=== PATIENT | female | born 1955 | race Caucasian/White ===

== ENCOUNTER 2018-09-04 10:33 | Inpatient (IN) | payer MEDICARE, MEDICAID ==
[2018-09-04] MEDS ORDERED: ceFAZolin 2 GM in Sodium Chloride 0.9% 50 ML IVPUSH SCH (16:00)
[2018-09-04] MEDS ORDERED: ceFAZolin 1 GM Vial IVPUSH SCH (16:00)
[2018-09-04] MEDS ORDERED: Albuterol/Ipratropium 3.0-0.5 MG/3 ML Neb Soln INH PRN (16:46)
[2018-09-04] MEDS ORDERED: Sodium Chloride 0.65% Nasal Spray 45 ML Bottle NAS PRN (16:46)
[2018-09-04] MEDS: Insulin Aspart 100 Units/ML 3 ML Pen SUBCUT SCH ×2 (17:16→22:12)
[2018-09-04] MEDS: Potassium Chloride 10 MEQ Tab.ER PO SCH (17:17)
[2018-09-04] MEDS: ceFAZolin 2 GM in Sodium Chloride 0.9% 50 ML IV SCH (17:17)
[2018-09-04] MEDS: Rifampin 300 MG Cap PO SCH (19:50)
[2018-09-04] MEDS: Multivitamin Tab PO SCH (19:50)
--- NOTE | 2018-09-04 20:16 | PCM.HP ---
H&P History of Present Illness - General Date of Service: 09/04/18 Admit Problem/Dx: Admission Diagnosis/Problem Admission Diagnosis/Problem Hardware complicating wound infection Source of Information: Family, Old Records History Limitations: Reports: Other (developmental disability) - History of Present Illness Initial Comments - Free Text/Narative: Patient admitted swing bed for IV antibiotics for the next 5 weeks. Patient had initially presented to our clinic and was seen by Sandy for right leg swelling and discomfort 3 days prior to being referred to [facility]. History of right lower extremity fracture with hardware placement in 2012. There was concern about cellulitis versus deep tissue involvement and hardware. Was started on IV Levaquin and switched to Vancomycin. Assessment concern was for deeper involvement so hardware was ultimately removed. Will continue IV antibiotics and physical therapy for strengthening Onset of Symptoms: Reports: Gradual Duration of Symptoms: Reports: Week(s): Location: Reports: Lower Extremity, Right Quality: Reports: Ache Severity: Mild - Related Data Allergies/Adverse Reactions: Allergies Allergy/AdvReac Type Severity Reaction Status Date / Time boric acid Allergy Cannot Verified 08/22/18 12:30 Remember cephalexin monohydrate Allergy Cannot Verified 09/04/18 11:59 [From Keflex] Remember clindamycin Allergy Cannot Verified 09/04/18 11:59 Remember erythromycin base Allergy Cannot Verified 09/04/18 11:59 [Erythromycin Base] Remember folic acid Allergy Other Verified 09/04/18 11:59 ibuprofen Allergy Cannot Verified 09/04/18 11:59 Remember magnesium hydroxide Allergy Cannot Verified 09/04/18 11:59 [From Milk of Magnesia] Remember magnesium hydroxide Allergy Cannot Verified 09/04/18 11:59 [From Milk of Magnesia] Remember Penicillins Allergy Cannot Verified 09/04/18 11:59 Remember sulfamethoxazole Allergy Cannot Verified 09/04/18 11:59 [From Bactrim] Remember trimethoprim [From Bactrim] Allergy Cannot Verified 09/04/18 11:59 Remember Home Medications: Home Meds Cholestyramine (With Sugar) [Cholestyramine Powder] 1 scoop PO BID 12/01/13 [ History] Insulin Aspart [NovoLOG] 1 - 10 units SUBCUT QIDACANDBED 12/01/13 [History] Levothyroxine 125 mcg PO DAILY 12/01/13 [History] Multivitamin [Multi-Vitamin Daily] 1 each PO BID 12/01/13 [History] Aspirin 81 mg PO DAILY 03/13/15 [History] Denosumab [Prolia] 60 mg SUBCUT Q6M 03/13/15 [History] Fexofenadine/Pseudoephedrine [Tammy-D 24 Hour Tablet] 1 tab PO DAILY 06/08/16 [History] Potassium Chloride [Klor-Con 10] 10 meq PO BIDMEALS #60 tab.er 06/11/16 [Rx] Albuterol/Ipratropium [DuoNeb 3.0-0.5 MG/3 ML] 1 ampule INH QID PRN 04/26/18 [ History] Fluticasone Propionate [Flonase Allergy Relief] 2 inh NASBOTH DAILY 04/26/18 [ History] Iron Ps Cmplx/Vit B12/Fa [Poly-Iron 150 Forte] 150 mg PO DAILY 04/26/18 [History ] Carboxymethylcellulose Sodium [Refresh Tears] 1 drop EYEBOTH TID 08/22/18 [ History] Insulin Degludec [Tresiba] 10 units SQ DAILY 09/04/18 [History] Nystatin 1 applic TOP BID PRN 09/04/18 [History] Sodium Chloride [[place] Saline] 1 spray KRUPA Q12H PRN 09/04/18 [History] Past Medical History HEENT History: Reports: Allergic Rhinitis, Other (See Below) Other HEENT History: dry eyes Cardiovascular History: Reports: Heart Failure, High Cholesterol, Hypertension, Other (See Below) Other Cardiovascular History: CVA Gastrointestinal History: Reports: Chronic Diarrhea, GERD Other Gastrointestinal History: reflux Genitourinary History: Reports: Other (See Below) Other Genitourinary History: yeast infections Musculoskeletal History: Reports: Osteoarthritis, Osteoporosis Other Musculoskeletal History: tibial plateau fracture in May 2014. Surgical repair by Dr. Macedo at [facility]. Patient resumed weight bearing with ambultation November 2013. 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 Hematologic History: Reports: Anemia Dermatologic History: Reports: Cellulitis - Infectious Disease History Infectious Disease History: Reports: C-Difficile, Hepatitis B, MRSA - Past Surgical History HEENT Surgical History: Reports: Adenoidectomy, Tonsillectomy Cardiovascular Surgical History: Reports: Other (See Below) Other Musculoskeletal Surgeries/Procedures:: Tib Fib repair to right leg Social & Family History - Tobacco Use Smoking Status *Q: Never Smoker - Caffeine Use Caffeine Use: Reports: None - Recreational Drug Use Recreational Drug Use: No H&P Review of Systems - Review of Systems: Review Of Systems: See Below General: Reports: Malaise, Weakness. Denies: Fever, Chills, Decreased Appetite HEENT: Reports: Rhinitis, Sinus Congestion Pulmonary: Denies: Shortness of Breath, Cough Cardiovascular: Reports: No Symptoms Gastrointestinal: Denies: Abdominal Pain, Nausea, Vomiting Genitourinary: Reports: Incontinence Musculoskeletal: Reports: Leg Pain Skin: Reports: Other (incision to right leg) Exam - Exam Exam: See Below - Vital Signs Vital Signs: Last Vital Signs Temp 98.2 F 09/04/18 19:47 Pulse 88 09/04/18 19:47 Resp 20 09/04/18 19:47 BP 122/57 L 09/04/18 19:47 Pulse Ox 98 09/04/18 19:47 Weight: 150 lb - Exam General: Alert, Cooperative HEENT: Conjunctiva Clear, EOMI, Nares Patent, Rhinitis Neck: Supple Lungs: Clear to Auscultation, Normal Respiratory Effort Cardiovascular: Regular Rate, Regular Rhythm GI/Abdominal Exam: Normal Bowel Sounds, Soft, Non-Tender Extremities: No Pedal Edema, Leg Pain Skin: Incision (incision/sutures intact to right knee region. Is mildly tender to this area with palpation. Has chronic venous discoloration to legs) Neuro Extensive - Mental Status: Alert, Other (responses appropriate. History of Down Syndrome/Developmental delay. ) - Patient Data Lab Results Last 24 hrs: Laboratory Results - last 24 hr 09/04/18 Range/Units 17:07 POC Glucose 281 H (75-105) mg/dl - Problem List (1) Hardware complicating wound infection SNOMED Code(s): 136925064 ICD Code: T84.7XXA - INFECT/INFLM REACT DUE TO OTH INT ORTH PROSTH DEV/GRFT, INIT Status: Acute Priority: High Current Visit: Yes (2) Diabetes mellitus type 2 SNOMED Code(s): 31282766 ICD Code: E11.9 - TYPE 2 DIABETES MELLITUS WITHOUT COMPLICATIONS Status: Chronic Priority: Medium Current Visit: Yes Problem List Initiated/Reviewed/Updated: Yes Orders Last 24hrs: Active Orders 24 hr Category Date Time Status Patient Status [ADT] Routine ADT 09/04/18 15:41 Active Communication Order [RC] 0800 Care 09/04/18 15:41 Active Communication Order [RC] ROUTINE Care 09/04/18 15:41 Active Oxygen Therapy [RC] .PRN Care 09/04/18 15:41 Active Up With Assistance [RC] .PRN Care 09/04/18 15:41 Active Vital Signs [RC] 0800,2000 Care 09/04/18 15:41 Active Wound Care [RC] 0800 Care 09/04/18 15:41 Active PT Evaluation and Treatment [CONS] Routine Cons 09/04/18 15:41 Active Consistent Carbohydrate Diet [DIET] Diet 09/04/18 Dinner Active C-REACTIVE PROTEIN [CHEM] Routine Lab 09/25/18 05:11 Ordered C-REACTIVE PROTEIN [CHEM] Routine Lab 10/02/18 05:11 Ordered C-REACTIVE PROTEIN [CHEM] Routine Lab 10/09/18 05:11 Ordered C-REACTIVE PROTEIN [CHEM] Routine Lab 10/16/18 05:11 Ordered C-REACTIVE PROTEIN [CHEM] Timed Lab 09/11/18 05:11 Ordered CBC WITH AUTO DIFF [HEME] Routine Lab 09/18/18 05:11 Ordered CBC WITH AUTO DIFF [HEME] Routine Lab 09/25/18 05:11 Ordered CBC WITH AUTO DIFF [HEME] Routine Lab 10/02/18 05:11 Ordered CBC WITH AUTO DIFF [HEME] Routine Lab 10/09/18 05:11 Ordered CBC WITH AUTO DIFF [HEME] Routine Lab 10/16/18 05:11 Ordered CBC WITH AUTO DIFF [HEME] Timed Lab 09/11/18 05:11 Ordered COMPREHENSIVE METABOLIC PN,CMP [CHEM] Routine Lab 09/18/18 05:11 Ordered COMPREHENSIVE METABOLIC PN,CMP [CHEM] Routine Lab 09/25/18 05:11 Ordered COMPREHENSIVE METABOLIC PN,CMP [CHEM] Routine Lab 10/02/18 05:11 Ordered COMPREHENSIVE METABOLIC PN,CMP [CHEM] Routine Lab 10/09/18 05:11 Ordered COMPREHENSIVE METABOLIC PN,CMP [CHEM] Routine Lab 10/16/18 05:11 Ordered COMPREHENSIVE METABOLIC PN,CMP [CHEM] Timed Lab 09/11/18 05:11 Ordered CRP [C-REACTIVE PROTEIN] [CHEM] Routine Lab 09/18/18 05:11 Ordered SEDIMENTATION RATE MANUAL [HEME] Routine Lab 09/18/18 05:11 Ordered SEDIMENTATION RATE MANUAL [HEME] Routine Lab 09/25/18 05:11 Ordered SEDIMENTATION RATE MANUAL [HEME] Routine Lab 10/02/18 05:11 Ordered SEDIMENTATION RATE MANUAL [HEME] Routine Lab 10/09/18 05:11 Ordered SEDIMENTATION RATE MANUAL [HEME] Routine Lab 10/16/18 05:11 Ordered SEDIMENTATION RATE MANUAL [HEME] Timed Lab 09/11/18 05:11 Ordered Albuterol/Ipratropium [DuoNeb 3.0-0.5 MG/3 ML] Med 09/04/18 16:46 Active 3 ml INH QID PRN Aspirin [Halfprin] Med 09/05/18 08:00 Active 81 mg PO DAILY Carboxymethylcellulose Sodium [Refresh Tears] Med 09/04/18 20:00 Pending 1 drop EYEBOTH TID Cholestyramine (With Sugar) [Cholestyramine Powder] Med 09/04/18 20:00 Pending 1 scoop PO BID Enoxaparin [Lovenox] Med 09/05/18 08:00 Active 30 mg SUBCUT DAILY Fluticasone Propionate [Flonase] Med 09/05/18 08:00 Active 0 gm NASBOTH DAILY Heparin Sodium [Heparin Lock Flush 100 Units/ML] Med 09/04/18 16:00 Active 300 units FLUSH Q8H Insulin Aspart [NovoLOG] Med 09/04/18 17:30 Active See Protocol SUBCUT WITHMEALSANDBED Insulin Glarg,Human.Rec.Analog [LantUS] Med 09/05/18 08:00 Active 10 unit SUBCUT DAILY Iron Polysaccharides Complex [Ferrex 150] Med 09/05/18 08:00 Active 150 mg PO DAILY Levothyroxine Med 09/05/18 07:00 Active 125 mcg PO 0700 Multivitamins [Tab-A-Snow] Med 09/04/18 20:00 Active 1 tab PO BID Nystatin [Nystop] Med 09/04/18 16:46 Active 0 gm TOP BID PRN Potassium Chloride [Klor-Con 10] Med 09/04/18 17:30 Active 10 meq PO BIDMEALS Sodium Chloride 0.65% [[place] Nasal [place]] Med 09/04/18 16:46 Active 0 ml KRUPA Q12H PRN ceFAZolin [Ancef] 2 gm Med 09/04/18 16:17 Active Sodium Chloride 0.9% [Normal Saline] 50 ml IV Q8H rifAMPin Med 09/04/18 20:00 Active 300 mg PO BID Resuscitation Status Routine Resus Stat 09/04/18 14:53 Ordered Medication Orders Albuterol/Ipratropium (Duoneb 3.0-0.5 Mg/3 Ml) 3 ml INH QID PRN PRN Reason: Wheezing Aspirin (Halfprin) 81 mg PO DAILY [facility] Enoxaparin Sodium (Lovenox) 30 mg SUBCUT DAILY [facility] Fluticasone Propionate (Flonase) 0 gm NASBOTH DAILY [facility] Heparin Sodium (Porcine) (Heparin Lock Flush 100 Units/Ml) 300 units FLUSH Q8H [facility] Last Admin: 09/04/18 17:17 Dose: 300 units Cefazolin Sodium 2 gm/ Sodium (Chloride) 50 mls @ 100 mls/hr IV Q8H [facility] Last Admin: 09/04/18 17:17 Dose: 100 mls/hr Insulin Aspart (Novolog) 0 unit SUBCUT WITHMEALSANDBED [facility]; Protocol Last Admin: 09/04/18 17:16 Dose: 6 units Insulin Glargine (Lantus) 10 unit SUBCUT DAILY [facility] Levothyroxine Sodium (Levothyroxine) 125 mcg PO 0700 [facility] Multivitamins/Minerals/Vitamin C (Tab-A-Snow) 1 tab PO BID [facility] Last Admin: 09/04/18 19:50 Dose: 1 tab Non-Formulary Medication (Carboxymethylcellulose Sodium [Refresh Tears]) 1 drop EYEBOTH TID [facility] Non-Formulary Medication (Cholestyramine (With Sugar) [Cholestyramine Powder]) 1 scoop PO BID [facility] Nystatin (Nystop) 0 gm TOP BID PRN PRN Reason: Wound Care Polysaccharide Iron Complex (Ferrex 150) 150 mg PO DAILY [facility] Potassium Chloride (Klor-Con 10) 10 meq PO BIDMEALS [facility] Last Admin: 09/04/18 17:17 Dose: 10 meq Rifampin (Rifampin) 300 mg PO BID [facility] Last Admin: 09/04/18 19:50 Dose: 300 mg Sodium Chloride ([place] Nasal [place]) 0 ml KRUPA Q12H PRN PRN Reason: Nasal Dryness Assessment/Plan Comment:: Admit to swing bed. Continue IV Ancef and Rifampin for the next 5 weeks. Weekly labs, will be forwarded to ID at [facility]. Physical therapy for strengthening.
[2018-09-05] MEDS: ceFAZolin 2 GM in Sodium Chloride 0.9% 50 ML IV SCH ×3 (01:03→15:49)
[2018-09-05] MEDS: Levothyroxine 125 MCG Tab PO SCH (06:52)
[2018-09-05] MEDS: Iron Polysaccharides Complex 150 MG Cap PO SCH (07:41)
[2018-09-05] MEDS: Potassium Chloride 10 MEQ Tab.ER PO SCH ×2 (07:42→17:19)
[2018-09-05] MEDS: Enoxaparin 30 MG/0.3 ML Syringe SUBCUT SCH (07:42)
[2018-09-05] MEDS: Aspirin 81 MG Tab.EC PO SCH (07:42)
[2018-09-05] MEDS: Multivitamin Tab PO SCH ×2 (07:44→19:21)
[2018-09-05] MEDS: Rifampin 300 MG Cap PO SCH ×2 (07:44→19:21)
[2018-09-05] MEDS: Fluticasone Propionate Nasal Spray 16 GM Bottle NASBOTH SCH (08:24)
[2018-09-05] MEDS: Insulin Glarg,Human.Rec.Analog 100 UNIT/ML ML SUBCUT SCH (08:33)
[2018-09-05] MEDS: Nystatin Topical Powder 15 GM Bottle TOP PRN ×2 (10:06→18:46)
[2018-09-06] MEDS: ceFAZolin 2 GM in Sodium Chloride 0.9% 50 ML IV SCH ×4 (00:50→23:40)
[2018-09-06] MEDS: Levothyroxine 125 MCG Tab PO SCH (06:36)
[2018-09-06] MEDS: Iron Polysaccharides Complex 150 MG Cap PO SCH (07:39)
[2018-09-06] MEDS: Aspirin 81 MG Tab.EC PO SCH (07:39)
[2018-09-06] MEDS: Potassium Chloride 10 MEQ Tab.ER PO SCH ×2 (07:39→17:33)
[2018-09-06] MEDS: Multivitamin Tab PO SCH ×2 (07:40→19:56)
[2018-09-06] MEDS: Insulin Glarg,Human.Rec.Analog 100 UNIT/ML ML SUBCUT SCH (07:40)
[2018-09-06] MEDS: Enoxaparin 30 MG/0.3 ML Syringe SUBCUT SCH (07:59)
[2018-09-06] MEDS: Fluticasone Propionate Nasal Spray 16 GM Bottle NASBOTH SCH (08:04)
[2018-09-06] MEDS: Rifampin 300 MG Cap PO SCH ×2 (08:04→19:56)
[2018-09-06] MEDS: Nystatin Topical Powder 15 GM Bottle TOP PRN ×2 (08:05→20:02)
[2018-09-07] MEDS: Levothyroxine 125 MCG Tab PO SCH (06:40)
[2018-09-07] MEDS: ceFAZolin 2 GM in Sodium Chloride 0.9% 50 ML IV SCH ×3 (08:05→23:32)
[2018-09-07] MEDS: Enoxaparin 30 MG/0.3 ML Syringe SUBCUT SCH (08:08)
[2018-09-07] MEDS: Potassium Chloride 10 MEQ Tab.ER PO SCH ×2 (08:10→17:47)
[2018-09-07] MEDS: Multivitamin Tab PO SCH ×2 (08:10→19:35)
[2018-09-07] MEDS: Aspirin 81 MG Tab.EC PO SCH (08:10)
[2018-09-07] MEDS: Iron Polysaccharides Complex 150 MG Cap PO SCH (08:10)
[2018-09-07] MEDS: Rifampin 300 MG Cap PO SCH ×2 (08:11→19:35)
[2018-09-07] MEDS: Fluticasone Propionate Nasal Spray 16 GM Bottle NASBOTH SCH (08:11)
[2018-09-07] MEDS: Insulin Glarg,Human.Rec.Analog 100 UNIT/ML ML SUBCUT SCH (08:11)
[2018-09-07] MEDS: Nystatin Topical Powder 15 GM Bottle TOP PRN ×2 (09:17→19:55)
[2018-09-07] MEDS ORDERED: CARBOXYMETHYLCELLULOSE SODIUM EYEBOTH SCH (14:00)
[2018-09-07] MEDS: [UNRECOGNIZED DRUG - OTHER] PO SCH (19:35)
[2018-09-07] MEDS: CHOLESTYRAMINE PO SCH (19:35)
[2018-09-08] MEDS: Levothyroxine 125 MCG Tab PO SCH (06:28)
[2018-09-08] MEDS: ceFAZolin 2 GM in Sodium Chloride 0.9% 50 ML IV SCH ×3 (08:07→23:44)
[2018-09-08] MEDS: [UNRECOGNIZED DRUG - OTHER] PO SCH ×2 (08:14→19:54)
[2018-09-08] MEDS: CHOLESTYRAMINE PO SCH ×2 (08:14→19:54)
[2018-09-08] MEDS: Iron Polysaccharides Complex 150 MG Cap PO SCH (08:15)
[2018-09-08] MEDS: Multivitamin Tab PO SCH ×2 (08:15→19:49)
[2018-09-08] MEDS: Fluticasone Propionate Nasal Spray 16 GM Bottle NASBOTH SCH (08:16)
[2018-09-08] MEDS: Aspirin 81 MG Tab.EC PO SCH (08:17)
[2018-09-08] MEDS: Potassium Chloride 10 MEQ Tab.ER PO SCH ×2 (08:17→17:47)
[2018-09-08] MEDS: Enoxaparin 30 MG/0.3 ML Syringe SUBCUT SCH (08:19)
[2018-09-08] MEDS: Rifampin 300 MG Cap PO SCH ×2 (08:21→19:53)
[2018-09-08] MEDS: Insulin Glarg,Human.Rec.Analog 100 UNIT/ML ML SUBCUT SCH (08:30)
--- NOTE | 2018-09-08 17:50 | PCM.SN ---
- Free Text/Narrative Note: Chart review reveals patients blood sugars have been 300-400s the past few days. Will increase Lantus from 10 units to 20 units daily. QID accu checks. Continue moderate dose SS novolog.
[2018-09-08] MEDS: Nystatin Topical Powder 15 GM Bottle TOP PRN (19:56)
[2018-09-09] MEDS: Levothyroxine 125 MCG Tab PO SCH (06:48)
[2018-09-09] MEDS: [UNRECOGNIZED DRUG - OTHER] PO SCH ×2 (08:32→19:42)
[2018-09-09] MEDS: Enoxaparin 30 MG/0.3 ML Syringe SUBCUT SCH (08:32)
[2018-09-09] MEDS: ceFAZolin 2 GM in Sodium Chloride 0.9% 50 ML IV SCH ×2 (08:32→16:53)
[2018-09-09] MEDS: Fluticasone Propionate Nasal Spray 16 GM Bottle NASBOTH SCH (08:32)
[2018-09-09] MEDS: CHOLESTYRAMINE PO SCH ×2 (08:32→19:42)
[2018-09-09] MEDS: Insulin Glarg,Human.Rec.Analog 100 UNIT/ML ML SUBCUT SCH (08:33)
[2018-09-09] MEDS: Rifampin 300 MG Cap PO SCH ×2 (08:35→19:43)
[2018-09-09] MEDS: Iron Polysaccharides Complex 150 MG Cap PO SCH (08:35)
[2018-09-09] MEDS: Aspirin 81 MG Tab.EC PO SCH (08:35)
[2018-09-09] MEDS: Potassium Chloride 10 MEQ Tab.ER PO SCH ×2 (08:35→16:53)
[2018-09-09] MEDS: Multivitamin Tab PO SCH ×2 (08:36→19:43)
[2018-09-10] MEDS: ceFAZolin 2 GM in Sodium Chloride 0.9% 50 ML IV SCH ×4 (00:21→23:23)
[2018-09-10] MEDS: Levothyroxine 125 MCG Tab PO SCH (06:50)
[2018-09-10] MEDS: CHOLESTYRAMINE PO SCH ×2 (07:55→19:35)
[2018-09-10] MEDS: [UNRECOGNIZED DRUG - OTHER] PO SCH ×2 (07:55→19:35)
[2018-09-10] MEDS: Rifampin 300 MG Cap PO SCH ×2 (07:56→19:35)
[2018-09-10] MEDS: Insulin Glarg,Human.Rec.Analog 100 UNIT/ML ML SUBCUT SCH (07:57)
[2018-09-10] MEDS: Enoxaparin 30 MG/0.3 ML Syringe SUBCUT SCH (07:57)
[2018-09-10] MEDS: Fluticasone Propionate Nasal Spray 16 GM Bottle NASBOTH SCH (07:59)
[2018-09-10] MEDS: Potassium Chloride 10 MEQ Tab.ER PO SCH ×2 (08:00→16:58)
[2018-09-10] MEDS: Multivitamin Tab PO SCH ×2 (08:01→19:35)
[2018-09-10] MEDS: Aspirin 81 MG Tab.EC PO SCH (08:01)
[2018-09-10] MEDS: Iron Polysaccharides Complex 150 MG Cap PO SCH (08:01)
[2018-09-10] MEDS: Nystatin Topical Powder 15 GM Bottle TOP PRN (19:36)
[2018-09-11] MEDS: Levothyroxine 125 MCG Tab PO SCH (06:28)
[2018-09-11] MEDS: CHOLESTYRAMINE PO SCH ×2 (07:33→19:32)
[2018-09-11] MEDS: [UNRECOGNIZED DRUG - OTHER] PO SCH ×2 (07:33→19:32)
[2018-09-11] MEDS: Aspirin 81 MG Tab.EC PO SCH (07:41)
[2018-09-11] MEDS: Potassium Chloride 10 MEQ Tab.ER PO SCH ×2 (07:42→17:14)
[2018-09-11] MEDS: Multivitamin Tab PO SCH ×2 (07:42→19:32)
[2018-09-11] MEDS: Rifampin 300 MG Cap PO SCH ×2 (07:42→19:32)
[2018-09-11] MEDS: Iron Polysaccharides Complex 150 MG Cap PO SCH (07:42)
[2018-09-11] MEDS: Nystatin Topical Powder 15 GM Bottle TOP PRN (07:42)
[2018-09-11] MEDS: Enoxaparin 30 MG/0.3 ML Syringe SUBCUT SCH (07:43)
[2018-09-11] MEDS: ceFAZolin 2 GM in Sodium Chloride 0.9% 50 ML IV SCH ×2 (07:43→15:38)
[2018-09-11] MEDS: Fluticasone Propionate Nasal Spray 16 GM Bottle NASBOTH SCH (07:43)
[2018-09-11] MEDS: Insulin Glarg,Human.Rec.Analog 100 UNIT/ML ML SUBCUT SCH (08:22)
[2018-09-11] MEDS: Acetaminophen 325 MG Tab PO PRN (08:23)
[2018-09-11] MEDS ORDERED: Acetaminophen 325 MG Tab ONE (08:23)
[2018-09-12] MEDS: ceFAZolin 2 GM in Sodium Chloride 0.9% 50 ML IV SCH ×4 (00:02→23:33)
[2018-09-12] MEDS: Levothyroxine 125 MCG Tab PO SCH (06:51)
[2018-09-12] MEDS: Enoxaparin 30 MG/0.3 ML Syringe SUBCUT SCH (07:37)
[2018-09-12] MEDS: [UNRECOGNIZED DRUG - OTHER] PO SCH ×2 (07:39→19:53)
[2018-09-12] MEDS: CHOLESTYRAMINE PO SCH ×2 (07:39→19:53)
[2018-09-12] MEDS: Iron Polysaccharides Complex 150 MG Cap PO SCH (07:40)
[2018-09-12] MEDS: Fluticasone Propionate Nasal Spray 16 GM Bottle NASBOTH SCH (07:40)
[2018-09-12] MEDS: Aspirin 81 MG Tab.EC PO SCH (07:41)
[2018-09-12] MEDS: Potassium Chloride 10 MEQ Tab.ER PO SCH ×2 (07:41→17:33)
[2018-09-12] MEDS: Multivitamin Tab PO SCH ×2 (07:42→19:52)
[2018-09-12] MEDS: Rifampin 300 MG Cap PO SCH ×2 (07:42→19:54)
[2018-09-12] MEDS: Insulin Glarg,Human.Rec.Analog 100 UNIT/ML ML SUBCUT SCH (08:19)
[2018-09-12] MEDS: Nystatin Topical Powder 15 GM Bottle TOP PRN (09:20)
[2018-09-13] MEDS: Levothyroxine 125 MCG Tab PO SCH (06:40)
[2018-09-13] MEDS: Enoxaparin 30 MG/0.3 ML Syringe SUBCUT SCH (07:35)
[2018-09-13] MEDS: ceFAZolin 2 GM in Sodium Chloride 0.9% 50 ML IV SCH ×3 (07:35→23:22)
[2018-09-13] MEDS: Potassium Chloride 10 MEQ Tab.ER PO SCH ×2 (07:36→17:45)
[2018-09-13] MEDS: Insulin Glarg,Human.Rec.Analog 100 UNIT/ML ML SUBCUT SCH (07:36)
[2018-09-13] MEDS: Multivitamin Tab PO SCH ×2 (07:36→19:51)
[2018-09-13] MEDS: Aspirin 81 MG Tab.EC PO SCH (07:36)
[2018-09-13] MEDS: Iron Polysaccharides Complex 150 MG Cap PO SCH (07:37)
[2018-09-13] MEDS: [UNRECOGNIZED DRUG - OTHER] PO SCH ×2 (07:38→19:52)
[2018-09-13] MEDS: CHOLESTYRAMINE PO SCH ×2 (07:38→19:52)
[2018-09-13] MEDS: Fluticasone Propionate Nasal Spray 16 GM Bottle NASBOTH SCH (07:38)
[2018-09-13] MEDS: Rifampin 300 MG Cap PO SCH ×2 (07:59→19:51)
[2018-09-13] MEDS: Acetaminophen 325 MG Tab PO PRN (15:06)
[2018-09-14] MEDS: Levothyroxine 125 MCG Tab PO SCH (06:21)
[2018-09-14] MEDS: Aspirin 81 MG Tab.EC PO SCH (07:49)
[2018-09-14] MEDS: Iron Polysaccharides Complex 150 MG Cap PO SCH (07:49)
[2018-09-14] MEDS: Potassium Chloride 10 MEQ Tab.ER PO SCH ×2 (07:49→17:40)
[2018-09-14] MEDS: Multivitamin Tab PO SCH ×2 (07:49→19:41)
[2018-09-14] MEDS: [UNRECOGNIZED DRUG - OTHER] PO SCH ×2 (07:51→19:41)
[2018-09-14] MEDS: Fluticasone Propionate Nasal Spray 16 GM Bottle NASBOTH SCH (07:51)
[2018-09-14] MEDS: CHOLESTYRAMINE PO SCH ×2 (07:51→19:41)
[2018-09-14] MEDS: Enoxaparin 30 MG/0.3 ML Syringe SUBCUT SCH (07:52)
[2018-09-14] MEDS: Rifampin 300 MG Cap PO SCH ×2 (07:53→19:41)
[2018-09-14] MEDS: Insulin Glarg,Human.Rec.Analog 100 UNIT/ML ML SUBCUT SCH (08:03)
[2018-09-14] MEDS: ceFAZolin 2 GM in Sodium Chloride 0.9% 50 ML IV SCH ×3 (08:10→23:38)
[2018-09-15] MEDS: Levothyroxine 125 MCG Tab PO SCH (06:18)
[2018-09-15] MEDS: ceFAZolin 2 GM in Sodium Chloride 0.9% 50 ML IV SCH ×3 (07:46→23:37)
[2018-09-15] MEDS: [UNRECOGNIZED DRUG - OTHER] PO SCH ×2 (07:49→20:17)
[2018-09-15] MEDS: CHOLESTYRAMINE PO SCH ×2 (07:49→20:17)
[2018-09-15] MEDS: Enoxaparin 30 MG/0.3 ML Syringe SUBCUT SCH (07:50)
[2018-09-15] MEDS: Iron Polysaccharides Complex 150 MG Cap PO SCH (07:51)
[2018-09-15] MEDS: Multivitamin Tab PO SCH ×2 (07:51→20:17)
[2018-09-15] MEDS: Potassium Chloride 10 MEQ Tab.ER PO SCH ×2 (07:51→17:23)
[2018-09-15] MEDS: Aspirin 81 MG Tab.EC PO SCH (07:51)
[2018-09-15] MEDS: Rifampin 300 MG Cap PO SCH ×2 (07:52→20:17)
[2018-09-15] MEDS: Fluticasone Propionate Nasal Spray 16 GM Bottle NASBOTH SCH (07:52)
[2018-09-15] MEDS: Insulin Glarg,Human.Rec.Analog 100 UNIT/ML ML SUBCUT SCH (08:27)
[2018-09-15] MEDS: Acetaminophen 325 MG Tab PO PRN (10:15)
[2018-09-15] MEDS: Nystatin Topical Powder 15 GM Bottle TOP PRN (11:14)
[2018-09-16] MEDS: Levothyroxine 125 MCG Tab PO SCH (06:38)
[2018-09-16] MEDS: Insulin Glarg,Human.Rec.Analog 100 UNIT/ML ML SUBCUT SCH (07:46)
[2018-09-16] MEDS: Enoxaparin 30 MG/0.3 ML Syringe SUBCUT SCH (07:47)
[2018-09-16] MEDS: ceFAZolin 2 GM in Sodium Chloride 0.9% 50 ML IV SCH ×2 (07:49→16:04)
[2018-09-16] MEDS: Aspirin 81 MG Tab.EC PO SCH (07:50)
[2018-09-16] MEDS: Potassium Chloride 10 MEQ Tab.ER PO SCH ×2 (07:50→17:15)
[2018-09-16] MEDS: Iron Polysaccharides Complex 150 MG Cap PO SCH (07:50)
[2018-09-16] MEDS: Multivitamin Tab PO SCH ×2 (07:50→19:50)
[2018-09-16] MEDS: [UNRECOGNIZED DRUG - OTHER] PO SCH ×2 (07:51→19:51)
[2018-09-16] MEDS: Fluticasone Propionate Nasal Spray 16 GM Bottle NASBOTH SCH (07:51)
[2018-09-16] MEDS: Rifampin 300 MG Cap PO SCH ×2 (07:51→19:50)
[2018-09-16] MEDS: CHOLESTYRAMINE PO SCH ×2 (07:51→19:51)
[2018-09-17] MEDS: ceFAZolin 2 GM in Sodium Chloride 0.9% 50 ML IV SCH ×3 (09:42→23:57)
[2018-09-17] MEDS: Levothyroxine 125 MCG Tab PO SCH (09:42)
[2018-09-17] MEDS: CHOLESTYRAMINE PO SCH ×2 (09:42→19:45)
[2018-09-17] MEDS: Iron Polysaccharides Complex 150 MG Cap PO SCH (09:42)
[2018-09-17] MEDS: [UNRECOGNIZED DRUG - OTHER] PO SCH ×2 (09:42→19:45)
[2018-09-17] MEDS: Enoxaparin 30 MG/0.3 ML Syringe SUBCUT SCH (09:43)
[2018-09-17] MEDS: Insulin Glarg,Human.Rec.Analog 100 UNIT/ML ML SUBCUT SCH (09:43)
[2018-09-17] MEDS: Fluticasone Propionate Nasal Spray 16 GM Bottle NASBOTH SCH (09:43)
[2018-09-17] MEDS: Aspirin 81 MG Tab.EC PO SCH (09:43)
[2018-09-17] MEDS: Multivitamin Tab PO SCH ×2 (09:43→19:45)
[2018-09-17] MEDS: Rifampin 300 MG Cap PO SCH ×2 (09:43→19:45)
[2018-09-17] MEDS: Potassium Chloride 10 MEQ Tab.ER PO SCH ×2 (09:43→17:29)
[2018-09-17] MEDS: Nystatin Topical Powder 15 GM Bottle TOP PRN (19:49)
[2018-09-18] MEDS: Levothyroxine 125 MCG Tab PO SCH (06:22)
[2018-09-18] MEDS: Enoxaparin 30 MG/0.3 ML Syringe SUBCUT SCH (07:47)
[2018-09-18] MEDS: ceFAZolin 2 GM in Sodium Chloride 0.9% 50 ML IV SCH ×3 (07:48→23:25)
[2018-09-18] MEDS: Aspirin 81 MG Tab.EC PO SCH (07:48)
[2018-09-18] MEDS: Iron Polysaccharides Complex 150 MG Cap PO SCH (07:49)
[2018-09-18] MEDS: Potassium Chloride 10 MEQ Tab.ER PO SCH ×2 (07:49→17:37)
[2018-09-18] MEDS: Multivitamin Tab PO SCH ×2 (07:49→21:16)
[2018-09-18] MEDS: Rifampin 300 MG Cap PO SCH ×2 (07:55→21:16)
[2018-09-18] MEDS: Fluticasone Propionate Nasal Spray 16 GM Bottle NASBOTH SCH (07:55)
[2018-09-18] MEDS: CHOLESTYRAMINE PO SCH ×2 (08:00→21:16)
[2018-09-18] MEDS: [UNRECOGNIZED DRUG - OTHER] PO SCH ×2 (08:00→21:16)
[2018-09-18] MEDS: Insulin Glarg,Human.Rec.Analog 100 UNIT/ML ML SUBCUT SCH (08:27)
--- NOTE | 2018-09-18 10:46 | PCM.PN ---
- General Info Date of Service: 09/18/18 Admission Dx/Problem (Free Text): Admission Diagnosis/Problem Admission Diagnosis/Problem Hardware complicating wound infection Functional Status: Reports: Pain Controlled, Tolerating Diet, Ambulating, Urinating - Review of Systems General: Reports: Weakness. Denies: Fever HEENT: Reports: No Symptoms Pulmonary: Denies: Shortness of Breath, Cough Cardiovascular: Denies: Chest Pain, Edema, Lightheadedness Gastrointestinal: Denies: Abdominal Pain, Nausea, Vomiting Genitourinary: Reports: No Symptoms Musculoskeletal: Reports: Leg Pain, Joint Pain Skin: Reports: Other (incision right lateral knee) Neurological: Reports: No Symptoms - Patient Data Vitals - Most Recent: Last Vital Signs Temp 97.5 F 09/18/18 08:00 Pulse 90 09/18/18 08:00 Resp 20 09/18/18 08:00 BP 115/58 L 09/18/18 08:00 Pulse Ox 94 L 09/18/18 08:00 Weight - Most Recent: 152 lb Lab Results Last 24 Hours: Laboratory Results - last 24 hr 09/16/18 09/16/18 09/17/18 Range/Units 17:08 20:01 07:36 WBC (5.0-10.0) 10^3/uL RBC (4.00-5.50) 10^6/uL Hgb (12.0-16.0) g/dL Hct (37.0-47.0) % MCV (82.0-94.0) fL MCH (27.0-32.0) pg MCHC (33.0-38.0) g/dL RDW Coeff of Dav (11.0-15.0) % Plt Count (150-400) 10^3/uL Neut % (Auto) (35-85) % Lymph % (Auto) (10-55) % [place] % (Auto) (0-16) % Eos % (Auto) (0-5) % Baso % (Auto) (0-3) % Neut # (Auto) (1.80-7.00) 10^3/uL Lymph # (Auto) (1.00-4.80) 10^3/uL [place] # (Auto) (0.00-0.80) 10^3/uL Eos # (Auto) (0.00-0.45) 10^3/uL Baso # (Auto) 10^3/uL ESR (0-20) mm/hr POC Glucose 235 H 311 H 174 H (75-105) mg/dl 09/17/18 09/17/18 09/17/18 Range/Units 11:27 17:20 20:50 WBC (5.0-10.0) 10^3/uL RBC (4.00-5.50) 10^6/uL Hgb (12.0-16.0) g/dL Hct (37.0-47.0) % MCV (82.0-94.0) fL MCH (27.0-32.0) pg MCHC (33.0-38.0) g/dL RDW Coeff of Dav (11.0-15.0) % Plt Count (150-400) 10^3/uL Neut % (Auto) (35-85) % Lymph % (Auto) (10-55) % [place] % (Auto) (0-16) % Eos % (Auto) (0-5) % Baso % (Auto) (0-3) % Neut # (Auto) (1.80-7.00) 10^3/uL Lymph # (Auto) (1.00-4.80) 10^3/uL [place] # (Auto) (0.00-0.80) 10^3/uL Eos # (Auto) (0.00-0.45) 10^3/uL Baso # (Auto) 10^3/uL ESR (0-20) mm/hr POC Glucose 335 H 223 H 402 H* (75-105) mg/dl 09/18/18 09/18/18 Range/Units 07:10 07:46 WBC 3.3 L (5.0-10.0) 10^3/uL RBC 4.19 (4.00-5.50) 10^6/uL Hgb 13.8 (12.0-16.0) g/dL Hct 42.1 (37.0-47.0) % MCV 100.5 H (82.0-94.0) fL MCH 32.9 H (27.0-32.0) pg MCHC 32.8 L (33.0-38.0) g/dL RDW Coeff of Dav 15.2 H (11.0-15.0) % Plt Count 191 (150-400) 10^3/uL Neut % (Auto) 58.0 (35-85) % Lymph % (Auto) 27.2 (10-55) % [place] % (Auto) 10.3 (0-16) % Eos % (Auto) 3.0 (0-5) % Baso % (Auto) 1.5 (0-3) % Neut # (Auto) 1.92 (1.80-7.00) 10^3/uL Lymph # (Auto) 0.90 L (1.00-4.80) 10^3/uL [place] # (Auto) 0.34 (0.00-0.80) 10^3/uL Eos # (Auto) 0.10 (0.00-0.45) 10^3/uL Baso # (Auto) 0.05 10^3/uL ESR 46 H (0-20) mm/hr POC Glucose 206 H (75-105) mg/dl Med Orders - Current: Current Medications Acetaminophen (Tylenol) 650 mg PO Q4H PRN PRN Reason: Pain Last Admin: 09/15/18 10:15 Dose: 650 mg Albuterol/Ipratropium (Duoneb 3.0-0.5 Mg/3 Ml) 3 ml INH QID PRN PRN Reason: Wheezing Aspirin (Halfprin) 81 mg PO DAILY [facility] Last Admin: 09/18/18 07:48 Dose: 81 mg Enoxaparin Sodium (Lovenox) 30 mg SUBCUT DAILY [facility] Last Admin: 09/18/18 07:47 Dose: 30 mg Fluticasone Propionate (Flonase) 0 gm NASBOTH DAILY [facility] Last Admin: 09/18/18 07:55 Dose: 2 spray Heparin Sodium (Porcine) (Heparin Lock Flush 100 Units/Ml) 300 units FLUSH Q8H [facility] Last Admin: 09/18/18 07:47 Dose: 300 units Cefazolin Sodium 2 gm/ Sodium (Chloride) 50 mls @ 100 mls/hr IV Q8H [facility] Last Admin: 09/18/18 07:48 Dose: 100 mls/hr Insulin Aspart (Novolog) 0 unit SUBCUT WITHMEALSANDBED [facility]; Protocol Last Admin: 09/18/18 08:26 Dose: 4 units Insulin Glargine (Lantus) 20 unit SUBCUT DAILY [facility] Last Admin: 09/18/18 08:27 Dose: 20 units Levothyroxine Sodium (Levothyroxine) 125 mcg PO ACBREAKFAST [facility] Last Admin: 09/18/18 06:22 Dose: 125 mcg Multivitamins/Minerals/Vitamin C (Tab-A-Snow) 1 tab PO BID [facility] Last Admin: 09/18/18 07:49 Dose: 1 tab Ptom Cholestyramine (With Sugar) 1 Scoop 1 scoop PO BID [facility] Last Admin: 09/18/18 08:00 Dose: 1 scoop Carboxymethylcellulo se Sodium [Refresh Tears] 1 Drop 1 drop EYEBOTH TID PRN PRN Reason: Dry Eyes Nystatin (Nystop) 0 gm TOP BID PRN PRN Reason: Wound Care Last Admin: 09/17/18 19:49 Dose: 1 applic Polysaccharide Iron Complex (Ferrex 150) 150 mg PO DAILY [facility] Last Admin: 09/18/18 07:49 Dose: 150 mg Potassium Chloride (Klor-Con 10) 10 meq PO BIDMEALS [facility] Last Admin: 09/18/18 07:49 Dose: 10 meq Rifampin (Rifampin) 300 mg PO BID [facility] Last Admin: 09/18/18 07:55 Dose: 300 mg Sodium Chloride ([place] Nasal [place]) 0 ml KRUPA Q12H PRN PRN Reason: Nasal Dryness Discontinued Medications Acetaminophen (Tylenol) Confirm Administered Dose 650 mg .ROUTE .STK-MED ONE Stop: 09/11/18 08:24 Last Admin: 09/11/18 08:24 Dose: Not Given Cefazolin Sodium (Ancef) 2 gm IVPUSH Q8H [facility] Last Admin: 09/04/18 16:37 Dose: Not Given Cefazolin Sodium 2 gm/ Sodium (Chloride) 50 mls @ 100 mls/hr IVPUSH Q8H [facility] Last Admin: 09/04/18 16:37 Dose: Not Given Cefazolin Sodium 2 gm/ Sodium (Chloride) 50 mls @ 100 mls/hr IV Q8H [facility] Last Admin: 09/05/18 07:45 Dose: 100 mls/hr Cefazolin Sodium 2 gm/ Sodium (Chloride) 50 mls @ 100 mls/hr IV 0000,0800,1600 [facility] Last Admin: 09/07/18 08:05 Dose: 100 mls/hr Insulin Aspart (Novolog) 0 unit SUBCUT WITHMEALSANDBED [facility]; Protocol Last Admin: 09/04/18 22:12 Dose: Not Given Insulin Glargine (Lantus) 10 unit SUBCUT DAILY [facility] Last Admin: 09/08/18 08:30 Dose: 10 units Levothyroxine Sodium (Levothyroxine) 125 mcg PO 0700 [facility] Last Admin: 09/07/18 06:40 Dose: 125 mcg Ptom Carboxymethylcellulo se Sodium [Refresh Tears] 1 Drop 1 drop EYEBOTH TID [facility] - Exam General: Alert, Oriented HEENT: Mucous Membr. Moist/[place] Neck: Supple Lungs: Clear to Auscultation, Normal Respiratory Effort Cardiovascular: Regular Rate, Regular Rhythm GI/Abdominal Exam: Normal Bowel Sounds, Soft, Non-Tender Extremities: Normal Inspection, No Pedal Edema Skin: Warm, Dry Wound/Incisions: Healing Well, Other (right lateral knee incision is healing well. NO drainage. Small scab. ) - Problem List & Annotations (1) Hardware complicating wound infection SNOMED Code(s): 525352386 Code(s): T84.7XXA - INFECT/INFLM REACT DUE TO OTH INT ORTH PROSTH DEV/GRFT, INIT Status: Acute Priority: High Current Visit: Yes Qualifiers: Encounter type: initial encounter Qualified Code(s): T84.7XXA - Infection and inflammatory reaction due to other internal orthopedic prosthetic devices, implants and grafts, initial encounter (2) Diabetes mellitus type 2 SNOMED Code(s): 42875879 Code(s): E11.9 - TYPE 2 DIABETES MELLITUS WITHOUT COMPLICATIONS Status: Chronic Priority: Medium Current Visit: Yes - Problem List Review Problem List Initiated/Reviewed/Updated: Yes - My Orders Last 24 Hours: My Active Orders 09/18/18 08:40 COMPREHENSIVE METABOLIC PN,CMP [CHEM] Routine CRP [C-REACTIVE PROTEIN] [CHEM] Routine 09/25/18 05:11 C-REACTIVE PROTEIN [CHEM] Routine CBC WITH AUTO DIFF [HEME] Routine COMPREHENSIVE METABOLIC PN,CMP [CHEM] Routine SEDIMENTATION RATE MANUAL [HEME] Routine 10/02/18 05:11 C-REACTIVE PROTEIN [CHEM] Routine CBC WITH AUTO DIFF [HEME] Routine COMPREHENSIVE METABOLIC PN,CMP [CHEM] Routine SEDIMENTATION RATE MANUAL [HEME] Routine 10/09/18 05:11 C-REACTIVE PROTEIN [CHEM] Routine CBC WITH AUTO DIFF [HEME] Routine COMPREHENSIVE METABOLIC PN,CMP [CHEM] Routine SEDIMENTATION RATE MANUAL [HEME] Routine 10/16/18 05:11 C-REACTIVE PROTEIN [CHEM] Routine CBC WITH AUTO DIFF [HEME] Routine COMPREHENSIVE METABOLIC PN,CMP [CHEM] Routine SEDIMENTATION RATE MANUAL [HEME] Routine - Assessment Assessment:: S/P hardware removal from Right Knee due to infection - Plan Plan:: Admit to swing bed. Continue IV Ancef and Rifampin for the next 5 weeks. Weekly labs, will be forwarded to ID at [facility]. Physical therapy for strengthening. 09-18-2018 Patient seen today for 14 day recert. She is doing well. Ambulating with walker, stand by assist. Is slow and has purposeful gait but tolerating well. Did remove sutures from site last week, incision is healing well. Clean, small scab. Lung sounds are clear. Heart rhythm regular. No edema. Appetite has been good. Will continue IV antibiotics for the total of 6 weeks.
[2018-09-18] MEDS: Nystatin Topical Powder 15 GM Bottle TOP PRN (13:02)
[2018-09-19] MEDS: Levothyroxine 125 MCG Tab PO SCH (06:39)
[2018-09-19] MEDS: Insulin Glarg,Human.Rec.Analog 100 UNIT/ML ML SUBCUT SCH (08:32)
[2018-09-19] MEDS: Enoxaparin 30 MG/0.3 ML Syringe SUBCUT SCH (08:33)
[2018-09-19] MEDS: Multivitamin Tab PO SCH ×2 (08:36→19:52)
[2018-09-19] MEDS: Aspirin 81 MG Tab.EC PO SCH (08:36)
[2018-09-19] MEDS: Iron Polysaccharides Complex 150 MG Cap PO SCH (08:36)
[2018-09-19] MEDS: Potassium Chloride 10 MEQ Tab.ER PO SCH ×2 (08:36→17:18)
[2018-09-19] MEDS: Rifampin 300 MG Cap PO SCH ×2 (08:37→19:53)
[2018-09-19] MEDS: CHOLESTYRAMINE PO SCH ×2 (08:37→19:53)
[2018-09-19] MEDS: [UNRECOGNIZED DRUG - OTHER] PO SCH ×2 (08:37→19:53)
[2018-09-19] MEDS: Fluticasone Propionate Nasal Spray 16 GM Bottle NASBOTH SCH (08:38)
[2018-09-19] MEDS: ceFAZolin 2 GM in Sodium Chloride 0.9% 50 ML IV SCH ×3 (09:13→23:28)
[2018-09-19] MEDS: Nystatin Topical Powder 15 GM Bottle TOP PRN (14:45)
[2018-09-20] MEDS: Levothyroxine 125 MCG Tab PO SCH (06:42)
[2018-09-20] MEDS: CHOLESTYRAMINE PO SCH ×2 (08:16→20:17)
[2018-09-20] MEDS: [UNRECOGNIZED DRUG - OTHER] PO SCH ×2 (08:16→20:17)
[2018-09-20] MEDS: ceFAZolin 2 GM in Sodium Chloride 0.9% 50 ML IV SCH ×3 (08:16→23:56)
[2018-09-20] MEDS: Aspirin 81 MG Tab.EC PO SCH (08:17)
[2018-09-20] MEDS: Potassium Chloride 10 MEQ Tab.ER PO SCH ×2 (08:17→17:24)
[2018-09-20] MEDS: Iron Polysaccharides Complex 150 MG Cap PO SCH (08:17)
[2018-09-20] MEDS: Enoxaparin 30 MG/0.3 ML Syringe SUBCUT SCH (08:17)
[2018-09-20] MEDS: Multivitamin Tab PO SCH ×2 (08:17→20:13)
[2018-09-20] MEDS: Fluticasone Propionate Nasal Spray 16 GM Bottle NASBOTH SCH (08:17)
[2018-09-20] MEDS: Rifampin 300 MG Cap PO SCH ×2 (08:18→20:12)
[2018-09-20] MEDS ORDERED: Zinc Oxide 20% Oint 56.7 GM Tube TOP PRN (08:23)
[2018-09-20] MEDS: Insulin Glarg,Human.Rec.Analog 100 UNIT/ML ML SUBCUT SCH (08:27)
[2018-09-20] MEDS: Nystatin Topical Powder 15 GM Bottle TOP PRN (22:29)
[2018-09-21] MEDS: Levothyroxine 125 MCG Tab PO SCH (06:06)
[2018-09-21] MEDS: ceFAZolin 2 GM in Sodium Chloride 0.9% 50 ML IV SCH ×3 (07:40→23:22)
[2018-09-21] MEDS: Aspirin 81 MG Tab.EC PO SCH (07:42)
[2018-09-21] MEDS: CHOLESTYRAMINE PO SCH ×2 (07:42→19:30)
[2018-09-21] MEDS: [UNRECOGNIZED DRUG - OTHER] PO SCH ×2 (07:42→19:30)
[2018-09-21] MEDS: Fluticasone Propionate Nasal Spray 16 GM Bottle NASBOTH SCH (07:42)
[2018-09-21] MEDS: Multivitamin Tab PO SCH ×2 (07:42→19:34)
[2018-09-21] MEDS: Potassium Chloride 10 MEQ Tab.ER PO SCH ×2 (07:42→17:43)
[2018-09-21] MEDS: Iron Polysaccharides Complex 150 MG Cap PO SCH (07:42)
[2018-09-21] MEDS: Enoxaparin 30 MG/0.3 ML Syringe SUBCUT SCH (07:43)
[2018-09-21] MEDS: Insulin Glarg,Human.Rec.Analog 100 UNIT/ML ML SUBCUT SCH (08:10)
[2018-09-21] MEDS: Rifampin 300 MG Cap PO SCH ×2 (08:13→19:31)
[2018-09-22] MEDS: Levothyroxine 125 MCG Tab PO SCH (06:07)
[2018-09-22] MEDS: ceFAZolin 2 GM in Sodium Chloride 0.9% 50 ML IV SCH ×2 (07:55→15:38)
[2018-09-22] MEDS: Potassium Chloride 10 MEQ Tab.ER PO SCH ×2 (07:57→17:16)
[2018-09-22] MEDS: Iron Polysaccharides Complex 150 MG Cap PO SCH (07:57)
[2018-09-22] MEDS: Multivitamin Tab PO SCH ×2 (07:57→20:25)
[2018-09-22] MEDS: Aspirin 81 MG Tab.EC PO SCH (07:57)
[2018-09-22] MEDS: Rifampin 300 MG Cap PO SCH ×2 (07:58→20:25)
[2018-09-22] MEDS: Enoxaparin 30 MG/0.3 ML Syringe SUBCUT SCH (07:58)
[2018-09-22] MEDS: CHOLESTYRAMINE PO SCH ×2 (07:58→20:25)
[2018-09-22] MEDS: [UNRECOGNIZED DRUG - OTHER] PO SCH ×2 (07:58→20:25)
[2018-09-22] MEDS: Fluticasone Propionate Nasal Spray 16 GM Bottle NASBOTH SCH (07:59)
[2018-09-22] MEDS: Insulin Glarg,Human.Rec.Analog 100 UNIT/ML ML SUBCUT SCH (09:28)
[2018-09-23] MEDS: ceFAZolin 2 GM in Sodium Chloride 0.9% 50 ML IV SCH ×4 (00:41→23:36)
[2018-09-23] MEDS: Levothyroxine 125 MCG Tab PO SCH (06:59)
[2018-09-23] MEDS: Enoxaparin 30 MG/0.3 ML Syringe SUBCUT SCH (07:38)
[2018-09-23] MEDS: Multivitamin Tab PO SCH ×2 (07:39→20:04)
[2018-09-23] MEDS: Aspirin 81 MG Tab.EC PO SCH (07:39)
[2018-09-23] MEDS: Potassium Chloride 10 MEQ Tab.ER PO SCH ×2 (07:39→17:20)
[2018-09-23] MEDS: [UNRECOGNIZED DRUG - OTHER] PO SCH ×2 (07:40→20:06)
[2018-09-23] MEDS: Fluticasone Propionate Nasal Spray 16 GM Bottle NASBOTH SCH (07:40)
[2018-09-23] MEDS: Iron Polysaccharides Complex 150 MG Cap PO SCH (07:40)
[2018-09-23] MEDS: CHOLESTYRAMINE PO SCH ×2 (07:40→20:06)
[2018-09-23] MEDS: Rifampin 300 MG Cap PO SCH ×2 (07:41→20:06)
[2018-09-23] MEDS: Insulin Glarg,Human.Rec.Analog 100 UNIT/ML ML SUBCUT SCH (08:20)
[2018-09-23] MEDS: Nystatin Topical Powder 15 GM Bottle TOP PRN (10:45)
[2018-09-24] MEDS: Levothyroxine 125 MCG Tab PO SCH (06:01)
[2018-09-24] MEDS: Insulin Glarg,Human.Rec.Analog 100 UNIT/ML ML SUBCUT SCH (08:00)
[2018-09-24] MEDS: ceFAZolin 2 GM in Sodium Chloride 0.9% 50 ML IV SCH ×2 (08:01→15:15)
[2018-09-24] MEDS: Enoxaparin 30 MG/0.3 ML Syringe SUBCUT SCH (08:03)
[2018-09-24] MEDS: Multivitamin Tab PO SCH ×2 (08:05→20:09)
[2018-09-24] MEDS: Aspirin 81 MG Tab.EC PO SCH (08:05)
[2018-09-24] MEDS: Potassium Chloride 10 MEQ Tab.ER PO SCH ×2 (08:05→17:20)
[2018-09-24] MEDS: Iron Polysaccharides Complex 150 MG Cap PO SCH (08:06)
[2018-09-24] MEDS: [UNRECOGNIZED DRUG - OTHER] PO SCH ×2 (08:06→20:09)
[2018-09-24] MEDS: Fluticasone Propionate Nasal Spray 16 GM Bottle NASBOTH SCH (08:06)
[2018-09-24] MEDS: CHOLESTYRAMINE PO SCH ×2 (08:06→20:09)
[2018-09-24] MEDS: Rifampin 300 MG Cap PO SCH ×2 (08:07→20:09)
[2018-09-24] MEDS: Nystatin Topical Powder 15 GM Bottle TOP PRN (09:54)
[2018-09-24] MEDS: Acetaminophen 325 MG Tab PO PRN (10:15)
[2018-09-25] MEDS: ceFAZolin 2 GM in Sodium Chloride 0.9% 50 ML IV SCH ×4 (01:14→23:58)
[2018-09-25] MEDS: Levothyroxine 125 MCG Tab PO SCH (06:16)
[2018-09-25] MEDS: CHOLESTYRAMINE PO SCH ×2 (08:13→19:59)
[2018-09-25] MEDS: Rifampin 300 MG Cap PO SCH ×2 (08:13→20:02)
[2018-09-25] MEDS: [UNRECOGNIZED DRUG - OTHER] PO SCH ×2 (08:13→19:59)
[2018-09-25] MEDS: Fluticasone Propionate Nasal Spray 16 GM Bottle NASBOTH SCH (08:15)
[2018-09-25] MEDS: Nystatin Topical Powder 15 GM Bottle TOP PRN (08:15)
[2018-09-25] MEDS: Insulin Glarg,Human.Rec.Analog 100 UNIT/ML ML SUBCUT SCH (09:02)
[2018-09-25] MEDS: Enoxaparin 30 MG/0.3 ML Syringe SUBCUT SCH (09:02)
[2018-09-25] MEDS: Potassium Chloride 10 MEQ Tab.ER PO SCH ×2 (09:07→17:29)
[2018-09-25] MEDS: Multivitamin Tab PO SCH ×2 (09:07→20:02)
[2018-09-25] MEDS: Aspirin 81 MG Tab.EC PO SCH (09:08)
[2018-09-25] MEDS: Iron Polysaccharides Complex 150 MG Cap PO SCH (09:08)
[2018-09-25] MEDS: guaiFENesin 200 MG Tab PO SCH ×2 (14:50→20:02)
[2018-09-26] MEDS: Levothyroxine 125 MCG Tab PO SCH (06:18)
[2018-09-26] MEDS: ceFAZolin 2 GM in Sodium Chloride 0.9% 50 ML IV SCH ×2 (07:52→16:07)
[2018-09-26] MEDS: guaiFENesin 200 MG Tab PO SCH ×3 (07:53→20:19)
[2018-09-26] MEDS: Aspirin 81 MG Tab.EC PO SCH (07:53)
[2018-09-26] MEDS: Iron Polysaccharides Complex 150 MG Cap PO SCH (07:53)
[2018-09-26] MEDS: Potassium Chloride 10 MEQ Tab.ER PO SCH ×2 (07:53→17:25)
[2018-09-26] MEDS: Multivitamin Tab PO SCH ×2 (07:53→20:16)
[2018-09-26] MEDS: Enoxaparin 30 MG/0.3 ML Syringe SUBCUT SCH (07:54)
[2018-09-26] MEDS: CHOLESTYRAMINE PO SCH ×2 (07:55→20:16)
[2018-09-26] MEDS: Fluticasone Propionate Nasal Spray 16 GM Bottle NASBOTH SCH (07:55)
[2018-09-26] MEDS: [UNRECOGNIZED DRUG - OTHER] PO SCH ×2 (07:55→20:16)
[2018-09-26] MEDS: Rifampin 300 MG Cap PO SCH ×2 (07:58→20:17)
[2018-09-26] MEDS: Insulin Glarg,Human.Rec.Analog 100 UNIT/ML ML SUBCUT SCH (08:07)
[2018-09-27] MEDS: ceFAZolin 2 GM in Sodium Chloride 0.9% 50 ML IV SCH ×4 (00:07→23:17)
[2018-09-27] MEDS: Levothyroxine 125 MCG Tab PO SCH (06:18)
[2018-09-27] MEDS: guaiFENesin 200 MG Tab PO SCH ×3 (07:59→19:11)
[2018-09-27] MEDS: Iron Polysaccharides Complex 150 MG Cap PO SCH (08:00)
[2018-09-27] MEDS: Aspirin 81 MG Tab.EC PO SCH (08:00)
[2018-09-27] MEDS: Potassium Chloride 10 MEQ Tab.ER PO SCH ×2 (08:00→18:17)
[2018-09-27] MEDS: Multivitamin Tab PO SCH ×2 (08:00→19:12)
[2018-09-27] MEDS: Insulin Glarg,Human.Rec.Analog 100 UNIT/ML ML SUBCUT SCH (08:05)
[2018-09-27] MEDS: Fluticasone Propionate Nasal Spray 16 GM Bottle NASBOTH SCH (08:05)
[2018-09-27] MEDS: Enoxaparin 30 MG/0.3 ML Syringe SUBCUT SCH (08:06)
[2018-09-27] MEDS: CHOLESTYRAMINE PO SCH ×2 (08:08→19:10)
[2018-09-27] MEDS: [UNRECOGNIZED DRUG - OTHER] PO SCH ×2 (08:08→19:10)
[2018-09-27] MEDS: Rifampin 300 MG Cap PO SCH ×2 (08:08→19:12)
[2018-09-28] MEDS: Levothyroxine 125 MCG Tab PO SCH (06:20)
[2018-09-28] MEDS: [UNRECOGNIZED DRUG - OTHER] PO SCH ×2 (08:40→19:33)
[2018-09-28] MEDS: CHOLESTYRAMINE PO SCH ×2 (08:40→19:33)
[2018-09-28] MEDS: Insulin Glarg,Human.Rec.Analog 100 UNIT/ML ML SUBCUT SCH (08:40)
[2018-09-28] MEDS: Enoxaparin 30 MG/0.3 ML Syringe SUBCUT SCH (08:41)
[2018-09-28] MEDS: Aspirin 81 MG Tab.EC PO SCH (08:42)
[2018-09-28] MEDS: Rifampin 300 MG Cap PO SCH ×2 (08:42→19:32)
[2018-09-28] MEDS: Potassium Chloride 10 MEQ Tab.ER PO SCH ×2 (08:42→18:01)
[2018-09-28] MEDS: guaiFENesin 200 MG Tab PO SCH ×3 (08:42→19:31)
[2018-09-28] MEDS: Multivitamin Tab PO SCH ×2 (08:42→19:31)
[2018-09-28] MEDS: Iron Polysaccharides Complex 150 MG Cap PO SCH (08:42)
[2018-09-28] MEDS: ceFAZolin 2 GM in Sodium Chloride 0.9% 50 ML IV SCH ×3 (08:44→23:12)
[2018-09-28] MEDS: Fluticasone Propionate Nasal Spray 16 GM Bottle NASBOTH SCH (08:45)
[2018-09-28] MEDS: Acetaminophen 325 MG Tab PO PRN (23:11)
[2018-09-29] MEDS: Levothyroxine 125 MCG Tab PO SCH (06:18)
[2018-09-29] MEDS: guaiFENesin 200 MG Tab PO SCH ×3 (08:08→19:54)
[2018-09-29] MEDS: Multivitamin Tab PO SCH ×2 (08:08→19:54)
[2018-09-29] MEDS: Iron Polysaccharides Complex 150 MG Cap PO SCH (08:08)
[2018-09-29] MEDS: Aspirin 81 MG Tab.EC PO SCH (08:09)
[2018-09-29] MEDS: Potassium Chloride 10 MEQ Tab.ER PO SCH ×2 (08:09→17:28)
[2018-09-29] MEDS: Enoxaparin 30 MG/0.3 ML Syringe SUBCUT SCH (08:10)
[2018-09-29] MEDS: Fluticasone Propionate Nasal Spray 16 GM Bottle NASBOTH SCH (08:11)
[2018-09-29] MEDS: [UNRECOGNIZED DRUG - OTHER] PO SCH ×2 (08:11→19:55)
[2018-09-29] MEDS: CHOLESTYRAMINE PO SCH ×2 (08:11→19:55)
[2018-09-29] MEDS: Rifampin 300 MG Cap PO SCH ×2 (08:13→19:55)
[2018-09-29] MEDS: Insulin Glarg,Human.Rec.Analog 100 UNIT/ML ML SUBCUT SCH (08:19)
[2018-09-29] MEDS: ceFAZolin 2 GM in Sodium Chloride 0.9% 50 ML IV SCH ×3 (08:30→23:04)
[2018-09-29] MEDS: Acetaminophen 325 MG Tab PO PRN (08:49)
[2018-09-30] MEDS: Levothyroxine 125 MCG Tab PO SCH (06:24)
[2018-09-30] MEDS: ceFAZolin 2 GM in Sodium Chloride 0.9% 50 ML IV SCH ×3 (07:49→23:02)
[2018-09-30] MEDS: Fluticasone Propionate Nasal Spray 16 GM Bottle NASBOTH SCH (07:54)
[2018-09-30] MEDS: Rifampin 300 MG Cap PO SCH ×2 (07:55→19:45)
[2018-09-30] MEDS: Iron Polysaccharides Complex 150 MG Cap PO SCH (07:55)
[2018-09-30] MEDS: Multivitamin Tab PO SCH ×2 (07:55→19:45)
[2018-09-30] MEDS: guaiFENesin 200 MG Tab PO SCH ×3 (07:56→19:45)
[2018-09-30] MEDS: Potassium Chloride 10 MEQ Tab.ER PO SCH ×2 (07:56→17:20)
[2018-09-30] MEDS: Aspirin 81 MG Tab.EC PO SCH (07:56)
[2018-09-30] MEDS: CHOLESTYRAMINE PO SCH ×2 (07:57→19:45)
[2018-09-30] MEDS: [UNRECOGNIZED DRUG - OTHER] PO SCH ×2 (07:57→19:45)
[2018-09-30] MEDS: Enoxaparin 30 MG/0.3 ML Syringe SUBCUT SCH (07:57)
[2018-09-30] MEDS: Insulin Glarg,Human.Rec.Analog 100 UNIT/ML ML SUBCUT SCH (08:01)
[2018-09-30] MEDS: Acetaminophen 325 MG Tab PO PRN (08:08)
[2018-09-30] MEDS: CARBOXYMETHYLCELLULOSE SODIUM EYEBOTH PRN (16:38)
[2018-10-01] MEDS: Levothyroxine 125 MCG Tab PO SCH (07:01)
[2018-10-01] MEDS: ceFAZolin 2 GM in Sodium Chloride 0.9% 50 ML IV SCH ×3 (07:58→23:07)
[2018-10-01] MEDS: Enoxaparin 30 MG/0.3 ML Syringe SUBCUT SCH (07:59)
[2018-10-01] MEDS: Multivitamin Tab PO SCH ×2 (08:00→20:33)
[2018-10-01] MEDS: Iron Polysaccharides Complex 150 MG Cap PO SCH (08:00)
[2018-10-01] MEDS: guaiFENesin 200 MG Tab PO SCH ×3 (08:00→20:33)
[2018-10-01] MEDS: Aspirin 81 MG Tab.EC PO SCH (08:00)
[2018-10-01] MEDS: Potassium Chloride 10 MEQ Tab.ER PO SCH ×2 (08:00→17:12)
[2018-10-01] MEDS: CHOLESTYRAMINE PO SCH ×2 (08:02→20:34)
[2018-10-01] MEDS: Rifampin 300 MG Cap PO SCH ×2 (08:02→20:33)
[2018-10-01] MEDS: [UNRECOGNIZED DRUG - OTHER] PO SCH ×2 (08:02→20:34)
[2018-10-01] MEDS: Fluticasone Propionate Nasal Spray 16 GM Bottle NASBOTH SCH (08:02)
[2018-10-01] MEDS: Insulin Glarg,Human.Rec.Analog 100 UNIT/ML ML SUBCUT SCH (08:23)
[2018-10-01] MEDS: Acetaminophen 325 MG Tab PO PRN (10:14)
[2018-10-02] MEDS: Levothyroxine 125 MCG Tab PO SCH (06:09)
[2018-10-02] MEDS: Insulin Glarg,Human.Rec.Analog 100 UNIT/ML ML SUBCUT SCH (08:06)
[2018-10-02] MEDS: Enoxaparin 30 MG/0.3 ML Syringe SUBCUT SCH (08:08)
[2018-10-02] MEDS: ceFAZolin 2 GM in Sodium Chloride 0.9% 50 ML IV SCH ×3 (08:10→23:15)
[2018-10-02] MEDS: [UNRECOGNIZED DRUG - OTHER] PO SCH ×2 (08:15→19:38)
[2018-10-02] MEDS: guaiFENesin 200 MG Tab PO SCH ×3 (08:15→19:40)
[2018-10-02] MEDS: Potassium Chloride 10 MEQ Tab.ER PO SCH ×2 (08:15→17:35)
[2018-10-02] MEDS: Rifampin 300 MG Cap PO SCH ×2 (08:15→19:40)
[2018-10-02] MEDS: CHOLESTYRAMINE PO SCH ×2 (08:15→19:38)
[2018-10-02] MEDS: Aspirin 81 MG Tab.EC PO SCH (08:15)
[2018-10-02] MEDS: Iron Polysaccharides Complex 150 MG Cap PO SCH (08:15)
[2018-10-02] MEDS: Multivitamin Tab PO SCH ×2 (08:15→19:40)
[2018-10-02] MEDS: Fluticasone Propionate Nasal Spray 16 GM Bottle NASBOTH SCH (08:18)
[2018-10-02] MEDS: CARBOXYMETHYLCELLULOSE SODIUM EYEBOTH PRN (18:41)
[2018-10-03] MEDS: Levothyroxine 125 MCG Tab PO SCH (06:39)
[2018-10-03] MEDS: Potassium Chloride 10 MEQ Tab.ER PO SCH ×2 (08:05→17:40)
[2018-10-03] MEDS: Multivitamin Tab PO SCH ×2 (08:05→19:37)
[2018-10-03] MEDS: guaiFENesin 200 MG Tab PO SCH ×3 (08:05→19:37)
[2018-10-03] MEDS: Aspirin 81 MG Tab.EC PO SCH (08:05)
[2018-10-03] MEDS: Iron Polysaccharides Complex 150 MG Cap PO SCH (08:06)
[2018-10-03] MEDS: ceFAZolin 2 GM in Sodium Chloride 0.9% 50 ML IV SCH ×3 (08:06→23:27)
[2018-10-03] MEDS: [UNRECOGNIZED DRUG - OTHER] PO SCH ×2 (08:07→19:40)
[2018-10-03] MEDS: Fluticasone Propionate Nasal Spray 16 GM Bottle NASBOTH SCH (08:07)
[2018-10-03] MEDS: Rifampin 300 MG Cap PO SCH ×2 (08:07→19:38)
[2018-10-03] MEDS: CHOLESTYRAMINE PO SCH ×2 (08:07→19:40)
[2018-10-03] MEDS: Enoxaparin 30 MG/0.3 ML Syringe SUBCUT SCH (08:08)
[2018-10-03] MEDS: Insulin Glarg,Human.Rec.Analog 100 UNIT/ML ML SUBCUT SCH (08:10)
[2018-10-04] MEDS: Levothyroxine 125 MCG Tab PO SCH (06:47)
[2018-10-04] MEDS: ceFAZolin 2 GM in Sodium Chloride 0.9% 50 ML IV SCH ×3 (07:50→23:21)
[2018-10-04] MEDS: Rifampin 300 MG Cap PO SCH ×2 (07:51→19:26)
[2018-10-04] MEDS: Enoxaparin 30 MG/0.3 ML Syringe SUBCUT SCH (07:51)
[2018-10-04] MEDS: [UNRECOGNIZED DRUG - OTHER] PO SCH ×3 (07:52→19:30)
[2018-10-04] MEDS: CHOLESTYRAMINE PO SCH ×3 (07:52→19:30)
[2018-10-04] MEDS: Fluticasone Propionate Nasal Spray 16 GM Bottle NASBOTH SCH (07:53)
[2018-10-04] MEDS: Multivitamin Tab PO SCH ×2 (07:59→19:26)
[2018-10-04] MEDS: guaiFENesin 200 MG Tab PO SCH ×3 (07:59→19:26)
[2018-10-04] MEDS: Aspirin 81 MG Tab.EC PO SCH (07:59)
[2018-10-04] MEDS: Iron Polysaccharides Complex 150 MG Cap PO SCH (07:59)
[2018-10-04] MEDS: Potassium Chloride 10 MEQ Tab.ER PO SCH ×2 (07:59→17:43)
[2018-10-04] MEDS: Insulin Glarg,Human.Rec.Analog 100 UNIT/ML ML SUBCUT SCH (08:50)
[2018-10-05] MEDS: Levothyroxine 125 MCG Tab PO SCH (06:41)
[2018-10-05] MEDS: Rifampin 300 MG Cap PO SCH ×2 (07:53→19:33)
[2018-10-05] MEDS: Enoxaparin 30 MG/0.3 ML Syringe SUBCUT SCH (07:53)
[2018-10-05] MEDS: Multivitamin Tab PO SCH ×2 (07:53→19:33)
[2018-10-05] MEDS: guaiFENesin 200 MG Tab PO SCH ×3 (07:53→19:34)
[2018-10-05] MEDS: Iron Polysaccharides Complex 150 MG Cap PO SCH (07:53)
[2018-10-05] MEDS: Aspirin 81 MG Tab.EC PO SCH (07:53)
[2018-10-05] MEDS: Potassium Chloride 10 MEQ Tab.ER PO SCH ×2 (07:53→17:24)
[2018-10-05] MEDS: [UNRECOGNIZED DRUG - OTHER] PO SCH ×3 (07:54→19:47)
[2018-10-05] MEDS: CHOLESTYRAMINE PO SCH ×3 (07:54→19:47)
[2018-10-05] MEDS: Fluticasone Propionate Nasal Spray 16 GM Bottle NASBOTH SCH (07:54)
[2018-10-05] MEDS: ceFAZolin 2 GM in Sodium Chloride 0.9% 50 ML IV SCH ×3 (07:55→23:27)
[2018-10-05] MEDS: Insulin Glarg,Human.Rec.Analog 100 UNIT/ML ML SUBCUT SCH (07:59)
[2018-10-06] MEDS: Levothyroxine 125 MCG Tab PO SCH (06:32)
[2018-10-06] MEDS: Aspirin 81 MG Tab.EC PO SCH (08:03)
[2018-10-06] MEDS: Potassium Chloride 10 MEQ Tab.ER PO SCH ×2 (08:03→17:04)
[2018-10-06] MEDS: Multivitamin Tab PO SCH ×2 (08:03→19:35)
[2018-10-06] MEDS: guaiFENesin 200 MG Tab PO SCH ×3 (08:03→19:35)
[2018-10-06] MEDS: Iron Polysaccharides Complex 150 MG Cap PO SCH (08:04)
[2018-10-06] MEDS: Rifampin 300 MG Cap PO SCH ×2 (08:04→19:35)
[2018-10-06] MEDS: Enoxaparin 30 MG/0.3 ML Syringe SUBCUT SCH (08:04)
[2018-10-06] MEDS: CARBOXYMETHYLCELLULOSE SODIUM EYEBOTH PRN (08:05)
[2018-10-06] MEDS: CHOLESTYRAMINE PO SCH ×3 (08:05→19:38)
[2018-10-06] MEDS: [UNRECOGNIZED DRUG - OTHER] PO SCH ×3 (08:05→19:38)
[2018-10-06] MEDS: Fluticasone Propionate Nasal Spray 16 GM Bottle NASBOTH SCH (08:05)
[2018-10-06] MEDS: Insulin Glarg,Human.Rec.Analog 100 UNIT/ML ML SUBCUT SCH (08:11)
[2018-10-06] MEDS: ceFAZolin 2 GM in Sodium Chloride 0.9% 50 ML IV SCH ×2 (09:10→15:14)
[2018-10-07] MEDS: ceFAZolin 2 GM in Sodium Chloride 0.9% 50 ML IV SCH ×3 (00:17→15:28)
[2018-10-07] MEDS: Levothyroxine 125 MCG Tab PO SCH (06:34)
[2018-10-07] MEDS: Enoxaparin 30 MG/0.3 ML Syringe SUBCUT SCH (07:51)
[2018-10-07] MEDS: Insulin Glarg,Human.Rec.Analog 100 UNIT/ML ML SUBCUT SCH (08:02)
[2018-10-07] MEDS: Iron Polysaccharides Complex 150 MG Cap PO SCH (08:04)
[2018-10-07] MEDS: Multivitamin Tab PO SCH ×2 (08:04→19:34)
[2018-10-07] MEDS: guaiFENesin 200 MG Tab PO SCH ×3 (08:04→19:34)
[2018-10-07] MEDS: Acetaminophen 325 MG Tab PO PRN (08:04)
[2018-10-07] MEDS: Potassium Chloride 10 MEQ Tab.ER PO SCH ×2 (08:04→17:24)
[2018-10-07] MEDS: Aspirin 81 MG Tab.EC PO SCH (08:04)
[2018-10-07] MEDS: Rifampin 300 MG Cap PO SCH ×2 (08:05→19:34)
[2018-10-07] MEDS: Fluticasone Propionate Nasal Spray 16 GM Bottle NASBOTH SCH (08:06)
[2018-10-07] MEDS: [UNRECOGNIZED DRUG - OTHER] PO SCH ×2 (08:08→19:34)
[2018-10-07] MEDS: CHOLESTYRAMINE PO SCH ×2 (08:08→19:34)
[2018-10-08] MEDS: ceFAZolin 2 GM in Sodium Chloride 0.9% 50 ML IV SCH ×3 (00:07→15:02)
[2018-10-08] MEDS: Levothyroxine 125 MCG Tab PO SCH (06:48)
[2018-10-08] MEDS: CARBOXYMETHYLCELLULOSE SODIUM EYEBOTH PRN (08:09)
[2018-10-08] MEDS: [UNRECOGNIZED DRUG - OTHER] PO SCH ×2 (08:09→19:50)
[2018-10-08] MEDS: CHOLESTYRAMINE PO SCH ×2 (08:09→19:50)
[2018-10-08] MEDS: Enoxaparin 30 MG/0.3 ML Syringe SUBCUT SCH (08:10)
[2018-10-08] MEDS: Fluticasone Propionate Nasal Spray 16 GM Bottle NASBOTH SCH (08:10)
[2018-10-08] MEDS: Insulin Glarg,Human.Rec.Analog 100 UNIT/ML ML SUBCUT SCH (08:11)
[2018-10-08] MEDS: Potassium Chloride 10 MEQ Tab.ER PO SCH ×2 (08:11→17:24)
[2018-10-08] MEDS: Aspirin 81 MG Tab.EC PO SCH (08:11)
[2018-10-08] MEDS: guaiFENesin 200 MG Tab PO SCH ×3 (08:11→19:50)
[2018-10-08] MEDS: Iron Polysaccharides Complex 150 MG Cap PO SCH (08:11)
[2018-10-08] MEDS: Multivitamin Tab PO SCH ×2 (08:11→19:50)
[2018-10-08] MEDS: Rifampin 300 MG Cap PO SCH ×2 (08:13→19:50)
[2018-10-09] MEDS: ceFAZolin 2 GM in Sodium Chloride 0.9% 50 ML IV SCH ×3 (00:01→15:17)
[2018-10-09] MEDS: Levothyroxine 125 MCG Tab PO SCH (06:38)
[2018-10-09] MEDS: CARBOXYMETHYLCELLULOSE SODIUM EYEBOTH PRN (08:30)
[2018-10-09] MEDS: Insulin Glarg,Human.Rec.Analog 100 UNIT/ML ML SUBCUT SCH (08:30)
[2018-10-09] MEDS: Fluticasone Propionate Nasal Spray 16 GM Bottle NASBOTH SCH (08:30)
[2018-10-09] MEDS: Aspirin 81 MG Tab.EC PO SCH (08:31)
[2018-10-09] MEDS: Enoxaparin 30 MG/0.3 ML Syringe SUBCUT SCH (08:31)
[2018-10-09] MEDS: guaiFENesin 200 MG Tab PO SCH ×3 (08:31→20:44)
[2018-10-09] MEDS: Potassium Chloride 10 MEQ Tab.ER PO SCH ×2 (08:31→16:59)
[2018-10-09] MEDS: Iron Polysaccharides Complex 150 MG Cap PO SCH (08:31)
[2018-10-09] MEDS: Multivitamin Tab PO SCH ×2 (08:32→20:45)
[2018-10-09] MEDS: [UNRECOGNIZED DRUG - OTHER] PO SCH ×2 (08:33→20:44)
[2018-10-09] MEDS: Rifampin 300 MG Cap PO SCH ×2 (08:33→20:44)
[2018-10-09] MEDS: CHOLESTYRAMINE PO SCH ×2 (08:33→20:44)
[2018-10-09] MEDS ORDERED: ceFAZolin 1 GM Vial IV ONE ×2 (14:41)
[2018-10-09] MEDS ORDERED: Enoxaparin 30 MG/0.3 ML Syringe SUBCUT ONE (14:41)
[2018-10-09] MEDS ORDERED: Iron Polysaccharides Complex 150 MG Cap PO ONE (14:41)
[2018-10-09] MEDS ORDERED: Potassium Chloride 10 MEQ Tab.ER PO ONE (14:41)
[2018-10-09] MEDS ORDERED: Levothyroxine 125 MCG Tab PO ONE (14:41)
[2018-10-10] MEDS: ceFAZolin 2 GM in Sodium Chloride 0.9% 50 ML IV SCH ×3 (00:12→15:39)
[2018-10-10] MEDS: Acetaminophen 325 MG Tab PO PRN (02:40)
[2018-10-10] MEDS: Levothyroxine 125 MCG Tab PO SCH (06:47)
[2018-10-10] MEDS: Aspirin 81 MG Tab.EC PO SCH (07:20)
[2018-10-10] MEDS: Rifampin 300 MG Cap PO SCH ×2 (07:20→20:12)
[2018-10-10] MEDS: Multivitamin Tab PO SCH ×2 (07:20→20:12)
[2018-10-10] MEDS: Potassium Chloride 10 MEQ Tab.ER PO SCH ×2 (07:20→17:12)
[2018-10-10] MEDS: guaiFENesin 200 MG Tab PO SCH ×3 (07:20→20:12)
[2018-10-10] MEDS: Fluticasone Propionate Nasal Spray 16 GM Bottle NASBOTH SCH (07:21)
[2018-10-10] MEDS: Enoxaparin 30 MG/0.3 ML Syringe SUBCUT SCH (07:21)
[2018-10-10] MEDS: [UNRECOGNIZED DRUG - OTHER] PO SCH ×2 (07:26→20:12)
[2018-10-10] MEDS: CHOLESTYRAMINE PO SCH ×2 (07:26→20:12)
[2018-10-10] MEDS: Insulin Glarg,Human.Rec.Analog 100 UNIT/ML ML SUBCUT SCH (07:33)
[2018-10-10] MEDS: Iron Polysaccharides Complex 150 MG Cap PO SCH (09:01)
[2018-10-11] MEDS: Levothyroxine 125 MCG Tab PO SCH (06:08)
[2018-10-11] MEDS: Multivitamin Tab PO SCH (07:25)
[2018-10-11] MEDS: Insulin Glarg,Human.Rec.Analog 100 UNIT/ML ML SUBCUT SCH (07:25)
[2018-10-11] MEDS: Fluticasone Propionate Nasal Spray 16 GM Bottle NASBOTH SCH (07:25)
[2018-10-11] MEDS: Rifampin 300 MG Cap PO SCH (07:25)
[2018-10-11] MEDS: Enoxaparin 30 MG/0.3 ML Syringe SUBCUT SCH (07:25)
[2018-10-11] MEDS: Aspirin 81 MG Tab.EC PO SCH (07:25)
[2018-10-11] MEDS: Iron Polysaccharides Complex 150 MG Cap PO SCH (07:25)
[2018-10-11] MEDS: guaiFENesin 200 MG Tab PO SCH (07:25)
[2018-10-11] MEDS: Potassium Chloride 10 MEQ Tab.ER PO SCH (07:26)
[2018-10-11] MEDS: [UNRECOGNIZED DRUG - OTHER] PO SCH (07:26)
[2018-10-11] MEDS: CHOLESTYRAMINE PO SCH (07:26)
[2018-10-11 07:36] VITALS: BP 132/69
--- NOTE | 2018-10-11 22:04 | PCM.DCSUM1 ---
Discharge Summary - Hospital Course Free Text/Narrative:: Patient admitted swing bed for strengthening with PT and IV Ancef for 5 weeks following removal of the hardware of her right knee. Was initially seen here by Sandy for increased pain and swelling of her right knee/leg. Was transferred to [place]. History of fracture with placement of hardware in 2012. Concerns for cellulitis versus deep tissue involvement. Started on Levaquin and eventually switched to Vancomycin in [place]. Ultimately, hardware had to be removed due to infection. Diagnosis: Stroke: No Modified Deneen Scale: No Symptoms at All Modified Deneen Scale Score: 0 - Discharge Data Discharge Date: 10/11/18 Discharge Disposition: Home, Self-Care 01 Condition: Good - Discharge Diagnosis/Problem(s) (1) Hardware complicating wound infection SNOMED Code(s): 887656872 ICD Code: T84.7XXA - INFECT/INFLM REACT DUE TO OTH INT ORTH PROSTH DEV/GRFT, INIT Status: Acute Priority: High Qualifiers: Encounter type: initial encounter Qualified Code(s): T84.7XXA - Infection and inflammatory reaction due to other internal orthopedic prosthetic devices, implants and grafts, initial encounter (2) Diabetes mellitus type 2 SNOMED Code(s): 52550176 ICD Code: E11.9 - TYPE 2 DIABETES MELLITUS WITHOUT COMPLICATIONS Status: Chronic Priority: Medium - Patient Summary/Data Complications: none Consults: Consultations 09/04/18 15:41 PT Evaluation and Treatment [CONS] Routine Hospital Course: Patient has completed 5 week course of Ancef. Wound is clean, dry, sutures removed. Edges well approximated. Small scab to distal portion of the wound. Is ambulating well with walker. Does still have issues at times with incontinence. Nursing assist for ADLs. Has been afebrile. Will return back to senior care with usual meds, cares. - Patient Instructions Diet: Usual Diet as Tolerated Activity: As Tolerated - Discharge Plan *PRESCRIPTION DRUG MONITORING PROGRAM REVIEWED*: No *COPY OF PRESCRIPTION DRUG MONITORING REPORT IN PATIENT NAVI: No Home Medications: Home Meds Cholestyramine (With Sugar) [Cholestyramine Powder] 1 scoop PO BID 12/01/13 [ History] Insulin Aspart [NovoLOG] 1 - 10 units SUBCUT QIDACANDBED 12/01/13 [History] Levothyroxine 125 mcg PO DAILY 12/01/13 [History] Multivitamin [Multi-Vitamin Daily] 1 each PO BID 12/01/13 [History] Aspirin 81 mg PO DAILY 03/13/15 [History] Denosumab [Prolia] 60 mg SUBCUT Q6M 03/13/15 [History] Fexofenadine/Pseudoephedrine [Tammy-D 24 Hour Tablet] 1 tab PO DAILY 06/08/16 [History] Potassium Chloride [Klor-Con 10] 10 meq PO BIDMEALS #60 tab.er 06/11/16 [Rx] Albuterol/Ipratropium [DuoNeb 3.0-0.5 MG/3 ML] 1 ampule INH QID PRN 04/26/18 [ History] Fluticasone Propionate [Flonase Allergy Relief] 2 inh NASBOTH DAILY 04/26/18 [ History] Iron Ps Cmplx/Vit B12/Fa [Poly-Iron 150 Forte] 150 mg PO DAILY 04/26/18 [History ] Carboxymethylcellulose Sodium [Refresh Tears] 1 drop EYEBOTH TID 08/22/18 [ History] Insulin Degludec [Tresiba] 10 units SQ DAILY 09/04/18 [History] Nystatin 1 applic TOP BID PRN 09/04/18 [History] Sodium Chloride [[place] Saline] 1 spray KRUPA Q12H PRN 09/04/18 [History] Referrals: Daxa Henderson PA-C [ED Midlevel Provider] - (Follow up with Daxa Henderson in 1 week) - Discharge Summary/Plan Comment DC Time >30 min.: No - General Info Date of Service: 10/11/18 Admission Dx/Problem (Free Text: Admission Diagnosis/Problem Admission Diagnosis/Problem Hardware complicating wound infection Functional Status: Reports: Pain Controlled, Tolerating Diet, Ambulating - Review of Systems General: Denies: Fever, Weakness, Fatigue, Malaise HEENT: Reports: No Symptoms Pulmonary: Reports: Cough. Denies: Shortness of Breath Cardiovascular: Denies: Chest Pain, Edema, Lightheadedness Gastrointestinal: Denies: Abdominal Pain, Nausea, Vomiting Genitourinary: Reports: Incontinence Musculoskeletal: Reports: Leg Pain Skin: Reports: Other (incision to right lateral knee) Neurological: Reports: No Symptoms Psychiatric: Reports: No Symptoms - Patient Data Vitals - Most Recent: Last Vital Signs Temp 97 F 10/11/18 07:35 Pulse 80 10/11/18 07:35 Resp 18 10/11/18 07:35 BP 132/69 10/11/18 07:35 Pulse Ox 97 10/11/18 07:35 Weight - Most Recent: 148 lb 12.8 oz Lab Results - Last 24 hrs: Laboratory Results - last 24 hr 10/10/18 10/11/18 Range/Units 20:10 07:23 POC Glucose 258 H 167 H (75-105) mg/dl Med Orders - Current: Current Medications Discontinued Medications Acetaminophen (Tylenol) 650 mg PO Q4H PRN PRN Reason: Pain Last Admin: 10/10/18 02:40 Dose: 650 mg Acetaminophen (Tylenol) Confirm Administered Dose 650 mg .ROUTE .STK-MED ONE Stop: 09/11/18 08:24 Last Admin: 09/11/18 08:24 Dose: Not Given Albuterol/Ipratropium (Duoneb 3.0-0.5 Mg/3 Ml) 3 ml INH QID PRN PRN Reason: Wheezing Aspirin (Halfprin) 81 mg PO DAILY [facility] Last Admin: 10/11/18 07:25 Dose: 81 mg Cefazolin Sodium (Ancef) 2 gm IVPUSH Q8H [facility] Last Admin: 09/04/18 16:37 Dose: Not Given Cefazolin Sodium (Ancef) 2 gm IV .STK-MED ONE Stop: 10/09/18 14:42 Cefazolin Sodium (Ancef) 2 gm IV .STK-MED ONE Stop: 10/09/18 14:42 Enoxaparin Sodium (Lovenox) 30 mg SUBCUT DAILY [facility] Last Admin: 10/11/18 07:25 Dose: 30 mg Enoxaparin Sodium (Lovenox) 30 mg SUBCUT .STK-MED ONE Stop: 10/09/18 14:42 Fluticasone Propionate (Flonase) 0 gm NASBOTH DAILY [facility] Last Admin: 10/11/18 07:25 Dose: 2 spray Guaifenesin (Organ-I Nr) 200 mg PO TID [facility] Last Admin: 10/11/18 07:25 Dose: 200 mg Heparin Sodium (Porcine) (Heparin Lock Flush 100 Units/Ml) 300 units FLUSH Q8H [facility] Last Admin: 10/10/18 15:39 Dose: 300 units Cefazolin Sodium 2 gm/ Sodium (Chloride) 50 mls @ 100 mls/hr IVPUSH Q8H [facility] Last Admin: 09/04/18 16:37 Dose: Not Given Cefazolin Sodium 2 gm/ Sodium (Chloride) 50 mls @ 100 mls/hr IV Q8H [facility] Last Admin: 09/05/18 07:45 Dose: 100 mls/hr Cefazolin Sodium 2 gm/ Sodium (Chloride) 50 mls @ 100 mls/hr IV 0000,0800,1600 [facility] Last Admin: 09/07/18 08:05 Dose: 100 mls/hr Cefazolin Sodium 2 gm/ Sodium (Chloride) 50 mls @ 100 mls/hr IV Q8H [facility] Stop: 10/10/18 18:00 Last Admin: 10/10/18 15:39 Dose: 100 mls/hr Insulin Aspart (Novolog) 0 unit SUBCUT WITHMEALSANDBED [facility]; Protocol Last Admin: 09/04/18 22:12 Dose: Not Given Insulin Aspart (Novolog) 0 unit SUBCUT WITHMEALSANDBED [facility]; Protocol Last Admin: 10/11/18 07:32 Dose: 2 units Insulin Glargine (Lantus) 10 unit SUBCUT DAILY [facility] Last Admin: 09/08/18 08:30 Dose: 10 units Insulin Glargine (Lantus) 20 unit SUBCUT DAILY [facility] Last Admin: 09/21/18 08:10 Dose: 4 units Insulin Glargine (Lantus) 25 unit SUBCUT DAILY [facility] Last Admin: 10/11/18 07:25 Dose: 25 unit Levothyroxine Sodium (Levothyroxine) 125 mcg PO 0700 [facility] Last Admin: 09/07/18 06:40 Dose: 125 mcg Levothyroxine Sodium (Levothyroxine) 125 mcg PO ACBREAKFAST [facility] Last Admin: 10/11/18 06:08 Dose: 125 mcg Levothyroxine Sodium (Levothyroxine) 125 mcg PO .STK-MED ONE Stop: 10/09/18 14:42 Multi-Ingred Cream/Lotion/Oil/Oint (Zinc Oxide) 0 gm TOP Q1H PRN PRN Reason: skin breakdown Multivitamins/Minerals/Vitamin C (Tab-A-Snow) 1 tab PO BID [facility] Last Admin: 10/11/18 07:25 Dose: 1 tab Ptom Carboxymethylcellulo se Sodium [Refresh Tears] 1 Drop 1 drop EYEBOTH TID [facility] Ptom Cholestyramine (With Sugar) 1 Scoop 1 scoop PO BID [facility] Last Admin: 10/11/18 07:26 Dose: 1 scoop Carboxymethylcellulo se Sodium [Refresh Tears] 1 Drop 1 drop EYEBOTH TID PRN PRN Reason: Dry Eyes Last Admin: 10/09/18 08:30 Dose: 1 drop Nystatin (Nystop) 0 gm TOP BID PRN PRN Reason: Wound Care Last Admin: 09/25/18 08:15 Dose: 1 applic Polysaccharide Iron Complex (Ferrex 150) 150 mg PO DAILY [facility] Last Admin: 10/11/18 07:25 Dose: 150 mg Polysaccharide Iron Complex (Ferrex 150) 150 mg PO .STK-MED ONE Stop: 10/09/18 14:42 Potassium Chloride (Klor-Con 10) 10 meq PO BIDMEALS [facility] Last Admin: 10/11/18 07:26 Dose: 10 meq Potassium Chloride (Klor-Con 10) 10 meq PO .STK-MED ONE Stop: 10/09/18 14:42 Rifampin (Rifampin) 300 mg PO BID [facility] Last Admin: 10/11/18 07:25 Dose: 300 mg Sodium Chloride ([place] Nasal [place]) 0 ml KRUPA Q12H PRN PRN Reason: Nasal Dryness - Exam General: Reports: Alert, Cooperative HEENT: Reports: Mucous Membr. Moist/[place]ck: Reports: Supple Lungs: Reports: Clear to Auscultation, Normal Respiratory Effort Cardiovascular: Reports: Regular Rate, Regular Rhythm GI/Abdominal Exam: Normal Bowel Sounds, Soft, Non-Tender Extremities: Normal Inspection, No Pedal Edema Skin: Reports: Warm, Dry Wound/Incisions: Reports: Healing Well, No Drainage Neurological: Reports: No New Focal Deficit
== END 2018-10-11 10:55 | disposition home or self-care (01) | DRG 561 ==
LOC: UNDOADMIN 14:35 → CC.MS 14:35
PROVIDERS: ADMIT Family Medicine; ATTEND Family Medicine
PROC: F07Z9ZZ Gait Training/Functional Ambulation Treatment (ICD-10-PCS; principal; 2018-09-05)
PROC: F07M6ZZ Therapeutic Exercise Treatment of Musculoskeletal System - Whole Body (ICD-10-PCS; 2018-09-05)
DX: T84.7XXA Infection and inflammatory reaction due to other internal orthopedic prosthetic devices, implants and grafts, initial encounter (principal); J30.9 Allergic rhinitis, unspecified; E78.00 Pure hypercholesterolemia, unspecified; I11.0 Hypertensive heart disease with heart failure; M81.0 Age-related osteoporosis without current pathological fracture; R62.50 Unspecified lack of expected normal physiological development in childhood; E03.9 Hypothyroidism, unspecified; E11.9 Type 2 diabetes mellitus without complications; K21.9 Gastro-esophageal reflux disease without esophagitis; M19.91 Primary osteoarthritis, unspecified site; Y83.8 Other surgical procedures as the cause of abnormal reaction of the patient, or of later complication, without mention of misadventure at the time of the procedure; Z88.0 Allergy status to penicillin; Z88.1 Allergy status to other antibiotic agents; Z88.8 Allergy status to other drugs, medicaments and biological substances; Z79.4 Long term (current) use of insulin; Z86.73 Personal history of transient ischemic attack (TIA), and cerebral infarction without residual deficits; Z79.82 Long term (current) use of aspirin; Z79.899 Other long term (current) drug therapy
CPT/HCPCS: 36415; 71046; 80053; 82962; 83880; 85025; 85651; 86140; 97110-GP; 97161-GP; A9270-GY; J0690; J1642; J1650; J7050

== ENCOUNTER 2019-04-21 13:08 | Emergency (ER) | payer MEDICARE, MEDICAID ==
--- NOTE | 2019-04-21 13:55 | EDM.PDOC ---
ED HPI GENERAL MEDICAL PROBLEM - General Chief Complaint: Lower Extremity Injury/Pain Stated Complaint: "Broken toe" Time Seen by Provider: 04/21/19 13:54 Source of Information: Reports: Patient History Limitations: Reports: No Limitations - History of Present Illness INITIAL COMMENTS - FREE TEXT/NARRATIVE: This patient is a 63 year old that presents in wheelchair to ER. Patient brought by a mounter. [employer] reports patient has complained of left leg and foot pain since tuesday. They report noticed bruising of the left greater toe today. Do not recall seeing injury take place. Onset Date: 04/18/19 Duration: Day(s): (3) Location: Reports: Lower Extremity, Left Quality: Reports: Ache Severity: Mild Improves with: Reports: Immobilization Worsens with: Reports: Movement Associated Symptoms: Reports: No Other Symptoms - Related Data Allergies Allergy/AdvReac Type Severity Reaction Status Date / Time boric acid Allergy Cannot Verified 08/22/18 12:30 Remember cephalexin monohydrate Allergy Cannot Verified 09/04/18 11:59 [From Keflex] Remember clindamycin Allergy Cannot Verified 09/04/18 11:59 Remember erythromycin base Allergy Cannot Verified 09/04/18 11:59 [Erythromycin Base] Remember folic acid Allergy Other Verified 09/04/18 11:59 ibuprofen Allergy Cannot Verified 09/04/18 11:59 Remember magnesium hydroxide Allergy Cannot Verified 09/04/18 11:59 [From Milk of Magnesia] Remember magnesium hydroxide Allergy Cannot Verified 09/04/18 11:59 [From Milk of Magnesia] Remember Penicillins Allergy Cannot Verified 09/04/18 11:59 Remember sulfamethoxazole Allergy Cannot Verified 09/04/18 11:59 [From Bactrim] Remember trimethoprim [From Bactrim] Allergy Cannot Verified 09/04/18 11:59 Remember Home Meds: Home Meds Cholestyramine (With Sugar) [Cholestyramine Powder] 1 scoop PO BID 12/01/13 [ History] Insulin Aspart [NovoLOG] 1 - 10 units SUBCUT QIDACANDBED 12/01/13 [History] Levothyroxine 125 mcg PO DAILY 12/01/13 [History] Multivitamin [Multi-Vitamin Daily] 1 each PO BID 12/01/13 [History] Aspirin 81 mg PO DAILY 03/13/15 [History] Denosumab [Prolia] 60 mg SUBCUT Q6M 03/13/15 [History] Fexofenadine/Pseudoephedrine [Tammy-D 24 Hour Tablet] 1 tab PO DAILY 06/08/16 [History] Potassium Chloride [Klor-Con 10] 10 meq PO BIDMEALS #60 tab.er 06/11/16 [Rx] Albuterol/Ipratropium [DuoNeb 3.0-0.5 MG/3 ML] 1 ampule INH QID PRN 04/26/18 [ History] Fluticasone Propionate [Flonase Allergy Relief] 2 inh NASBOTH DAILY 04/26/18 [ History] Iron Ps Cmplx/Vit B12/Fa [Poly-Iron 150 Forte] 150 mg PO DAILY 04/26/18 [History ] Carboxymethylcellulose Sodium [Refresh Tears] 1 drop EYEBOTH TID 08/22/18 [ History] Insulin Degludec [Tresiba] 10 units SQ DAILY 09/04/18 [History] Nystatin 1 applic TOP BID PRN 09/04/18 [History] Sodium Chloride [[place] Saline] 1 spray KRUPA Q12H PRN 09/04/18 [History] Past Medical History HEENT History: Reports: Allergic Rhinitis, Other (See Below) Other HEENT History: dry eyes Cardiovascular History: Reports: Heart Failure, High Cholesterol, Hypertension, Other (See Below) Other Cardiovascular History: CVA Gastrointestinal History: Reports: Chronic Diarrhea, GERD Other Gastrointestinal History: reflux Genitourinary History: Reports: Other (See Below) Other Genitourinary History: yeast infections Musculoskeletal History: Reports: Osteoarthritis, Osteoporosis Other Musculoskeletal History: tibial plateau fracture in May 2014. Surgical repair by Dr. Macedo at [facility]. Patient resumed weight bearing with ambultation November 2013. 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 Hematologic History: Reports: Anemia Dermatologic History: Reports: Cellulitis - Infectious Disease History Infectious Disease History: Reports: C-Difficile, Hepatitis B, MRSA - Past Surgical History HEENT Surgical History: Reports: Adenoidectomy, Tonsillectomy Cardiovascular Surgical History: Reports: Other (See Below) Other Musculoskeletal Surgeries/Procedures:: Tib Fib repair to right leg Social & Family History - Tobacco Use Smoking Status *Q: Never Smoker Second Hand Smoke Exposure: No - Caffeine Use Caffeine Use: Reports: None Review of Systems - Review of Systems Review Of Systems: See Below Constitutional: Reports: No Symptoms Eyes: Reports: No Symptoms Ears: Reports: No Symptoms Nose: Reports: No Symptoms Respiratory: Reports: No Symptoms Cardiovascular: Reports: No Symptoms Musculoskeletal: Reports: Foot Pain (left) Skin: Reports: No Symptoms Neurological: Reports: No Symptoms ED EXAM, GENERAL - Physical Exam Exam: See Below Exam Limited By: No Limitations General Appearance: Alert, WD/WN, No Apparent Distress Respiratory/Chest: No Respiratory Distress, Lungs Clear, Normal Breath Sounds, No Accessory Muscle Use Cardiovascular: Normal Peripheral Pulses, Regular Rate, Rhythm Peripheral Pulses: 2+: Femoral (L), Femoral (R), Popliteal (L), Popliteal (R), Posterior Tibial (L), Posterior Tibial (R), Dorsalis Pedis (L), Dorsalis Pedis ( R) Extremities: Normal Capillary Refill, Other (Pain, tenderness, eccyhmosis left greater toe. Bunion there. ) Neurological: Alert Psychiatric: Normal Affect, Normal Mood Skin Exam: Warm, Dry, Intact, Normal Color, No Rash, Ecchymosis (right left greater toe) Course - Orders/Labs/Meds Orders: Active Orders 24 hr Category Date Time Status Foot Comp Min 3V Lt [CR] Stat Exams 04/21/19 13:14 Taken - Radiology Interpretation Free Text/Narrative:: Left foot; Abnormal foot anatomy, no fracture seen thats obvious. No dislocation. Radiologist will read later. Departure - Departure Time of Disposition: 13:54 Disposition: Home, Self-Care 01 Condition: Good Clinical Impression: Right foot pain - Discharge Information *PRESCRIPTION DRUG MONITORING PROGRAM REVIEWED*: Not Applicable *COPY OF PRESCRIPTION DRUG MONITORING REPORT IN PATIENT NAVI: Not Applicable Instructions: Foot Contusion, [id number] Forms: ED Department Discharge Additional Instructions: Followup with orthopedic Return as needed Followup with family doctor as needed Rest Ice Elevate Weight bearing as tolerated Boot as needed Tylenol or Motrin for pain as needed - My Orders Last 24 Hours: My Active Orders 04/21/19 13:14 Foot Comp Min 3V Lt [CR] Stat - Assessment/Plan Last 24 Hours: My Active Orders 04/21/19 13:14 Foot Comp Min 3V Lt [CR] Stat Plan: PLEASE SEE RN NOTE FOR PFSH.
[2019-04-21 16:04] VITALS: BP 133/63; PULSE 75
== END 2019-04-21 14:30 | disposition home or self-care (01) ==
LOC: CC.ED 13:08
DX: S90.112A Contusion of left great toe without damage to nail, initial encounter (principal); S90.111A Contusion of right great toe without damage to nail, initial encounter; I11.0 Hypertensive heart disease with heart failure; I50.9 Heart failure, unspecified; E78.00 Pure hypercholesterolemia, unspecified; E11.9 Type 2 diabetes mellitus without complications; E03.9 Hypothyroidism, unspecified; Z86.73 Personal history of transient ischemic attack (TIA), and cerebral infarction without residual deficits; Z88.8 Allergy status to other drugs, medicaments and biological substances; Z88.1 Allergy status to other antibiotic agents; Z88.6 Allergy status to analgesic agent; Z88.0 Allergy status to penicillin; Z88.2 Allergy status to sulfonamides; Z79.82 Long term (current) use of aspirin; Z79.4 Long term (current) use of insulin; Z79.899 Other long term (current) drug therapy; X58.XXXA Exposure to other specified factors, initial encounter
CPT/HCPCS: 73630-LT; 99283-25

== ENCOUNTER 2019-12-02 01:54 | Emergency (ER) | payer MEDICARE, MEDICAID ==
[~2019-12-02 01:54] MED LIST: 50% Dextrose in Water 50 ML Syringe ONE
[2019-12-02 02:24] VITALS: BP 150/79; PULSE 84
--- NOTE | 2019-12-02 02:30 | EDM.PDOC ---
ED HPI GENERAL MEDICAL PROBLEM - General Chief Complaint: General Stated Complaint: altered mental status Time Seen by Provider: 12/02/19 02:10 Source of Information: Reports: Patient, EMS, Shelter Records History Limitations: Reports: Other (non-verbal) - History of Present Illness INITIAL COMMENTS - FREE TEXT/NARRATIVE: Patient to the emergency department from the [facility] where she is found to have a low blood sugar, the lowest blood sugar was reported at 37 and was given an amp of D50 prior to arrival. The paramedics advised that the [facility] staff is advised that she has not been feeling well for the last several days. The patient is not answering any questions and is nonverbal at this point. They advised that this is normal for patient. Onset: Gradual Duration: Day(s): Severity: Moderate Improves with: Reports: Other (1 amp of D50 improved symptoms) Worsens with: Reports: None Associated Symptoms: Reports: Cough. Denies: Fever/Chills, Nausea/Vomiting Treatments BINDERY MACHINE TENDER: Reports: Other (see below) Other Treatments BINDERY MACHINE TENDER: EMS-D50 - Related Data Allergies Allergy/AdvReac Type Severity Reaction Status Date / Time boric acid Allergy Cannot Verified 12/02/19 03:03 Remember cephalexin monohydrate Allergy Cannot Verified 12/02/19 03:03 [From Keflex] Remember clindamycin Allergy Cannot Verified 12/02/19 03:03 Remember erythromycin base Allergy Cannot Verified 12/02/19 03:03 [Erythromycin Base] Remember folic acid Allergy Other Verified 12/02/19 03:03 ibuprofen Allergy Cannot Verified 12/02/19 03:03 Remember magnesium hydroxide Allergy Cannot Verified 12/02/19 03:03 [From Milk of Magnesia] Remember magnesium hydroxide Allergy Cannot Verified 12/02/19 03:03 [From Milk of Magnesia] Remember Penicillins Allergy Cannot Verified 12/02/19 03:03 Remember sulfamethoxazole Allergy Cannot Verified 12/02/19 03:03 [From Bactrim] Remember trimethoprim [From Bactrim] Allergy Cannot Verified 05/11/19 09:45 Remember Home Meds: Home Meds Insulin Aspart [NovoLOG] 1 - 10 units SUBCUT QIDACANDBED 12/01/13 [History] Levothyroxine 125 mcg PO DAILY 12/01/13 [History] Multivitamin [Multi-Vitamin Daily] 1 each PO BID 12/01/13 [History] Aspirin 81 mg PO DAILY 03/13/15 [History] Denosumab [Prolia] 60 mg SUBCUT Q6M 03/13/15 [History] Fexofenadine/Pseudoephedrine [Tammy-D 24 Hour Tablet] 1 tab PO DAILY 06/08/16 [History] Potassium Chloride [Klor-Con 10] 10 meq PO BIDMEALS #60 tab.er 06/11/16 [Rx] Albuterol/Ipratropium [DuoNeb 3.0-0.5 MG/3 ML] 1 ampule INH QID PRN 04/26/18 [ History] Fluticasone Propionate [Flonase Allergy Relief] 2 inh NASBOTH DAILY 04/26/18 [ History] Carboxymethylcellulose Sodium [Refresh Tears] 1 drop EYEBOTH TID 08/22/18 [ History] Insulin Degludec [Tresiba] 10 units SQ DAILY 09/04/18 [History] Nystatin 1 applic TOP BID PRN 09/04/18 [History] Sodium Chloride [[place] Saline] 1 spray KRUPA Q12H PRN 09/04/18 [History] Acetaminophen [Pain Relief] 500 mg PO BID 12/02/19 [History] Donepezil HCl [Aricept] 5 mg PO ASDIRECTED 12/02/19 [History] nitrofurantoin macrocrystaL [Nitrofurantoin] 2 tab PO DAILY 12/02/19 [History] Past Medical History HEENT History: Reports: Allergic Rhinitis, Other (See Below) Other HEENT History: dry eyes Cardiovascular History: Reports: Heart Failure, High Cholesterol, Hypertension, Other (See Below) Other Cardiovascular History: CVA Gastrointestinal History: Reports: Chronic Diarrhea, GERD Other Gastrointestinal History: reflux Genitourinary History: Reports: Other (See Below) Other Genitourinary History: yeast infections Musculoskeletal History: Reports: Osteoarthritis, Osteoporosis Other Musculoskeletal History: tibial plateau fracture in May 2014. Surgical repair by [facility]. Macedo at [facility]. Patient resumed weight bearing with ambultation November 2013. 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 Hematologic History: Reports: Anemia Dermatologic History: Reports: Cellulitis - Infectious Disease History Infectious Disease History: Reports: C-Difficile, Hepatitis B, MRSA - Past Surgical History HEENT Surgical History: Reports: Adenoidectomy, Tonsillectomy Cardiovascular Surgical History: Reports: Other (See Below) Other Musculoskeletal Surgeries/Procedures:: Tib Fib repair to right leg Social & Family History - Caffeine Use Caffeine Use: Reports: None - Living Situation & Occupation Living situation: Reports: Single, Other (USP) Occupation: Disabled ED ROS GENERAL - Review of Systems Review Of Systems: See Below Constitutional: Denies: Fever HEENT: Reports: No Symptoms Respiratory: Reports: Cough Cardiovascular: Reports: No Symptoms Endocrine: Reports: Low Glucose GI/Abdominal: Denies: Diarrhea, Vomiting Musculoskeletal: Reports: No Symptoms Skin: Denies: Bruising, Erythema Neurological: Reports: No Symptoms Psychiatric: Reports: No Symptoms ED EXAM, GENERAL - Physical Exam Exam: See Below Exam Limited By: No Limitations General Appearance: Alert, WD/WN, No Apparent Distress Ears: Normal External Exam, Normal [place] Nose: Normal Inspection Throat/Mouth: Normal Inspection, Normal Lips, No Airway Compromise Head: Atraumatic, Normocephalic Neck: Normal Inspection Respiratory/Chest: No Respiratory Distress, Lungs Clear, Normal Breath Sounds, Chest Non-Tender Cardiovascular: Normal Peripheral Pulses, Regular Rate, Rhythm Peripheral Pulses: 2+: Radial (L) GI/Abdominal: Soft, Non-Tender Back Exam: Normal Inspection Extremities: Normal Inspection, Normal Range of Motion, Normal Capillary Refill Neurological: Alert, Other (normal for pt) Psychiatric: Normal Affect, Normal Mood Skin Exam: Warm, Dry, Intact, Normal Color Course - Vital Signs Text/Narrative:: The patient was evaluated in the emergency department CBC and general chemistries are all essentially negative, urinalysis is negative chest x-ray is negative. The patient continues to have a cough here in the emergency room and the [facility] was questioned again to ensure that there is no possible exposures, they do advised that there are no exposures and that this cough that this patient has is a chronic cough. It appears as if the patient did have a hypoglycemic reaction and that was corrected with D50. The patient will be discharged back to the [facility] and advised to follow-up with the PCP this week Last Recorded V/S: Last Vital Signs Temp 35.9 C L 05/17/20 02:04 Pulse 84 12/02/19 02:04 Resp 18 12/02/19 02:04 BP 150/79 H 12/02/19 02:04 Pulse Ox 100 12/02/19 02:04 - Orders/Labs/Meds Orders: Active Orders 24 hr Category Date Time Status CXR [Chest 2V] [CR] Stat Exams 12/02/19 02:35 Ordered Labs: Laboratory Tests 12/02/19 12/02/19 12/02/19 Range/Units 02:30 02:30 03:01 WBC 2.7 L (5.0-10.0) 10^3/uL RBC 4.44 (4.00-5.50) 10^6/uL Hgb 15.1 (12.0-16.0) g/dL Hct 44.9 (37.0-47.0) % MCV 101.1 H (82.0-94.0) fL MCH 34.0 H (27.0-32.0) pg MCHC 33.6 (33.0-38.0) g/dL RDW Coeff of Dav 13.4 (11.0-15.0) % Plt Count 205 (150-400) 10^3/uL Neut % (Auto) 60.2 (35-85) % Lymph % (Auto) 24.5 (10-55) % [place] % (Auto) 13.9 (0-16) % Eos % (Auto) 0.7 (0-5) % Baso % (Auto) 0.7 (0-3) % Neut # (Auto) 1.65 L (1.80-7.00) 10^3/uL Lymph # (Auto) 0.67 L (1.00-4.80) 10^3/uL [place] # (Auto) 0.38 (0.00-0.80) 10^3/uL Eos # (Auto) 0.02 (0.00-0.45) 10^3/uL Baso # (Auto) 0.02 10^3/uL Sodium 138 (136-145) mEq/L Potassium 4.3 (3.5-5.0) mEq/L Chloride 100 (98-106) mEq/L Carbon Dioxide 34 H (21-32) mmol/L BUN 22 H (7-18) mg/dL Creatinine 1.2 H (0.6-1.0) mg/dL Est Cr Clr Drug Dosing TNP Estimated GFR (MDRD) 46 L (>=60) mL/min Glucose 176 H D (75-99) mg/dL Calcium 8.2 L (8.4-10.1) mg/dL Magnesium 1.9 (1.8-2.4) mg/dL Total Bilirubin 0.4 (0.0-1.0) mg/dL AST 30 (15-37) U/L ALT 35 (12-78) U/L Alkaline Phosphatase 132 H (46-116) U/L Total Protein 7.1 (6.4-8.2) g/dL Albumin 3.1 L (3.4-5.0) g/dL Urine Color Yellow (YELLOW) Urine Appearance Clear (CLEAR) Urine pH 7.0 (4.5-8.0) Ur Specific [place] 1.020 (1.003-1.020) Urine Protein Negative (NEGATIVE) mg/dL Urine Glucose (UA) 100 H (NEGATIVE) mg/dL Urine Ketones Negative (NEGATIVE) mg/dL Urine Occult Blood Trace-intact H (NEGATIVE) Urine Nitrite Negative (NEGATIVE) Urine Bilirubin Negative (NEGATIVE) Urine Urobilinogen 0.2 (0.2-1.0) EU/dL Ur Leukocyte Esterase Negative (NEGATIVE) Urine RBC 0-5 (0-5) /HPF Urine WBC 0-5 (0-5) /HPF Ur Squamous Epith Cells Occasional H (NOT SEEN) /HPF Urine Bacteria Occasional H (NOT SEEN) /HPF Meds: Medications Discontinued Medications Generic Name Dose Route Start Last Admin Trade Name Katie PRN Reason Stop Dose Admin Dextrose/Water Confirm 12/02/19 01:53 12/02/19 03:03 Dextrose 50% In Water Administered 12/02/19 01:54 Not Given Dose 50 ml .ROUTE .STK-MED ONE Departure - Departure Time of Disposition: 03:26 Disposition: Home, Self-Care 01 Condition: Good Clinical Impression: Hypoglycemic reaction - Discharge Information Referrals: Buzz St MD [Primary Care Provider] - Forms: ED Department Discharge Additional Instructions: Monitor blood sugar closely Follow-up with the family doctor this week, call Tuesday for an appointment time Return to the emergency department sooner if worse or any problems Sepsis Event Note - Evaluation Sepsis Screening Result: No Definite Risk - Focused Exam Vital Signs: Vital Signs Temp Pulse Resp BP Pulse Ox 12/02/19 02:04 35.9 C L 84 18 150/79 H 100 Date Exam was Performed: 12/02/19 Time Exam was Performed: 03:24 - Problem List & Annotations (1) Hypoglycemic reaction SNOMED Code(s): 386017 Code(s): E16.1 - OTHER HYPOGLYCEMIA Status: Acute Priority: High Current Visit: Yes - Problem List Review Problem List Initiated/Reviewed/Updated: Yes - My Orders Last 24 Hours: My Active Orders 12/02/19 02:35 CXR [Chest 2V] [CR] Stat - Assessment/Plan Last 24 Hours: My Active Orders 12/02/19 02:35 CXR [Chest 2V] [CR] Stat Plan: As above
[2019-12-02 02:47] LABS: CHLORIDE,CL 100 mEq/L (98-106); SODIUM,NA 138 mEq/L (136-145)
== END 2019-12-02 07:15 | disposition home or self-care (01) ==
LOC: CC.ED 01:54 → SUPCPDRO 01:54 → CC.ED 07:15
DX: E11.649 Type 2 diabetes mellitus with hypoglycemia without coma (principal); I11.0 Hypertensive heart disease with heart failure; I50.9 Heart failure, unspecified; Z86.73 Personal history of transient ischemic attack (TIA), and cerebral infarction without residual deficits; M19.90 Unspecified osteoarthritis, unspecified site; E03.9 Hypothyroidism, unspecified; Z88.1 Allergy status to other antibiotic agents; Z88.8 Allergy status to other drugs, medicaments and biological substances; Z88.2 Allergy status to sulfonamides; Z88.0 Allergy status to penicillin; Z79.899 Other long term (current) drug therapy; Z79.82 Long term (current) use of aspirin; Z79.4 Long term (current) use of insulin
CPT/HCPCS: 36415; 71046; 80053; 81001; 83735; 85025; 99284; 99285-25

== ENCOUNTER 2019-12-25 22:26 | Observation (INO) | payer MEDICARE, MEDICAID ==
[2019-12-25] MEDS ORDERED: 50% Dextrose in Water 50 ML Syringe IVPUSH ONE (22:42)
[2019-12-25 23:00] LABS: CHLORIDE,CL 101 mEq/L (98-106); SODIUM,NA 139 mEq/L (136-145)
--- NOTE | 2019-12-25 23:20 | EDM.PDOC ---
ED HPI GENERAL MEDICAL PROBLEM - General Chief Complaint: General Stated Complaint: Low blood sugar Time Seen by Provider: 12/25/19 22:50 Source of Information: Reports: EMS, [facility] Records History Limitations: Reports: Altered Mental Status - History of Present Illness INITIAL COMMENTS - FREE TEXT/NARRATIVE: Patient presents to ER per EMS after seizure-like activity as a result of a low blood sugar. Blood sugar at the senior care was 23. EMS did give her 2 tubes of glutose. Blood sugar on arrival was 49. Patient complaining of dizziness, shaking head back and forth on arrival. Per sister, has not been aware of any recent illness, has been eating well. Does have history of frequent UTI, is currently taking Macrobid daily. Sister relates that she has had incidences of very high and very low blood sugars in the past without finding a reliable source. She also has history of low WBC. Onset: Today, Sudden Duration: Minutes: Location: Reports: Generalized Associated Symptoms: Reports: Confusion (chronically on Aricept), Seizure. Denies: Fever/Chills, Loss of Appetite, Nausea/Vomiting, Shortness of Breath Treatments PHYSICAL SECURITY SPECIALIST: Reports: Other Medication(s) (glutose) - Related Data Allergies Allergy/AdvReac Type Severity Reaction Status Date / Time boric acid Allergy Cannot Verified 12/25/19 23:05 Remember cephalexin monohydrate Allergy Cannot Verified 12/25/19 23:05 [From Keflex] Remember clindamycin Allergy Cannot Verified 12/25/19 23:05 Remember erythromycin base Allergy Cannot Verified 12/25/19 23:05 [Erythromycin Base] Remember folic acid Allergy Other Verified 12/25/19 23:05 ibuprofen Allergy Cannot Verified 12/25/19 23:05 Remember magnesium hydroxide Allergy Cannot Verified 12/25/19 23:05 [From Milk of Magnesia] Remember magnesium hydroxide Allergy Cannot Verified 12/25/19 23:05 [From Milk of Magnesia] Remember Penicillins Allergy Cannot Verified 12/25/19 23:05 Remember sulfamethoxazole Allergy Cannot Verified 12/25/19 23:05 [From Bactrim] Remember trimethoprim [From Bactrim] Allergy Cannot Verified 12/25/19 23:05 Remember Home Meds: Home Meds Insulin Aspart [NovoLOG] 1 - 10 units SUBCUT QIDACANDBED 12/01/13 [History] Levothyroxine 125 mcg PO DAILY 12/01/13 [History] Multivitamin [Multi-Vitamin Daily] 1 each PO BID 12/01/13 [History] Aspirin 81 mg PO DAILY 03/13/15 [History] Denosumab [Prolia] 60 mg SUBCUT Q6M 03/13/15 [History] Fexofenadine/Pseudoephedrine [Tammy-D 24 Hour Tablet] 1 tab PO DAILY 06/08/16 [History] Potassium Chloride [Klor-Con 10] 10 meq PO BIDMEALS #60 tab.er 06/11/16 [Rx] Albuterol/Ipratropium [DuoNeb 3.0-0.5 MG/3 ML] 1 ampule INH QID PRN 04/26/18 [ History] Fluticasone Propionate [Flonase Allergy Relief] 2 inh NASBOTH DAILY 04/26/18 [ History] Carboxymethylcellulose Sodium [Refresh Tears] 1 drop EYEBOTH TID 08/22/18 [ History] Insulin Degludec [Tresiba] 25 units SQ DAILY 09/04/18 [History] Nystatin 1 applic TOP BID PRN 09/04/18 [History] Sodium Chloride [[place] Saline] 1 spray KRUPA Q12H PRN 09/04/18 [History] Acetaminophen [Pain Relief] 500 mg PO BID 12/02/19 [History] Donepezil HCl [Aricept] 5 mg PO BEDTIME 12/02/19 [History] nitrofurantoin macrocrystaL [Nitrofurantoin] 100 mg PO DAILY 12/25/19 [History] Past Medical History HEENT History: Reports: Allergic Rhinitis, Other (See Below) Other HEENT History: dry eyes Cardiovascular History: Reports: Heart Failure, High Cholesterol, Hypertension, Other (See Below) Other Cardiovascular History: CVA Gastrointestinal History: Reports: Chronic Diarrhea, GERD Other Gastrointestinal History: reflux Genitourinary History: Reports: Other (See Below) Other Genitourinary History: yeast infections Musculoskeletal History: Reports: Osteoarthritis, Osteoporosis Other Musculoskeletal History: tibial plateau fracture in May 2014. Surgical repair by Dr. Macedo at [facility]. Patient resumed weight bearing with ambultation November 2013. 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 Hematologic History: Reports: Anemia Dermatologic History: Reports: Cellulitis - Infectious Disease History Infectious Disease History: Reports: C-Difficile, Hepatitis B, MRSA - Past Surgical History HEENT Surgical History: Reports: Adenoidectomy, Tonsillectomy Cardiovascular Surgical History: Reports: Other (See Below) Other Musculoskeletal Surgeries/Procedures:: Tib Fib repair to right leg Social & Family History - Tobacco Use Smoking Status *Q: Never Smoker Second Hand Smoke Exposure: No - Caffeine Use Caffeine Use: Reports: None - Recreational Drug Use Recreational Drug Use: No - Living Situation & Occupation Living situation: Reports: Single, Other (longterm) Occupation: Disabled ED ROS GENERAL - Review of Systems Review Of Systems: See Below (obtained per [address] [place] [address] staff, EMS and sister) Constitutional: Reports: Malaise, Weakness. Denies: Fever, Chills, Decreased Appetite HEENT: Reports: Rhinitis. Denies: Ear Pain, Throat Pain Respiratory: Denies: Shortness of Breath, Cough Cardiovascular: Denies: Chest Pain, Edema, Lightheadedness Endocrine: Reports: Fatigue GI/Abdominal: Denies: Abdominal Pain, Nausea, Vomiting : Reports: Incontinence Skin: Reports: No Symptoms Neurological: Reports: Dizziness ED EXAM, GENERAL - Physical Exam Exam: See Below Exam Limited By: Altered Mental Status General Appearance: WD/WN, Anxious (is restless ), Other (sleepy) Eye Exam: Bilateral Eye: PERRL Ears: Normal External Exam, Normal TMs Nose: Normal Inspection, Normal Mucosa, No Blood Throat/Mouth: Other (lips dry and cracked; mucous membranes are moist) Head: Normocephalic Neck: Normal Inspection, Supple, Non-Tender Respiratory/Chest: No Respiratory Distress, Lungs Clear, Normal Breath Sounds Cardiovascular: Regular Rate, Rhythm GI/Abdominal: Normal Bowel Sounds, Soft, Non-Tender Extremities: Other (chronic venous stasis to lower extremities) Neurological: Disoriented Skin Exam: Warm, Dry Course - Vital Signs Last Recorded V/S: Last Vital Signs Temp 96.9 F 12/25/19 23:12 Pulse 67 12/25/19 23:12 Resp 16 12/25/19 23:12 BP 121/75 12/25/19 23:12 Pulse Ox 98 12/25/19 23:12 - Orders/Labs/Meds Labs: Laboratory Tests 12/25/19 12/25/19 12/25/19 Range/Units 22:50 22:50 23:00 WBC 3.5 L (5.0-10.0) 10^3/uL RBC 4.57 (4.00-5.50) 10^6/uL Hgb 15.6 (12.0-16.0) g/dL Hct 45.9 (37.0-47.0) % MCV 100.4 H (82.0-94.0) fL MCH 34.1 H (27.0-32.0) pg MCHC 34.0 (33.0-38.0) g/dL RDW Coeff of Dav 13.0 (11.0-15.0) % Plt Count 207 (150-400) 10^3/uL Neut % (Auto) 55.1 (35-85) % Lymph % (Auto) 35.2 (10-55) % [place] % (Auto) 8.5 (0-16) % Eos % (Auto) 0.6 (0-5) % Baso % (Auto) 0.6 (0-3) % Neut # (Auto) 1.94 (1.80-7.00) 10^3/uL Lymph # (Auto) 1.24 (1.00-4.80) 10^3/uL [place] # (Auto) 0.30 (0.00-0.80) 10^3/uL Eos # (Auto) 0.02 (0.00-0.45) 10^3/uL Baso # (Auto) 0.02 10^3/uL Sodium 139 (136-145) mEq/L Potassium 3.6 (3.5-5.0) mEq/L Chloride 101 (98-106) mEq/L Carbon Dioxide 33 H (21-32) mmol/L BUN 23 H (7-18) mg/dL Creatinine 1.3 H (0.6-1.0) mg/dL Est Cr Clr Drug Dosing TNP Estimated GFR (MDRD) 42 L (>=60) mL/min Glucose 44 L D (75-99) mg/dL Calcium 8.9 (8.4-10.1) mg/dL Urine Color Light yellow (YELLOW) Urine Appearance Clear (CLEAR) Urine pH 6.5 (4.5-8.0) Ur Specific [place] 1.020 (1.003-1.020) Urine Protein Negative (NEGATIVE) mg/dL Urine Glucose (UA) 100 H (NEGATIVE) mg/dL Urine Ketones Negative (NEGATIVE) mg/dL Urine Occult Blood Trace-intact H (NEGATIVE) Urine Nitrite Negative (NEGATIVE) Urine Bilirubin Negative (NEGATIVE) Urine Urobilinogen 0.2 (0.2-1.0) EU/dL Ur Leukocyte Esterase Negative (NEGATIVE) Meds: Medications Discontinued Medications Generic Name Dose Route Start Last Admin Trade Name Katie PRN Reason Stop Dose Admin Dextrose/Water 50 ml 12/25/19 22:42 12/25/19 22:48 Dextrose 50% In Water IVPUSH 12/25/19 22:43 25 ml ONETIME ONE Administration - Re-Assessments/Exams Free Text/Narrative Re-Assessment/Exam: 12/25/19 23:24 Labs reviewed, essentially all normal. Blood sugar 44 per lab, now 131 per nurse after given 1/2 amp of D50. Will admit to observation, follow blood sugars every 2 hours. IV D5 1/2 NS infusion. Departure - Departure Time of Disposition: 23:27 Disposition: Refer to Observation Condition: Fair Clinical Impression: Hypoglycemic reaction - Discharge Information *PRESCRIPTION DRUG MONITORING PROGRAM REVIEWED*: No *COPY OF PRESCRIPTION DRUG MONITORING REPORT IN PATIENT NAVI: No Referrals: Aleyda Robin PA [Primary Care Provider] - Sepsis Event Note (ED) - Evaluation Sepsis Screening Result: No Definite Risk - Focused Exam Vital Signs: Vital Signs Temp Pulse Resp BP Pulse Ox 12/25/19 23:12 96.9 F 67 16 121/75 98 - Problem List & Annotations (1) Hypoglycemic reaction SNOMED Code(s): 754654 Code(s): E16.1 - OTHER HYPOGLYCEMIA Status: Acute Priority: High Current Visit: Yes - Problem List Review Problem List Initiated/Reviewed/Updated: Yes - Assessment/Plan Admission H&P: Please use this note as an admission H&P Assessment:: Hypoglycemia Plan: Admit observation. Will follow blood sugars closely through night. IV fluids.
[2019-12-25] MEDS ORDERED: Albuterol/Ipratropium 3.0-0.5 MG/3 ML Neb Soln INH PRN (23:39)
[2019-12-25] MEDS ORDERED: Acetaminophen 325 MG Tab PO PRN (23:39)
[2019-12-25] MEDS ORDERED: Ondansetron 4 MG/2 ML SDV IV PRN (23:39)
[2019-12-25] MEDS ORDERED: Sodium Chloride 0.9% 10 ML Syringe FLUSH PRN (23:39)
[2019-12-25] MEDS ORDERED: Ondansetron 4 MG Tab.DIS PO PRN (23:39)
[2019-12-25] MEDS ORDERED: Non-Formulary Medication 1 Each (Nystatin [Nystatin] 1 APPLIC) TOP PRN (23:39)
[2019-12-25] MEDS ORDERED: Sodium Chloride 0.65% Nasal Spray 45 ML Bottle NAS PRN (23:39)
[2019-12-25] MEDS ORDERED: Dextrose 5%-0.45% NaCl 1,000 ML IV SCH (23:45)
[2019-12-26] MEDS ORDERED: Insulin Lispro 100 Units/ML 3 ML Vial SUBCUT SCH ×2 (06:00→12:30)
[2019-12-26] MEDS ORDERED: Acetaminophen 500 MG Tab PO SCH (08:00)
[2019-12-26] MEDS ORDERED: Aspirin 81 MG Tab.EC PO SCH (08:00)
[2019-12-26] MEDS ORDERED: NITROFURANTOIN 100 MG PO SCH (08:00)
[2019-12-26] MEDS ORDERED: Potassium Chloride 10 MEQ Tab.ER**PT OWN PO SCH (08:00)
[2019-12-26] MEDS ORDERED: MULTIVITAMIN PO SCH ×2 (08:00→10:50)
[2019-12-26] MEDS ORDERED: FEXOFENADINE PO SCH ×2 (08:00→10:49)
[2019-12-26] MEDS ORDERED: [UNRECOGNIZED DRUG - OTHER] PO SCH ×2 (08:00→10:50)
[2019-12-26] MEDS ORDERED: LEVOTHYROXINE 125 MCG PO SCH (08:00)
[2019-12-26] MEDS ORDERED: PSEUDOEPHEDRINE PO SCH ×2 (08:00→10:49)
[2019-12-26] MEDS ORDERED: INSULIN DEGLUDEC 100 UNIT/ML SQ SCH (09:30)
[2019-12-26] MEDS ORDERED: [UNRECOGNIZED DRUG - OTHER] EYEBOTH SCH (10:45)
[2019-12-26] MEDS ORDERED: Fluticasone Propionate Nasal Spray 16 GM Bottle NASBOTH SCH (10:45)
[2019-12-26] MEDS ORDERED: POTASSIUM CHLORIDE 10 MEQ PO SCH (10:57)
[2019-12-26] MEDS ORDERED: NITROFURANTOIN MONOHYDRATE PO SCH (11:00)
[2019-12-26] MEDS ORDERED: MACROCRYSTALLINE PO SCH (11:00)
[2019-12-26 12:19] VITALS: BP 128/60; PULSE 78
--- NOTE | 2019-12-26 16:17 | PCM.DCSUM1 ---
Discharge Summary - Hospital Course Free Text/Narrative:: Patient presented to ER last evening due to questionable seizure activity related to a low blood sugar. She had a level of 23 at the scene, was given 2 tubes of glutose at the scene. On arrival to ER, blood sugar was 49. Patient complained of dizziness. No pain. Was given 1/2 amp of D50 and blood sugar increased to 131. Patient was quite restless, calmed with sister's arrival. Labs done, all normal. Admitted to observation for frequent monitoring of blood sugars, IV fluids. Diagnosis: Stroke: No Modified [place] Scale: No Symptoms at All Modified [place] Scale Score: 0 - Discharge Data Discharge Date: 12/26/19 Discharge Disposition: Home, Self-Care 01 Condition: Good - Referral to Home Health Primary Care Physician: SALINAS Raines - Discharge Diagnosis/Problem(s) (1) Hypoglycemic reaction SNOMED Code(s): 546978 ICD Code: E16.1 - OTHER HYPOGLYCEMIA Status: Acute Priority: High - Patient Summary/Data Complications: none Hospital Course: Patient is doing well today. Up and eating dinner. Is conversive, denies any further dizziness. She denies any pain. States is feeling good. Blood sugars have been greater than 200. IV fluids stopped this am, sugars have remained stable. Labs remain stable this am. Will discharge back to the correction. Continue to watch blood sugars QID as prior and report concerns to Daxa Henderson. - Patient Instructions Diet: Diabetic Diet Activity: As Tolerated - Discharge Plan *PRESCRIPTION DRUG MONITORING PROGRAM REVIEWED*: No *COPY OF PRESCRIPTION DRUG MONITORING REPORT IN PATIENT NAVI: No Home Medications: Home Meds Insulin Aspart [NovoLOG] 1 - 10 units SUBCUT QIDACANDBED 12/01/13 [History] Levothyroxine 125 mcg PO DAILY 12/01/13 [History] Multivitamin [Multi-Vitamin Daily] 1 each PO BID 12/01/13 [History] Aspirin 81 mg PO DAILY 03/13/15 [History] Denosumab [Prolia] 60 mg SUBCUT Q6M 03/13/15 [History] Fexofenadine/Pseudoephedrine [Tammy-D 24 Hour Tablet] 1 tab PO DAILY 06/08/16 [History] Potassium Chloride [Klor-Con 10] 10 meq PO BIDMEALS #60 tab.er 06/11/16 [Rx] Albuterol/Ipratropium [DuoNeb 3.0-0.5 MG/3 ML] 1 ampule INH QID PRN 04/26/18 [ History] Fluticasone Propionate [Flonase Allergy Relief] 2 inh NASBOTH DAILY 04/26/18 [ History] Carboxymethylcellulose Sodium [Refresh Tears] 1 drop EYEBOTH TID 08/22/18 [ History] Insulin Degludec [Tresiba] 30 units SQ DAILY 09/04/18 [History] Nystatin 1 applic TOP BID 09/04/18 [History] Sodium Chloride [[place] Saline] 1 spray KRUPA Q12H PRN 09/04/18 [History] Acetaminophen [Pain Relief] 1,000 mg PO BID 12/02/19 [History] Donepezil HCl [Aricept] 5 mg PO BEDTIME 12/02/19 [History] nitrofurantoin macrocrystaL [Nitrofurantoin] 100 mg PO DAILY 12/25/19 [History] Nystatin [Nystatin Crm] 15 gm TOP BID PRN 12/26/19 [History] Forms: ED Department Discharge Referrals: Aleyda Robin PA [Primary Care Provider] - - Discharge Summary/Plan Comment DC Time >30 min.: No - General Info Date of Service: 12/26/19 Admission Dx/Problem (Free Text: Hypotension Functional Status: Reports: Pain Controlled, Tolerating Diet, Ambulating - Review of Systems General: Denies: Weakness, Fatigue, Malaise HEENT: Reports: Rhinitis Pulmonary: Denies: Shortness of Breath, Cough Cardiovascular: Denies: Chest Pain, Edema, Lightheadedness Gastrointestinal: Denies: Abdominal Pain, Nausea, Vomiting Genitourinary: Reports: No Symptoms Musculoskeletal: Reports: No Symptoms Skin: Reports: No Symptoms Neurological: Reports: No Symptoms - Patient Data Vitals - Most Recent: Last Vital Signs Temp 97.0 F 12/26/19 12:00 Pulse 78 12/26/19 12:00 Resp 18 12/26/19 12:00 BP 128/60 12/26/19 12:00 Pulse Ox 98 12/26/19 12:00 Weight - Most Recent: 138 lb Lab Results - Last 24 hrs: Laboratory Results - last 24 hr 06/09/20 06/09/20 06/09/20 Range/Units 22:50 22:50 23:00 WBC 3.5 L (5.0-10.0) 10^3/uL RBC 4.57 (4.00-5.50) 10^6/uL Hgb 15.6 (12.0-16.0) g/dL Hct 45.9 (37.0-47.0) % MCV 100.4 H (82.0-94.0) fL MCH 34.1 H (27.0-32.0) pg MCHC 34.0 (33.0-38.0) g/dL RDW Coeff of Dav 13.0 (11.0-15.0) % Plt Count 207 (150-400) 10^3/uL Neut % (Auto) 55.1 (35-85) % Lymph % (Auto) 35.2 (10-55) % Day % (Auto) 8.5 (0-16) % Eos % (Auto) 0.6 (0-5) % Baso % (Auto) 0.6 (0-3) % Neut # (Auto) 1.94 (1.80-7.00) 10^3/uL Lymph # (Auto) 1.24 (1.00-4.80) 10^3/uL Day # (Auto) 0.30 (0.00-0.80) 10^3/uL Eos # (Auto) 0.02 (0.00-0.45) 10^3/uL Baso # (Auto) 0.02 10^3/uL Sodium 139 (136-145) mEq/L Potassium 3.6 (3.5-5.0) mEq/L Chloride 101 (98-106) mEq/L Carbon Dioxide 33 H (21-32) mmol/L BUN 23 H (7-18) mg/dL Creatinine 1.3 H (0.6-1.0) mg/dL Est Cr Clr Drug Dosing TNP Estimated GFR (MDRD) 42 L (>=60) mL/min Glucose 44 L D (75-99) mg/dL POC Glucose (75-105) mg/dl Calcium 8.9 (8.4-10.1) mg/dL Urine Color Light yellow (YELLOW) Urine Appearance Clear (CLEAR) Urine pH 6.5 (4.5-8.0) Ur Specific [place] 1.020 (1.003-1.020) Urine Protein Negative (NEGATIVE) mg/dL Urine Glucose (UA) 100 H (NEGATIVE) mg/dL Urine Ketones Negative (NEGATIVE) mg/dL Urine Occult Blood Trace-intact H (NEGATIVE) Urine Nitrite Negative (NEGATIVE) Urine Bilirubin Negative (NEGATIVE) Urine Urobilinogen 0.2 (0.2-1.0) EU/dL Ur Leukocyte Esterase Negative (NEGATIVE) 12/26/19 12/26/19 12/26/19 Range/Units 01:41 03:57 06:05 WBC (5.0-10.0) 10^3/uL RBC (4.00-5.50) 10^6/uL Hgb (12.0-16.0) g/dL Hct (37.0-47.0) % MCV (82.0-94.0) fL MCH (27.0-32.0) pg MCHC (33.0-38.0) g/dL RDW Coeff of Dav (11.0-15.0) % Plt Count (150-400) 10^3/uL Neut % (Auto) (35-85) % Lymph % (Auto) (10-55) % Day % (Auto) (0-16) % Eos % (Auto) (0-5) % Baso % (Auto) (0-3) % Neut # (Auto) (1.80-7.00) 10^3/uL Lymph # (Auto) (1.00-4.80) 10^3/uL Day # (Auto) (0.00-0.80) 10^3/uL Eos # (Auto) (0.00-0.45) 10^3/uL Baso # (Auto) 10^3/uL Sodium (136-145) mEq/L Potassium (3.5-5.0) mEq/L Chloride (98-106) mEq/L Carbon Dioxide (21-32) mmol/L BUN (7-18) mg/dL Creatinine (0.6-1.0) mg/dL Est Cr Clr Drug Dosing Estimated GFR (MDRD) (>=60) mL/min Glucose (75-99) mg/dL POC Glucose 186 H 198 H 291 H (75-105) mg/dl Calcium (8.4-10.1) mg/dL Urine Color (YELLOW) Urine Appearance (CLEAR) Urine pH (4.5-8.0) Ur Specific [place] (1.003-1.020) Urine Protein (NEGATIVE) mg/dL Urine Glucose (UA) (NEGATIVE) mg/dL Urine Ketones (NEGATIVE) mg/dL Urine Occult Blood (NEGATIVE) Urine Nitrite (NEGATIVE) Urine Bilirubin (NEGATIVE) Urine Urobilinogen (0.2-1.0) EU/dL Ur Leukocyte Esterase (NEGATIVE) 12/26/19 12/26/19 12/26/19 Range/Units 07:00 07:00 10:19 WBC 2.7 L (5.0-10.0) 10^3/uL RBC 4.45 (4.00-5.50) 10^6/uL Hgb 15.1 (12.0-16.0) g/dL Hct 44.8 (37.0-47.0) % MCV 100.7 H (82.0-94.0) fL MCH 33.9 H (27.0-32.0) pg MCHC 33.7 (33.0-38.0) g/dL RDW Coeff of Dav 13.2 (11.0-15.0) % Plt Count 206 (150-400) 10^3/uL Neut % (Auto) 55.4 (35-85) % Lymph % (Auto) 34.0 (10-55) % Day % (Auto) 9.8 (0-16) % Eos % (Auto) 0.4 (0-5) % Baso % (Auto) 0.4 (0-3) % Neut # (Auto) 1.47 L (1.80-7.00) 10^3/uL Lymph # (Auto) 0.90 L (1.00-4.80) 10^3/uL Day # (Auto) 0.26 (0.00-0.80) 10^3/uL Eos # (Auto) 0.01 (0.00-0.45) 10^3/uL Baso # (Auto) 0.01 10^3/uL Sodium 136 (136-145) mEq/L Potassium 4.0 (3.5-5.0) mEq/L Chloride 101 (98-106) mEq/L Carbon Dioxide 33 H (21-32) mmol/L BUN 16 (7-18) mg/dL Creatinine 1.2 H (0.6-1.0) mg/dL Est Cr Clr Drug Dosing 34.91 Estimated GFR (MDRD) 46 L (>=60) mL/min Glucose 246 H D (75-99) mg/dL POC Glucose 297 H (75-105) mg/dl Calcium 8.5 (8.4-10.1) mg/dL Urine Color (YELLOW) Urine Appearance (CLEAR) Urine pH (4.5-8.0) Ur Specific [place] (1.003-1.020) Urine Protein (NEGATIVE) mg/dL Urine Glucose (UA) (NEGATIVE) mg/dL Urine Ketones (NEGATIVE) mg/dL Urine Occult Blood (NEGATIVE) Urine Nitrite (NEGATIVE) Urine Bilirubin (NEGATIVE) Urine Urobilinogen (0.2-1.0) EU/dL Ur Leukocyte Esterase (NEGATIVE) Med Orders - Current: Current Medications Discontinued Medications Acetaminophen (Tylenol) 650 mg PO Q4H PRN PRN Reason: Pain (Mild 1-3)/fever Acetaminophen (Tylenol Extra Strength) 500 mg PO BID REPLACED BY [facility] Last Admin: 12/26/19 08:04 Dose: 500 mg Albuterol/Ipratropium (Duoneb 3.0-0.5 Mg/3 Ml) 3 ml INH QID PRN PRN Reason: Wheezing Last Admin: 12/26/19 01:52 Dose: 3 ml Aspirin (Halfprin) 81 mg PO DAILY REPLACED BY [facility] Last Admin: 12/26/19 08:03 Dose: 81 mg Dextrose/Water (Dextrose 50% In Water) 50 ml IVPUSH ONETIME ONE Stop: 12/25/19 22:43 Last Admin: 12/25/19 22:48 Dose: 25 ml Donepezil HCl (Aricept) 5 mg PO BEDTIME REPLACED BY [facility] Fluticasone Propionate (Flonase) 0 gm NASBOTH DAILY REPLACED BY [facility] Last Admin: 12/26/19 11:18 Dose: 2 spray Dextrose/Sodium Chloride (Dextrose 5%-1/2 Ns) 1,000 mls @ 100 mls/hr IV ASDIRECTED REPLACED BY [facility] Last Admin: 12/26/19 00:07 Dose: 100 mls/hr Insulin Human Lispro (Humalog) 1 - 10 unit SUBCUT QIDACANDBED REPLACED BY [facility] Last Admin: 12/26/19 08:11 Dose: 8 units Insulin Human Lispro (Humalog) 1 - 10 unit SUBCUT QIDPCANDBED REPLACED BY [facility] Last Admin: 12/26/19 13:21 Dose: 3 units Levothyroxine Sodium (Levothyroxine) 125 mcg PO DAILY REPLACED BY [facility] Last Admin: 12/26/19 08:03 Dose: 125 mcg Levothyroxine Sodium (Levothyroxine) 125 mcg PO ACBREAKFAST REPLACED BY [facility] Nitrofurantoin Macrocrystals (Macrobid) 100 mg PO DAILY REPLACED BY [facility] Carboxymethylcellulo se Sodium [Refresh Tears] Eye Drops 0 drop EYEBOTH TID REPLACED BY [facility] Last Admin: 12/26/19 11:17 Dose: 1 drop Fexofenadine/Pseudoephedrine [ Tammy-D 24 Hour Tablet] Pt Own 1 tab PO DAILY REPLACED BY [facility] Last Admin: 12/26/19 08:02 Dose: 1 tab Insulin Degludec [ Tresiba] 100 Units/Ml 30 units SQ DAILY REPLACED BY [facility] Last Admin: 12/26/19 09:38 Dose: 30 units H+M Complete (Multivit) 1 each PO BID REPLACED BY [facility] Last Admin: 12/26/19 08:04 Dose: 1 each Nitrofurantoin [ Nitrofurantoin] 100 MgPt Own 100 mg PO DAILY REPLACED BY [facility] Last Admin: 12/26/19 08:04 Dose: 100 mg Non-Formulary Medication (Nystatin [Nystatin]) 1 applic TOP BID PRN PRN Reason: Wound Care Fexofenadine/Pseudoephedrine [ Tammy-D 24 Hour Tablet] Pt Own 0 tab PO DAILY REPLACED BY [facility] H+M Complete (Multivit) 0 each PO BID REPLACED BY [facility] Potassium Chloride 10 Meq Er Capsule * *Pt Own 0 each PO BIDMEALS REPLACED BY [facility] Ondansetron HCl (Zofran Odt) 4 mg PO Q4H PRN PRN Reason: nausea, able to take PO Ondansetron HCl (Zofran) 4 mg IV Q4H PRN PRN Reason: Nausea/Vomiting Potassium Chloride (Klor-Con 10) 10 meq PO BIDMEALS REPLACED BY [facility] Last Admin: 12/26/19 08:03 Dose: 10 meq Sodium Chloride (Saline Flush) 10 ml FLUSH ASDIRECTED PRN PRN Reason: Keep Vein Open Sodium Chloride ([place]al [place]) 1 ml KRUPA Q12H PRN PRN Reason: Nasal Dryness - Exam General: Reports: Alert, Oriented HEENT: Reports: Mucous Membr. Moist/[place] Neck: Reports: Supple Lungs: Reports: Clear to Auscultation, Normal Respiratory Effort Cardiovascular: Reports: Regular Rate, Regular Rhythm GI/Abdominal Exam: Normal Bowel Sounds, Soft, Non-Tender Extremities: Normal Inspection, No Pedal Edema Skin: Reports: Warm Neurological: Reports: No New Focal Deficit
[2019-12-26] MEDS ORDERED: DONEPEZIL 5 MG PO SCH (20:00)
[2019-12-27] MEDS ORDERED: LEVOTHYROXINE 125 MCG PO SCH (07:00)
== END 2019-12-26 13:55 | disposition home or self-care (01) ==
LOC: CC.ED 22:26 → UNDOADMOB 23:20 → CC.MS 23:20
PROVIDERS: ADMIT Physician Assistant Medical; ATTEND Family Medicine
DX: E11.649 Type 2 diabetes mellitus with hypoglycemia without coma (principal); I11.0 Hypertensive heart disease with heart failure; I50.9 Heart failure, unspecified; E78.00 Pure hypercholesterolemia, unspecified; Z88.8 Allergy status to other drugs, medicaments and biological substances; Z88.1 Allergy status to other antibiotic agents; Z88.0 Allergy status to penicillin; Z88.2 Allergy status to sulfonamides; Z79.899 Other long term (current) drug therapy
CPT/HCPCS: 36415; 80048; 81003; 82962; 85025; 96374; 99285-25; A9270-GY; J1815-GY; J7042; J7620-GY

== ENCOUNTER 2020-02-23 12:34 | Emergency (ER) | payer MEDICARE, MEDICAID ==
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
[2020-02-23] MEDS: Sodium Chloride 0.9% 1,000 ML IV ONE (14:03)
[2020-02-23] MEDS: Iopamidol 755 Mg/ML 100 ML Bottle IVPUSH ONE (14:07)
[2020-02-23] MEDS: methylPREDNISolone Sodium Succinate 125 MG/2 ML SDV IVPUSH STA (14:21)
[2020-02-23] MEDS: diphenhydrAMINE 50 MG/ML SDV IVPUSH ONE (14:25)
[2020-02-23] MEDS: Famotidine 20 MG/2 ML SDV IVPUSH ONE (14:31)
[2020-02-23 17:11] VITALS: BP 106/56; PULSE 73
== END 2020-02-23 17:35 ==
LOC: CC.ED 12:34
DX: E86.0 Dehydration (principal); E11.9 Type 2 diabetes mellitus without complications; E87.1 Hypo-osmolality and hyponatremia; R53.1 Weakness; R21 Rash and other nonspecific skin eruption; I11.0 Hypertensive heart disease with heart failure; I50.9 Heart failure, unspecified; E03.9 Hypothyroidism, unspecified; M19.90 Unspecified osteoarthritis, unspecified site; I44.7 Left bundle-branch block, unspecified; Z20.828 Contact with and (suspected) exposure to other viral communicable diseases; Z88.8 Allergy status to other drugs, medicaments and biological substances; Z88.1 Allergy status to other antibiotic agents; Z88.6 Allergy status to analgesic agent; Z88.0 Allergy status to penicillin; Z88.2 Allergy status to sulfonamides; Z79.4 Long term (current) use of insulin; Z79.82 Long term (current) use of aspirin; Z79.899 Other long term (current) drug therapy
CPT/HCPCS: 36415; 70450; 71045; 74177; 80053; 81001; 82150; 82550; 83605; 83615; 83690; 84484; 85025; 86140; 87040; 87430; 87804; 93005; 96361; 96374; 96375; 99285; J1200; J2930; J3490; J7030; Q9967; U0002

== ENCOUNTER 2021-04-26 15:40 | Observation (INO) | payer MEDICARE, MEDICAID ==
--- NOTE | 2021-04-26 16:24 | EDM.PDOC ---
ED HPI GENERAL MEDICAL PROBLEM - General Chief Complaint: General Stated Complaint: Hypoglycemia Time Seen by Provider: 04/26/21 16:00 Source of Information: Reports: Other ([address] [place] [id number] staff) History Limitations: Reports: Other (patient developmentally disabled) - History of Present Illness INITIAL COMMENTS - FREE TEXT/NARRATIVE: Jade is a 65 year old female presents to ER per EMS after a low blood sugar reaction. Staff reports she ate her lunch today, got her usual 9 units of insulin at dinner. Went to lay down after dinner. Around 1430, staff heard her calling out and checked on patient, found her very shaky so checked her blood sugar and it was 42. EMS was called. On arrival, EMS gave one amp of D50 and follow up blood sugar was over 300. On arrival here, blood sugar 145. Patient is alert. Answers no to every question asked. Contacted sister who is involved in her care, sister is unaware of any recent changes. Does admit that she has not been eating as well. Staff has had to try to offer yogurt at times as meal intake is sometimes poor. Is unaware of any illnesses or concerns. Onset: Today, Sudden Duration: Minutes:, Improving Location: Reports: Generalized Associated Symptoms: Reports: Confusion. Denies: Cough, Fever/Chills, Nausea/Vomiting, Shortness of Breath Treatments DIE FILER: Reports: See EMS Report, Other (see below) (D50 given) - Related Data Allergies Allergy/AdvReac Type Severity Reaction Status Date / Time boric acid Allergy Cannot Verified 04/26/21 15:49 Remember cephalexin monohydrate Allergy Cannot Verified 04/26/21 15:49 [From Keflex] Remember clindamycin Allergy Cannot Verified 04/26/21 15:49 Remember erythromycin base Allergy Cannot Verified 04/26/21 15:49 [Erythromycin Base] Remember folic acid Allergy Other Verified 04/26/21 15:49 ibuprofen Allergy Cannot Verified 04/26/21 15:49 Remember magnesium hydroxide Allergy Cannot Verified 04/26/21 15:49 [From Milk of Magnesia] Remember magnesium hydroxide Allergy Cannot Verified 04/26/21 15:49 [From Milk of Magnesia] Remember Penicillins Allergy Cannot Verified 04/26/21 15:49 Remember sulfamethoxazole Allergy Cannot Verified 04/26/21 15:49 [From Bactrim] Remember trimethoprim [From Bactrim] Allergy Cannot Verified 04/26/21 15:49 Remember Home Meds: Home Meds Insulin Aspart [NovoLOG] 1 - 10 units SUBCUT QIDACANDBED 12/01/13 [History] Levothyroxine 125 mcg PO DAILY 12/01/13 [History] Multivitamin [Multi-Vitamin Daily] 1 each PO BID 12/01/13 [History] Aspirin 81 mg PO DAILY 03/13/15 [History] Denosumab [Prolia] 60 mg SUBCUT Q6M 03/13/15 [History] Fexofenadine/Pseudoephedrine [Tammy-D 24 Hour Tablet] 1 tab PO DAILY 06/08/16 [History] Potassium Chloride [Klor-Con 10] 10 meq PO BIDMEALS #60 tab.er 06/11/16 [Rx] Albuterol/Ipratropium [DuoNeb 3.0-0.5 MG/3 ML] 1 ampule INH QID PRN 04/26/18 [History] Fluticasone Propionate [Flonase Allergy Relief] 2 inh NASBOTH DAILY 04/26/18 [History] Carboxymethylcellulose Sodium [Refresh Tears] 1 drop EYEBOTH TID 08/22/18 [History] Insulin Degludec [Tresiba] 27 units SQ DAILY 09/04/18 [History] Nystatin 1 applic TOP BID 09/04/18 [History] Sodium Chloride [Everson Saline] 1 spray KRUPA Q12H PRN 09/04/18 [History] Acetaminophen [Pain Relief] 1,000 mg PO BID 12/02/19 [History] Donepezil HCl [Aricept] 5 mg PO BEDTIME 12/02/19 [History] nitrofurantoin macrocrystaL [Nitrofurantoin] 100 mg PO DAILY 12/25/19 [History] Nystatin [Nystatin Crm] 15 gm TOP BID PRN 12/26/19 [History] Past Medical History HEENT History: Reports: Allergic Rhinitis, Other (See Below) Other HEENT History: dry eyes Cardiovascular History: Reports: Heart Failure, High Cholesterol, Hypertension, Other (See Below) Other Cardiovascular History: CVA Gastrointestinal History: Reports: Chronic Diarrhea, GERD Other Gastrointestinal History: reflux Genitourinary History: Reports: Other (See Below) Other Genitourinary History: yeast infections Musculoskeletal History: Reports: Osteoarthritis, Osteoporosis Other Musculoskeletal History: tibial plateau fracture in May 2014. Surgical repair by Dr. Macedo at [facility]. Patient resumed weight bearing with ambultation November 2013. Neurological History: Reports: CVA Psychiatric History: Reports: Developmental Delay, Other (See Below) Other Psychiatric History: downs syndrome Endocrine/Metabolic History: Reports: Diabetes, Type II, Hypothyroidism, Other (See Below) Other Endocrine/Metabolic History: Diabetes Type 1.5 Hematologic History: Reports: Anemia Dermatologic History: Reports: Cellulitis - Infectious Disease History Infectious Disease History: Reports: C-Difficile, Hepatitis B, MRSA - Past Surgical History HEENT Surgical History: Reports: Adenoidectomy, Tonsillectomy Cardiovascular Surgical History: Reports: Other (See Below) Other Cardiovascular Surgeries/Procedures: breathing problems Other Musculoskeletal Surgeries/Procedures:: Tib Fib repair to right leg Social & Family History - Family History Family Medical History: No Pertinent Family History - Tobacco Use Tobacco Use Status *Q: Never Tobacco User Second Hand Smoke Exposure: No - Caffeine Use Caffeine Use: Reports: None - Recreational Drug Use Recreational Drug Use: No - Living Situation & Occupation Living situation: Reports: Single, Other ([facility]) Occupation: Disabled ED ROS GENERAL - Review of Systems Review Of Systems: Unable To Obtain Reason Not Obtained: developmental disability. Information gleaned from staff ED EXAM, GENERAL - Physical Exam Exam: See Below Exam Limited By: No Limitations General Appearance: Alert, WD/WN, No Apparent Distress Ears: Normal External Exam, Normal TMs Nose: Normal Inspection, Normal Mucosa, No Blood Throat/Mouth: Normal Inspection, Normal Oropharynx Head: Normocephalic Neck: Normal Inspection, Supple, Non-Tender Respiratory/Chest: No Respiratory Distress, Lungs Clear, Normal Breath Sounds Cardiovascular: Regular Rate, Rhythm GI/Abdominal: Normal Bowel Sounds, Soft, Non-Tender Extremities: Other (venous stasis changes to legs, extremities cool to the touch) Neurological: Alert, Other (cooperative) Skin Exam: Cool Lymphatic: Other Course - Vital Signs Last Recorded V/S: Last Vital Signs Temp 98.1 F 04/26/21 15:44 Pulse 73 04/26/21 15:44 Resp 14 04/26/21 15:44 BP 144/69 H 04/26/21 15:44 Pulse Ox 97 04/26/21 15:44 - Orders/Labs/Meds Orders: Active Orders 24 hr Category Date Time Status C-REACTIVE PROTEIN [CHEM] Stat Lab 04/26/21 15:41 Ordered COMPREHENSIVE METABOLIC PN,CMP [CHEM] Stat Lab 04/26/21 15:41 Ordered CORONAVIRUS COVID-19 RAPID [MOLEC] Stat Lab 04/26/21 16:16 Ordered MAGNESIUM [CHEM] Stat Lab 04/26/21 15:41 Ordered UA W/MIRELA RFLX IF INDICATED [URIN] Stat Lab 04/26/21 15:41 Ordered Labs: Laboratory Tests 04/26/21 04/26/21 Range/Units 15:41 15:43 WBC 3.8 L (4.0-11.0) 10^3/uL RBC 4.29 (4.00-5.50) x10^6/uL Hgb 14.5 (12.0-16.0) g/dL Hct 43.6 (37.0-47.0) % MCV 101.6 H (83.0-97.0) fL MCH 33.8 H (27.0-32.0) pg MCHC 33.3 (32.0-36.0) g/dL RDW Coeff of Dav 13.6 (11.0-15.0) % Plt Count 218 (150-400) 10^3/uL Immature Gran % (Auto) 0.3 (0.0-4.9) % Neut % (Auto) 63.5 (41-71) % Lymph % (Auto) 28.0 (24-44) % Lumpkin % (Auto) 7.2 (0-10) % Eos % (Auto) 0.5 (0-6) % Baso % (Auto) 0.5 (0-1) % Neut # (Auto) 2.38 (1.80-8.00) x10^3/uL Lymph # (Auto) 1.05 (0.60-5.00) 10^3/uL [place]kin # (Auto) 0.27 (0.00-1.50) 10^3/uL Eos # (Auto) 0.02 (0.00-1.50) 10^3/uL Baso # (Auto) 0.02 (0.00-0.50) 10^3/uL Immature Gran # (Auto) 0.01 (0.00-0.49) 10^3/uL POC Glucose 145 H (75-105) mg/dL - Re-Assessments/Exams Free Text/Narrative Re-Assessment/Exam: 04/26/21 16:31 Trace leukocytes in urine, other labs quite unremarkable. 04/26/21 16:32 Will keep patient in observation, monitor sugars closely. D51/2 NS infusing. Departure - Departure Time of Disposition: 16:33 Disposition: Refer to Observation Condition: Fair Clinical Impression: Hypoglycemia - Discharge Information *PRESCRIPTION DRUG MONITORING PROGRAM REVIEWED*: No *COPY OF PRESCRIPTION DRUG MONITORING REPORT IN PATIENT NAVI: No Sepsis Event Note (ED) - Evaluation Sepsis Screening Result: No Definite Risk - Focused Exam Vital Signs: Vital Signs Temp Pulse Resp BP Pulse Ox 04/26/21 15:44 98.1 F 73 14 144/69 H 97 - Problem List & Annotations (1) Hypoglycemia SNOMED Code(s): 019816478 Code(s): E16.2 - HYPOGLYCEMIA, UNSPECIFIED Status: Acute Priority: High Current Visit: Yes - Problem List Review Problem List Initiated/Reviewed/Updated: Yes - My Orders Last 24 Hours: My Active Orders 04/26/21 15:41 C-REACTIVE PROTEIN [CHEM] Stat COMPREHENSIVE METABOLIC PN,CMP [CHEM] Stat MAGNESIUM [CHEM] Stat UA W/MIRELA RFLX IF INDICATED [URIN] Stat 04/26/21 16:16 CORONAVIRUS COVID-19 RAPID [MOLEC] Stat - Assessment/Plan Admission H&P: Please use this note as an admission H&P Last 24 Hours: My Active Orders 04/26/21 15:41 C-REACTIVE PROTEIN [CHEM] Stat COMPREHENSIVE METABOLIC PN,CMP [CHEM] Stat MAGNESIUM [CHEM] Stat UA W/MIRELA RFLX IF INDICATED [URIN] Stat 04/26/21 16:16 CORONAVIRUS COVID-19 RAPID [MOLEC] Stat Assessment:: Hypoglycemia Vulnerable Adult Plan: Will admit observation, monitor blood glucose closely. D51/2 NS infusing until taking more in orally. Sister aware of admission
[2021-04-26] MEDS ORDERED: Dextrose 5%-0.45% NaCl 1,000 ML IV SCH (16:30)
[2021-04-26] MEDS ORDERED: Albuterol/Ipratropium 3.0-0.5 MG/3 ML Neb Soln INH PRN (16:39)
[2021-04-26] MEDS ORDERED: Ondansetron 4 MG Tab.DIS PO PRN (17:00)
[2021-04-26] MEDS ORDERED: Ondansetron 4 MG/2 ML SDV IV PRN (17:00)
[2021-04-26] MEDS ORDERED: Potassium Chloride 10 MEQ Tab.ER PO SCH (17:30)
[2021-04-26] MEDS: Melatonin 3 MG Tab PO SCH (19:45)
[2021-04-26] MEDS: Acetaminophen 500 MG Tab PO SCH (19:45)
[2021-04-26] MEDS: atorvaSTATin 10 MG Tab **OWN MED PO SCH (19:46)
[2021-04-26] MEDS: DONEPEZIL 5 MG PO SCH (19:47)
[2021-04-26] MEDS: Nystatin Crm 30 GM Tube TOP SCH (19:53)
[2021-04-26] MEDS ORDERED: Non-Formulary Medication 1 Each (Carboxymethylcellulose Sodium [Refresh Tears] 15 ML Drops EYEBOTH SCH ×2 (20:00)
[2021-04-26] MEDS ORDERED: atorvaSTATin 10 MG Tab PO SCH (20:00)
[2021-04-27] MEDS ORDERED: Levothyroxine 125 MCG Tab PO SCH (08:00)
[2021-04-27] MEDS ORDERED: Nitrofurantoin Monohydrate/Macrocrystalline 100 MG Cap PO SCH (08:00)
[2021-04-27] MEDS ORDERED: Glucagon,Human Recombinant 1 MG Vial IM PRN ×2 (08:07→20:11)
[2021-04-27] MEDS ORDERED: 50% Dextrose in Water 50 ML Syringe IVPUSH PRN ×2 (08:07→20:11)
[2021-04-27] MEDS: Aspirin 81 MG Tab.EC PO SCH (08:22)
[2021-04-27] MEDS: Acetaminophen 500 MG Tab PO SCH ×2 (08:22→19:25)
[2021-04-27] MEDS: Insulin Lispro 100 Units/ML 3 ML Vial SUBCUT SCH ×3 (08:22→17:29)
[2021-04-27] MEDS: Nystatin Crm 30 GM Tube TOP SCH ×2 (08:23→20:26)
[2021-04-27] MEDS: Insulin Glarg,Human.Rec.Analog 100 Unit/ML SUBCUT SCH (08:30)
[2021-04-27] MEDS: POTASSIUM CHLORIDE 10 MEQ PO SCH ×2 (08:32→17:47)
[2021-04-27] MEDS: Nitrofurantoin Monohydrate/Macrocrystalline 100 MG Cap **PTOM PO SCH (08:33)
--- NOTE | 2021-04-27 10:51 | PN ---
DATE: 04/27/2021 S: Ms. Dutton was admitted for hypoglycemia. She has had these issues in the past whenever she has poor intake. She was found with a blood sugar of 42, was given an amp of D50 I think by [address] [place] [address] staff and her blood sugars did come up nicely. She was up in the 150s when Aleyda Robin PA-C, evaluated her. She put her in for observation. She has had Accu-Cheks up in the 300s now. O: GENERAL: She is alert and in her usual state. NECK: Veins are flat. LUNGS: Sounds clear. CARDIAC: Tones are regular. ABDOMEN: Soft and nontender. EXTREMITIES: She has no peripheral edema. ASSESSMENT: 1. HYPOGLYCEMIA. 2. TYPE 2 DIABETES, REQUIRING INSULIN. 3. HYPOTHYROIDISM. 4. HYPERLIPIDEMIA. 5. DEMENTIA. 6. DOWN SYNDROME. P: Plan is to start her back on her long-acting insulin. We will continue with q.i.d. Accu-Cheks. We are going to give her half of her typical NovoLog dose with meals, and we will see how she does today. She should be ready for discharge tomorrow. SAFIA/CAROL ANN /[id number]
[2021-04-27] MEDS: atorvaSTATin 10 MG Tab **OWN MED PO SCH (19:25)
[2021-04-27] MEDS: DONEPEZIL 5 MG PO SCH (19:25)
[2021-04-27] MEDS: Melatonin 3 MG Tab PO SCH (19:25)
[2021-04-27] MEDS ORDERED: Insulin Lispro 100 Units/ML 3 ML Vial SUBCUT ONE (20:20)
[2021-04-28] MEDS: Aspirin 81 MG Tab.EC PO SCH (07:29)
[2021-04-28] MEDS: Acetaminophen 500 MG Tab PO SCH (07:29)
[2021-04-28] MEDS: Insulin Glarg,Human.Rec.Analog 100 Unit/ML SUBCUT SCH (07:39)
[2021-04-28] MEDS: Nitrofurantoin Monohydrate/Macrocrystalline 100 MG Cap **PTOM PO SCH (07:44)
[2021-04-28] MEDS: POTASSIUM CHLORIDE 10 MEQ PO SCH (07:46)
[2021-04-28] MEDS: Insulin Lispro 100 Units/ML 3 ML Vial SUBCUT SCH (08:04)
[2021-04-28 09:34] VITALS: BP 159/83; PULSE 77
--- NOTE | 2021-04-28 10:44 | DISCH ---
ADMISSION DIAGNOSES: 1. Hypoglycemic reaction. 2. Type 2 diabetes, requiring insulin. 3. Down syndrome with developmental delay. 4. Hypothyroidism. DISCHARGE DIAGNOSIS: 1. HYPOGLYCEMIC REACTION. 2. TYPE 2 DIABETES, REQUIRING INSULIN. 3. DOWN SYNDROME WITH DEVELOPMENTAL DELAY. 4. HYPOTHYROIDISM. HISTORY: The patient is a [address] [place] [address] resident with known history of Down syndrome. She suffers from very labile diabetes, requiring insulin. She has had issues with hypoglycemia in her past. She presented with a blood sugar of [address] [place] [address] and ambulance was called. She had a blood sugar of 44. I gave her glucagon and she was brought to our facility. At that time, Triny Robin evaluated her. Her blood sugar was 150. By the time she got here, she was coming around nicely. She elected to put her in for observation and monitoring of her Accu-Cheks. HOSPITAL COURSE: The patient had a little low dose of NovoLog with meals. We cut her long-acting insulin down as well and she really did quite well when we started giving her back her Lantus. She did have another sugar at 47, but she was asymptomatic. Her NovoLog was held and her next blood sugar at the next meal was over 400. She has been running basically in the 200s since. We are going to cut back her dose of long-acting from 24 to 12 and decrease her Humalog to 4 to 5 units with meals instead of 1 to 10. She will need Accu-Cheks q.i.d. for the next week or two, and she should present back to her primary care provider, Daxa Henderson for followup on her Accu-Cheks. COMPLICATIONS: During her stay were none. CONSULTATIONS: None. DISPOSITION: Discharged home to [address] [place] [address]. HARMONY /[id number]
== END 2021-04-28 11:30 | disposition home or self-care (01) ==
LOC: CC.ED 15:40 → CC.MS 16:36 → UNDOADMOB 16:48 → CC.MS 16:48 → CC.ED 16:48
PROVIDERS: ADMIT Physician Assistant Medical; ATTEND Family Medicine
DX: E11.649 Type 2 diabetes mellitus with hypoglycemia without coma (principal); T38.3X5A Adverse effect of insulin and oral hypoglycemic [antidiabetic] drugs, initial encounter; I11.0 Hypertensive heart disease with heart failure; I50.9 Heart failure, unspecified; E78.00 Pure hypercholesterolemia, unspecified; E03.9 Hypothyroidism, unspecified; Z98.890 Other specified postprocedural states; Z88.8 Allergy status to other drugs, medicaments and biological substances; Z88.0 Allergy status to penicillin; Z79.4 Long term (current) use of insulin; Z79.899 Other long term (current) drug therapy; Q90.9 Down syndrome, unspecified; Z20.822 Contact with and (suspected) exposure to COVID-19
CPT/HCPCS: 36415; 80048; 80053; 81003; 82947; 83735; 85025; 86140; 87086; 99285-25; A9270-GY; G0378; J1815-GY; J7042; U0002

== ENCOUNTER 2021-05-22 10:11 | Inpatient (IN) | payer MEDICARE, MEDICAID ==
[2021-05-22 11:07] LABS: CORONAVIRUS COVID-19 NAA NEGATIVE (NEGATIVE); RESPIRATORY SYNCYTIAL VIR NAA POSITIVE (NEGATIVE)
[2021-05-22] MEDS ORDERED: Albuterol/Ipratropium 3.0-0.5 MG/3 ML Neb Soln NEB PRN (11:30)
[2021-05-22] MEDS ORDERED: Ondansetron 4 MG/2 ML SDV IV PRN (11:30)
[2021-05-22] MEDS ORDERED: Ondansetron 4 MG Tab.DIS PO PRN (11:30)
[2021-05-22] MEDS ORDERED: Acetaminophen 325 MG Tab PO PRN (11:30)
[2021-05-22] MEDS ORDERED: Sodium Chloride 0.9% 10 ML Syringe FLUSH PRN (11:30)
[2021-05-22 11:56] LABS: CHLORIDE,CL 100 mEq/L (98-106); SODIUM,NA 137 mEq/L (136-145)
[2021-05-22] MEDS ORDERED: Levofloxacin/Dextrose 5%-Water 500 MG in Premix Bag 1 BAG IV SCH (12:00)
[2021-05-22] MEDS: Albuterol/Ipratropium 3.0-0.5 MG/3 ML Neb Soln NEB SCH ×3 (12:16→19:26)
[2021-05-22] MEDS ORDERED: Iopamidol 755 Mg/ML 100 ML Bottle IVPUSH ONE (12:52)
[2021-05-22] MEDS: Sodium Chloride 0.9% 1,000 ML IV SCH (13:03)
[2021-05-22] MEDS: Levofloxacin/Dextrose 5%-Water 250 MG in Premix Bag 1 BAG IV SCH (13:05)
[2021-05-22] MEDS ORDERED: Nystatin Crm 30 GM Tube TOP PRN (13:37)
[2021-05-22] MEDS ORDERED: Glucagon,Human Recombinant 1 MG Vial IM PRN (13:39)
[2021-05-22] MEDS ORDERED: 50% Dextrose in Water 50 ML Syringe IVPUSH PRN (13:39)
[2021-05-22] MEDS ORDERED: Polyvinyl Alcohol 1.4% Ophth Soln 15 ML Bottle EYEBOTH PRN (14:14)
[2021-05-22] MEDS: Acetaminophen 500 MG Tab PO SCH ×2 (15:55→19:26)
[2021-05-22] MEDS: Potassium Chloride 10 MEQ Tab.ER PO SCH (17:11)
[2021-05-22] MEDS: Insulin Lispro 100 Units/ML 3 ML Vial SUBCUT SCH ×2 (17:18→21:03)
[2021-05-22] MEDS: Donepezil 5 MG Tab PO SCH (19:26)
[2021-05-22] MEDS: atorvaSTATin 10 MG Tab PO SCH (19:26)
[2021-05-22] MEDS: Nystatin Topical Powder 15 GM Bottle TOP SCH (19:27)
[2021-05-22] MEDS: Insulin Glarg,Human.Rec.Analog 100 Unit/ML SUBCUT SCH (20:57)
[2021-05-23] MEDS: Codeine/Promethazine 10-6.25 MG/5 ML Syrup 5 ML UD Cup PO PRN ×2 (00:55→22:15)
[2021-05-23] MEDS: Sodium Chloride 0.9% 1,000 ML IV SCH ×2 (01:02→15:32)
[2021-05-23] MEDS: Levothyroxine 125 MCG Tab PO SCH (07:07)
[2021-05-23] MEDS: Potassium Chloride 10 MEQ Tab.ER PO SCH ×2 (07:07→16:30)
[2021-05-23] MEDS: Acetaminophen 500 MG Tab PO SCH ×3 (07:07→19:29)
[2021-05-23] MEDS: Albuterol/Ipratropium 3.0-0.5 MG/3 ML Neb Soln NEB SCH ×4 (07:07→19:29)
[2021-05-23] MEDS: Aspirin 81 MG Tab.EC PO SCH (07:07)
[2021-05-23] MEDS ORDERED: Glucagon,Human Recombinant 1 MG Vial IM PRN (09:18)
[2021-05-23] MEDS ORDERED: 50% Dextrose in Water 50 ML Syringe IVPUSH PRN (09:18)
[2021-05-23] MEDS ORDERED: Insulin Lispro 100 Units/ML 3 ML Vial SUBCUT ONE (09:45)
[2021-05-23] MEDS: Insulin Glarg,Human.Rec.Analog 100 Unit/ML SUBCUT SCH ×2 (10:01→20:00)
[2021-05-23] MEDS: Nystatin Topical Powder 15 GM Bottle TOP SCH ×2 (10:28→23:56)
[2021-05-23] MEDS: Insulin Lispro 100 Units/ML 3 ML Vial SUBCUT SCH ×4 (10:46→20:01)
--- NOTE | 2021-05-23 11:08 | PCM.PN ---
- General Info Date of Service: 05/23/21 Admission Dx/Problem (Free Text): RLL pneumonia RSV Subjective Update: Linda is resting quietly at present. Sister states she has had a restless night. No oxygen on at this point as was fighting it. Sister relates that they "either had to save the IV or take off the oxygen as she wasn't tolerating them well". Does appear to be breathing easier than yesterday. Less sinus drainage and noisy breathing. Low grade temps. Blood pressure stable. Has had very little oral intake since admission. Functional Status: Denies: Tolerating Diet, Ambulating - Review of Systems General: Reports: Fever, Weakness, Fatigue, Malaise, Other (ROS obtained per nurse) HEENT: Reports: Sinus Congestion, Rhinitis Pulmonary: Reports: Cough Gastrointestinal: Denies: Nausea, Vomiting Genitourinary: Reports: Incontinence Neurological: Reports: Weakness - Patient Data Vitals - Most Recent: Last Vital Signs Temp 97.8 F 05/23/21 08:00 Pulse 107 H 05/23/21 08:00 Resp 20 05/23/21 08:00 BP 147/57 H 05/23/21 08:00 Pulse Ox 90 L 05/23/21 08:00 Weight - Most Recent: 129 lb 1.6 oz I&O - Last 24 Hours: Intake & Output 05/22/21 05/23/21 05/23/21 22:59 06:59 14:59 Intake Total 200 1299 Balance 200 1299 Lab Results Last 24 Hours: Laboratory Results - last 24 hr 05/22/21 05/22/21 05/22/21 Range/Units 11:07 11:16 11:16 WBC 29.1 H* (4.0-11.0) 10^3/uL RBC 4.20 (4.00-5.50) x10^6/uL Hgb 14.1 (12.0-16.0) g/dL Hct 42.6 (37.0-47.0) % MCV 101.4 H (83.0-97.0) fL MCH 33.6 H (27.0-32.0) pg MCHC 33.1 (32.0-36.0) g/dL RDW Coeff of Dav 13.5 (11.0-15.0) % Plt Count 229 (150-400) 10^3/uL Immature Gran % (Auto) (0.0-4.9) % Neut % (Auto) (41-71) % Lymph % (Auto) (24-44) % [place] % (Auto) (0-10) % Eos % (Auto) (0-6) % Baso % (Auto) (0-1) % Neut # (Auto) (1.80-8.00) x10^3/uL Lymph # (Auto) (0.60-5.00) 10^3/uL [place] # (Auto) (0.00-1.50) 10^3/uL Eos # (Auto) (0.00-1.50) 10^3/uL Baso # (Auto) (0.00-0.50) 10^3/uL Immature Gran # (Auto) (0.00-0.49) 10^3/uL Add Manual Diff Yes Neutrophils % (Manual) 82 (35-85) % Band Neutrophils % 10 H (0-5) % Lymphocytes % (Manual) 3 L (21-55) % Monocytes % (Manual) 5 (2-12) % D-Dimer, Quantitative 2.51 H (0.00-0.50) Sodium (136-145) mEq/L Potassium (3.5-5.0) mEq/L Chloride (98-106) mEq/L Carbon Dioxide (21-32) mmol/L BUN (7-18) mg/dL Creatinine (0.6-1.0) mg/dL Est Cr Clr Drug Dosing Estimated GFR (MDRD) (>=60) mL/min Glucose (75-99) mg/dL POC Glucose (75-105) mg/dL Lactic Acid (0.4-2.0) mmol/L Calcium (8.4-10.1) mg/dL Total Bilirubin (0.0-1.0) mg/dL AST (15-37) U/L ALT (12-78) U/L Alkaline Phosphatase (46-116) U/L C-Reactive Protein (0.2-0.8) mg/dL NT-Pro-B Natriuret Pep (0-1000) pg/mL Total Protein (6.4-8.2) g/dL Albumin (3.4-5.0) g/dL Influenza Type A RNA Negative (NEGATIVE) RSV RNA (INAAT) Positive H (NEGATIVE) Influenza Type B RNA Negative (NEGATIVE) SARS-CoV-2 RNA (CHUNG) Negative (NEGATIVE) 05/22/21 05/22/21 05/22/21 Range/Units 11:16 13:41 17:15 WBC (4.0-11.0) 10^3/uL RBC (4.00-5.50) x10^6/uL Hgb (12.0-16.0) g/dL Hct (37.0-47.0) % MCV (83.0-97.0) fL MCH (27.0-32.0) pg MCHC (32.0-36.0) g/dL RDW Coeff of Dav (11.0-15.0) % Plt Count (150-400) 10^3/uL Immature Gran % (Auto) (0.0-4.9) % Neut % (Auto) (41-71) % Lymph % (Auto) (24-44) % [place] % (Auto) (0-10) % Eos % (Auto) (0-6) % Baso % (Auto) (0-1) % Neut # (Auto) (1.80-8.00) x10^3/uL Lymph # (Auto) (0.60-5.00) 10^3/uL [place] # (Auto) (0.00-1.50) 10^3/uL Eos # (Auto) (0.00-1.50) 10^3/uL Baso # (Auto) (0.00-0.50) 10^3/uL Immature Gran # (Auto) (0.00-0.49) 10^3/uL Add Manual Diff Neutrophils % (Manual) (35-85) % Band Neutrophils % (0-5) % Lymphocytes % (Manual) (21-55) % Monocytes % (Manual) (2-12) % D-Dimer, Quantitative (0.00-0.50) Sodium 137 (136-145) mEq/L Potassium 4.8 (3.5-5.0) mEq/L Chloride 100 (98-106) mEq/L Carbon Dioxide 29 (21-32) mmol/L BUN 21 H (7-18) mg/dL Creatinine 1.6 H D (0.6-1.0) mg/dL Est Cr Clr Drug Dosing TNP Estimated GFR (MDRD) 33 L (>=60) mL/min Glucose 308 H* (75-99) mg/dL POC Glucose 311 H (75-105) mg/dL Lactic Acid 3.8 H (0.4-2.0) mmol/L Calcium 9.5 (8.4-10.1) mg/dL Total Bilirubin 0.5 (0.0-1.0) mg/dL AST 31 (15-37) U/L ALT 32 (12-78) U/L Alkaline Phosphatase 238 H (46-116) U/L C-Reactive Protein 38.3 H (0.2-0.8) mg/dL NT-Pro-B Natriuret Pep 1286 H (0-1000) pg/mL Total Protein 7.5 (6.4-8.2) g/dL Albumin 2.9 L (3.4-5.0) g/dL Influenza Type A RNA (NEGATIVE) RSV RNA (INAAT) (NEGATIVE) Influenza Type B RNA (NEGATIVE) SARS-CoV-2 RNA (CHUNG) (NEGATIVE) 05/22/21 05/23/21 05/23/21 Range/Units 20:46 07:55 07:55 WBC 21.6 H* (4.0-11.0) 10^3/uL RBC 3.62 L (4.00-5.50) x10^6/uL Hgb 12.3 (12.0-16.0) g/dL Hct 36.6 L (37.0-47.0) % MCV 101.1 H (83.0-97.0) fL MCH 34.0 H (27.0-32.0) pg MCHC 33.6 (32.0-36.0) g/dL RDW Coeff of Dav 13.6 (11.0-15.0) % Plt Count 186 (150-400) 10^3/uL Immature Gran % (Auto) 0.3 (0.0-4.9) % Neut % (Auto) 89.8 H (41-71) % Lymph % (Auto) 5.1 L (24-44) % [place] % (Auto) 4.7 (0-10) % Eos % (Auto) 0.0 (0-6) % Baso % (Auto) 0.1 (0-1) % Neut # (Auto) 19.43 H (1.80-8.00) x10^3/uL Lymph # (Auto) 1.11 (0.60-5.00) 10^3/uL [place] # (Auto) 1.01 (0.00-1.50) 10^3/uL Eos # (Auto) 0.00 (0.00-1.50) 10^3/uL Baso # (Auto) 0.02 (0.00-0.50) 10^3/uL Immature Gran # (Auto) 0.07 (0.00-0.49) 10^3/uL Add Manual Diff Neutrophils % (Manual) (35-85) % Band Neutrophils % (0-5) % Lymphocytes % (Manual) (21-55) % Monocytes % (Manual) (2-12) % D-Dimer, Quantitative (0.00-0.50) Sodium 140 (136-145) mEq/L Potassium 5.1 H (3.5-5.0) mEq/L Chloride 105 (98-106) mEq/L Carbon Dioxide 26 (21-32) mmol/L BUN 15 (7-18) mg/dL Creatinine 1.2 H (0.6-1.0) mg/dL Est Cr Clr Drug Dosing 34.47 Estimated GFR (MDRD) 45 L (>=60) mL/min Glucose 331 H* (75-99) mg/dL POC Glucose 196 H (75-105) mg/dL Lactic Acid (0.4-2.0) mmol/L Calcium 8.0 L (8.4-10.1) mg/dL Total Bilirubin (0.0-1.0) mg/dL AST (15-37) U/L ALT (12-78) U/L Alkaline Phosphatase (46-116) U/L C-Reactive Protein 32.6 H (0.2-0.8) mg/dL NT-Pro-B Natriuret Pep (0-1000) pg/mL Total Protein (6.4-8.2) g/dL Albumin (3.4-5.0) g/dL Influenza Type A RNA (NEGATIVE) RSV RNA (INAAT) (NEGATIVE) Influenza Type B RNA (NEGATIVE) SARS-CoV-2 RNA (CHUNG) (NEGATIVE) 05/23/21 Range/Units 07:56 WBC (4.0-11.0) 10^3/uL RBC (4.00-5.50) x10^6/uL Hgb (12.0-16.0) g/dL Hct (37.0-47.0) % MCV (83.0-97.0) fL MCH (27.0-32.0) pg MCHC (32.0-36.0) g/dL RDW Coeff of Dav (11.0-15.0) % Plt Count (150-400) 10^3/uL Immature Gran % (Auto) (0.0-4.9) % Neut % (Auto) (41-71) % Lymph % (Auto) (24-44) % [place] % (Auto) (0-10) % Eos % (Auto) (0-6) % Baso % (Auto) (0-1) % Neut # (Auto) (1.80-8.00) x10^3/uL Lymph # (Auto) (0.60-5.00) 10^3/uL [place] # (Auto) (0.00-1.50) 10^3/uL Eos # (Auto) (0.00-1.50) 10^3/uL Baso # (Auto) (0.00-0.50) 10^3/uL Immature Gran # (Auto) (0.00-0.49) 10^3/uL Add Manual Diff Neutrophils % (Manual) (35-85) % Band Neutrophils % (0-5) % Lymphocytes % (Manual) (21-55) % Monocytes % (Manual) (2-12) % D-Dimer, Quantitative (0.00-0.50) Sodium (136-145) mEq/L Potassium (3.5-5.0) mEq/L Chloride (98-106) mEq/L Carbon Dioxide (21-32) mmol/L BUN (7-18) mg/dL Creatinine (0.6-1.0) mg/dL Est Cr Clr Drug Dosing Estimated GFR (MDRD) (>=60) mL/min Glucose (75-99) mg/dL POC Glucose (75-105) mg/dL Lactic Acid 1.3 (0.4-2.0) mmol/L Calcium (8.4-10.1) mg/dL Total Bilirubin (0.0-1.0) mg/dL AST (15-37) U/L ALT (12-78) U/L Alkaline Phosphatase (46-116) U/L C-Reactive Protein (0.2-0.8) mg/dL NT-Pro-B Natriuret Pep (0-1000) pg/mL Total Protein (6.4-8.2) g/dL Albumin (3.4-5.0) g/dL Influenza Type A RNA (NEGATIVE) RSV RNA (INAAT) (NEGATIVE) Influenza Type B RNA (NEGATIVE) SARS-CoV-2 RNA (CHUNG) (NEGATIVE) Med Orders - Current: Current Medications Acetaminophen (Acetaminophen 325 Mg Tab) 650 mg PO Q4H PRN PRN Reason: Pain (Mild 1-3)/fever Acetaminophen (Acetaminophen 500 Mg Tab) 1,000 mg PO TID [facility] Last Admin: 05/23/21 07:07 Dose: 1,000 mg Documented by: Albuterol/Ipratropium (Albuterol/Ipratropium 3.0-0.5 Mg/3 Ml Neb Soln) 3 ml NEB QIDRT [facility] Last Admin: 05/23/21 07:07 Dose: 3 ml Documented by: Albuterol/Ipratropium (Albuterol/Ipratropium 3.0-0.5 Mg/3 Ml Neb Soln) 3 ml NEB Q4H PRN PRN Reason: Dyspnea Artificial Tears (Polyvinyl Alcohol 1.4% Ophth Soln 15 Ml Bottle) 0 ml EYEBOTH TID PRN PRN Reason: Dry Eyes Aspirin (Aspirin 81 Mg Tab.Ec) 81 mg PO DAILY [facility] Last Admin: 05/23/21 07:07 Dose: 81 mg Documented by: Atorvastatin Calcium (Atorvastatin 10 Mg Tab) 10 mg PO BEDTIME [facility] Last Admin: 05/22/21 19:26 Dose: 10 mg Documented by: Dextrose/Water (50% Dextrose In Water 50 Ml Syringe) 50 ml IVPUSH ASDIRECTED PRN PRN Reason: Hypoglycemia Donepezil HCl (Donepezil 5 Mg Tab) 5 mg PO BEDTIME [facility] Last Admin: 05/22/21 19:26 Dose: 5 mg Documented by: Glucagon (Glucagon,Human Recombinant 1 Mg Vial) 1 mg IM ASDIRECTED PRN PRN Reason: Hypoglycemia Sodium Chloride (Normal Saline) 1,000 mls @ 75 mls/hr IV ASDIRECTED [facility] Last Admin: 05/23/21 01:02 Dose: 75 mls/hr Documented by: Levofloxacin/Dextrose 250 mg/ (Premix) 50 mls @ 50 mls/hr IV Q24H [facility] Last Admin: 05/22/21 13:05 Dose: 50 mls/hr Documented by: Insulin Glargine (Insulin Glarg,Human.Rec.Analog 100 Unit/Ml) 11 unit SUBCUT BID [facility] Last Admin: 05/23/21 10:01 Dose: 11 unit Documented by: Insulin Human Lispro (Insulin Lispro 100 Units/Ml 3 Ml Vial) 0 unit SUBCUT WITHMEALSANDBED [facility]; Protocol Levothyroxine Sodium (Levothyroxine 125 Mcg Tab) 125 mcg PO DAILY [facility] Last Admin: 05/23/21 07:07 Dose: 125 mcg Documented by: Nystatin (Nystatin Topical Powder 15 Gm Bottle) 0 gm TOP BID [facility] Last Admin: 05/23/21 10:28 Dose: 1 gram Documented by: Nystatin (Nystatin Crm 30 Gm Tube) 0 gm TOP BID PRN PRN Reason: Rash Ondansetron HCl (Ondansetron 4 Mg/2 Ml Sdv) 4 mg IV Q4H PRN PRN Reason: Nausea/Vomiting Ondansetron HCl (Ondansetron 4 Mg Tab.Dis) 4 mg PO Q4H PRN PRN Reason: nausea, able to take PO Potassium Chloride (Potassium Chloride 10 Meq Tab.Er) 10 meq PO BIDMEALS [facility] Last Admin: 05/23/21 07:07 Dose: 10 meq Documented by: Promethazine HCl/Codeine (Codeine/Promethazine 10-6.25 Mg/5 Ml Syrup 5 Ml Ud Cup) 5 - 10 ml PO Q6H PRN PRN Reason: Cough Last Admin: 05/23/21 00:55 Dose: 10 ml Documented by: Sodium Chloride (Sodium Chloride 0.9% 10 Ml Syringe) 10 ml FLUSH ASDIRECTED PRN PRN Reason: Keep Vein Open Discontinued Medications Dextrose/Water (50% Dextrose In Water 50 Ml Syringe) 50 ml IVPUSH ASDIRECTED PRN PRN Reason: Hypoglycemia Glucagon (Glucagon,Human Recombinant 1 Mg Vial) 1 mg IM ASDIRECTED PRN PRN Reason: Hypoglycemia Insulin Human Lispro (Insulin Lispro 100 Units/Ml 3 Ml Vial) 0 unit SUBCUT WITH MEALSANDBED KAYLEE; Protocol Last Admin: 05/23/21 10:46 Dose: Not Given Documented by: Insulin Human Lispro (Insulin Lispro 100 Units/Ml 3 Ml Vial) 0 unit SUBCUT ONETIME ONE; Protocol Stop: 05/23/21 09:46 Last Admin: 05/23/21 10:02 Dose: Not Given Documented by: Iopamidol (Iopamidol 755 Mg/Ml 100 Ml Bottle) 100 ml IVPUSH ONETIME ONE Stop: 05/22/21 12:53 Last Admin: 05/22/21 14:57 Dose: 100 ml Documented by: - Exam General: Other (sleepy) HEENT: Other (dry mucous membranes) Neck: Supple Lungs: Decreased Breath Sounds Cardiovascular: Regular Rate, Regular Rhythm GI/Abdominal Exam: Normal Bowel Sounds, Soft Extremities: Normal Inspection, No Pedal Edema, Other (hands and feet are dusky colored but warm to touch) Skin: Warm, Dry Neurological: No New Focal Deficit - Patient Data Lab Results Last 24 hrs: Laboratory Results - last 24 hr 05/22/21 05/22/21 05/22/21 Range/Units 11:07 11:16 11:16 WBC 29.1 H* (4.0-11.0) 10^3/uL RBC 4.20 (4.00-5.50) x10^6/uL Hgb 14.1 (12.0-16.0) g/dL Hct 42.6 (37.0-47.0) % MCV 101.4 H (83.0-97.0) fL MCH 33.6 H (27.0-32.0) pg MCHC 33.1 (32.0-36.0) g/dL RDW Coeff of Dav 13.5 (11.0-15.0) % Plt Count 229 (150-400) 10^3/uL Immature Gran % (Auto) (0.0-4.9) % Neut % (Auto) (41-71) % Lymph % (Auto) (24-44) % [place] % (Auto) (0-10) % Eos % (Auto) (0-6) % Baso % (Auto) (0-1) % Neut # (Auto) (1.80-8.00) x10^3/uL Lymph # (Auto) (0.60-5.00) 10^3/uL [place] # (Auto) (0.00-1.50) 10^3/uL Eos # (Auto) (0.00-1.50) 10^3/uL Baso # (Auto) (0.00-0.50) 10^3/uL Immature Gran # (Auto) (0.00-0.49) 10^3/uL Add Manual Diff Yes Neutrophils % (Manual) 82 (35-85) % Band Neutrophils % 10 H (0-5) % Lymphocytes % (Manual) 3 L (21-55) % Monocytes % (Manual) 5 (2-12) % D-Dimer, Quantitative 2.51 H (0.00-0.50) Sodium (136-145) mEq/L Potassium (3.5-5.0) mEq/L Chloride (98-106) mEq/L Carbon Dioxide (21-32) mmol/L BUN (7-18) mg/dL Creatinine (0.6-1.0) mg/dL Est Cr Clr Drug Dosing Estimated GFR (MDRD) (>=60) mL/min Glucose (75-99) mg/dL POC Glucose (75-105) mg/dL Lactic Acid (0.4-2.0) mmol/L Calcium (8.4-10.1) mg/dL Total Bilirubin (0.0-1.0) mg/dL AST (15-37) U/L ALT (12-78) U/L Alkaline Phosphatase (46-116) U/L C-Reactive Protein (0.2-0.8) mg/dL NT-Pro-B Natriuret Pep (0-1000) pg/mL Total Protein (6.4-8.2) g/dL Albumin (3.4-5.0) g/dL Influenza Type A RNA Negative (NEGATIVE) RSV RNA (INAAT) Positive H (NEGATIVE) Influenza Type B RNA Negative (NEGATIVE) SARS-CoV-2 RNA (CHUNG) Negative (NEGATIVE) 05/22/21 05/22/21 05/22/21 Range/Units 11:16 13:41 17:15 WBC (4.0-11.0) 10^3/uL RBC (4.00-5.50) x10^6/uL Hgb (12.0-16.0) g/dL Hct (37.0-47.0) % MCV (83.0-97.0) fL MCH (27.0-32.0) pg MCHC (32.0-36.0) g/dL RDW Coeff of Dav (11.0-15.0) % Plt Count (150-400) 10^3/uL Immature Gran % (Auto) (0.0-4.9) % Neut % (Auto) (41-71) % Lymph % (Auto) (24-44) % [place] % (Auto) (0-10) % Eos % (Auto) (0-6) % Baso % (Auto) (0-1) % Neut # (Auto) (1.80-8.00) x10^3/uL Lymph # (Auto) (0.60-5.00) 10^3/uL [place] # (Auto) (0.00-1.50) 10^3/uL Eos # (Auto) (0.00-1.50) 10^3/uL Baso # (Auto) (0.00-0.50) 10^3/uL Immature Gran # (Auto) (0.00-0.49) 10^3/uL Add Manual Diff Neutrophils % (Manual) (35-85) % Band Neutrophils % (0-5) % Lymphocytes % (Manual) (21-55) % Monocytes % (Manual) (2-12) % D-Dimer, Quantitative (0.00-0.50) Sodium 137 (136-145) mEq/L Potassium 4.8 (3.5-5.0) mEq/L Chloride 100 (98-106) mEq/L Carbon Dioxide 29 (21-32) mmol/L BUN 21 H (7-18) mg/dL Creatinine 1.6 H D (0.6-1.0) mg/dL Est Cr Clr Drug Dosing TNP Estimated GFR (MDRD) 33 L (>=60) mL/min Glucose 308 H* (75-99) mg/dL POC Glucose 311 H (75-105) mg/dL Lactic Acid 3.8 H (0.4-2.0) mmol/L Calcium 9.5 (8.4-10.1) mg/dL Total Bilirubin 0.5 (0.0-1.0) mg/dL AST 31 (15-37) U/L ALT 32 (12-78) U/L Alkaline Phosphatase 238 H (46-116) U/L C-Reactive Protein 38.3 H (0.2-0.8) mg/dL NT-Pro-B Natriuret Pep 1286 H (0-1000) pg/mL Total Protein 7.5 (6.4-8.2) g/dL Albumin 2.9 L (3.4-5.0) g/dL Influenza Type A RNA (NEGATIVE) RSV RNA (INAAT) (NEGATIVE) Influenza Type B RNA (NEGATIVE) SARS-CoV-2 RNA (CHUNG) (NEGATIVE) 05/22/21 05/23/21 05/23/21 Range/Units 20:46 07:55 07:55 WBC 21.6 H* (4.0-11.0) 10^3/uL RBC 3.62 L (4.00-5.50) x10^6/uL Hgb 12.3 (12.0-16.0) g/dL Hct 36.6 L (37.0-47.0) % MCV 101.1 H (83.0-97.0) fL MCH 34.0 H (27.0-32.0) pg MCHC 33.6 (32.0-36.0) g/dL RDW Coeff of Dav 13.6 (11.0-15.0) % Plt Count 186 (150-400) 10^3/uL Immature Gran % (Auto) 0.3 (0.0-4.9) % Neut % (Auto) 89.8 H (41-71) % Lymph % (Auto) 5.1 L (24-44) % [place] % (Auto) 4.7 (0-10) % Eos % (Auto) 0.0 (0-6) % Baso % (Auto) 0.1 (0-1) % Neut # (Auto) 19.43 H (1.80-8.00) x10^3/uL Lymph # (Auto) 1.11 (0.60-5.00) 10^3/uL [place] # (Auto) 1.01 (0.00-1.50) 10^3/uL Eos # (Auto) 0.00 (0.00-1.50) 10^3/uL Baso # (Auto) 0.02 (0.00-0.50) 10^3/uL Immature Gran # (Auto) 0.07 (0.00-0.49) 10^3/uL Add Manual Diff Neutrophils % (Manual) (35-85) % Band Neutrophils % (0-5) % Lymphocytes % (Manual) (21-55) % Monocytes % (Manual) (2-12) % D-Dimer, Quantitative (0.00-0.50) Sodium 140 (136-145) mEq/L Potassium 5.1 H (3.5-5.0) mEq/L Chloride 105 (98-106) mEq/L Carbon Dioxide 26 (21-32) mmol/L BUN 15 (7-18) mg/dL Creatinine 1.2 H (0.6-1.0) mg/dL Est Cr Clr Drug Dosing 34.47 Estimated GFR (MDRD) 45 L (>=60) mL/min Glucose 331 H* (75-99) mg/dL POC Glucose 196 H (75-105) mg/dL Lactic Acid (0.4-2.0) mmol/L Calcium 8.0 L (8.4-10.1) mg/dL Total Bilirubin (0.0-1.0) mg/dL AST (15-37) U/L ALT (12-78) U/L Alkaline Phosphatase (46-116) U/L C-Reactive Protein 32.6 H (0.2-0.8) mg/dL NT-Pro-B Natriuret Pep (0-1000) pg/mL Total Protein (6.4-8.2) g/dL Albumin (3.4-5.0) g/dL Influenza Type A RNA (NEGATIVE) RSV RNA (INAAT) (NEGATIVE) Influenza Type B RNA (NEGATIVE) SARS-CoV-2 RNA (CHUNG) (NEGATIVE) 05/23/21 Range/Units 07:56 WBC (4.0-11.0) 10^3/uL RBC (4.00-5.50) x10^6/uL Hgb (12.0-16.0) g/dL Hct (37.0-47.0) % MCV (83.0-97.0) fL MCH (27.0-32.0) pg MCHC (32.0-36.0) g/dL RDW Coeff of Dav (11.0-15.0) % Plt Count (150-400) 10^3/uL Immature Gran % (Auto) (0.0-4.9) % Neut % (Auto) (41-71) % Lymph % (Auto) (24-44) % [place] % (Auto) (0-10) % Eos % (Auto) (0-6) % Baso % (Auto) (0-1) % Neut # (Auto) (1.80-8.00) x10^3/uL Lymph # (Auto) (0.60-5.00) 10^3/uL [place] # (Auto) (0.00-1.50) 10^3/uL Eos # (Auto) (0.00-1.50) 10^3/uL Baso # (Auto) (0.00-0.50) 10^3/uL Immature Gran # (Auto) (0.00-0.49) 10^3/uL Add Manual Diff Neutrophils % (Manual) (35-85) % Band Neutrophils % (0-5) % Lymphocytes % (Manual) (21-55) % Monocytes % (Manual) (2-12) % D-Dimer, Quantitative (0.00-0.50) Sodium (136-145) mEq/L Potassium (3.5-5.0) mEq/L Chloride (98-106) mEq/L Carbon Dioxide (21-32) mmol/L BUN (7-18) mg/dL Creatinine (0.6-1.0) mg/dL Est Cr Clr Drug Dosing Estimated GFR (MDRD) (>=60) mL/min Glucose (75-99) mg/dL POC Glucose (75-105) mg/dL Lactic Acid 1.3 (0.4-2.0) mmol/L Calcium (8.4-10.1) mg/dL Total Bilirubin (0.0-1.0) mg/dL AST (15-37) U/L ALT (12-78) U/L Alkaline Phosphatase (46-116) U/L C-Reactive Protein (0.2-0.8) mg/dL NT-Pro-B Natriuret Pep (0-1000) pg/mL Total Protein (6.4-8.2) g/dL Albumin (3.4-5.0) g/dL Influenza Type A RNA (NEGATIVE) RSV RNA (INAAT) (NEGATIVE) Influenza Type B RNA (NEGATIVE) SARS-CoV-2 RNA (CHUNG) (NEGATIVE) Result Diagrams: 05/23/21 07:55 05/23/21 07:55 Sepsis Event Note - Focused Exam Vital Signs: Vital Signs Temp Pulse Resp BP BP Pulse Ox 05/23/21 08:00 97.8 F 107 H 20 147/57 H 90 L 05/23/21 04:00 99.8 F 106 H 16 123/79 92 L 05/22/21 23:52 98.7 F 103 H 18 108/47 L 90 L - Problem List & Annotations (1) Pneumonia SNOMED Code(s): 715599574 Code(s): J18.9 - PNEUMONIA, UNSPECIFIED ORGANISM Status: Acute Priority: High Current Visit: Yes Qualifiers: Pneumonia type: due to other aerobic Gram-negative bacteria Laterality: right Lung location: lower lobe of lung Qualified Code(s): J15.6 - Pneumonia due to other Gram-negative bacteria - Problem List Review Problem List Initiated/Reviewed/Updated: Yes - My Orders Last 24 Hours: My Active Orders 05/22/21 11:16 Chest 2V [CR] Stat 05/22/21 11:30 Patient Status [ADT] Routine Oxygen Therapy [RC] 2355 Up With Assistance [RC] .PRN Vital Signs [RC] 0000,0400,0800,1200,1600,2000 CULTURE SPUTUM + SMEAR [RM] Routine Acetaminophen [TylenoL] 650 mg PO Q4H PRN Albuterol/Ipratropium [DuoNeb 3.0-0.5 MG/3 ML] 3 ml NEB Q4H PRN Ondansetron [Zofran ODT] 4 mg PO Q4H PRN Ondansetron [Zofran] 4 mg IV Q4H PRN Sodium Chloride 0.9% [Saline Flush] 10 ml FLUSH ASDIRECTED PRN Saline Lock Insert [OM.PC] Routine Resuscitation Status Routine 05/22/21 11:31 Intake and Output [RC] 0600,1800 05/22/21 11:32 RT Aerosol Therapy [RC] 0800,1200,1600,2000 05/22/21 Lunch Consistent Carbohydrate Diet [DIET] Albuterol/Ipratropium [DuoNeb 3.0-0.5 MG/3 ML] 3 ml NEB QIDRT 05/22/21 12:25 Blood Glucose Check, Bedside [] 0730,1130,1700,2030 Ang Chest [CT] Routine 05/22/21 12:30 Sodium Chloride 0.9% [Normal Saline] 1,000 ml IV ASDIRECTED 05/22/21 13:37 Nystatin [Nystatin Crm] 0 gm TOP BID PRN 05/22/21 14:00 Acetaminophen [Tylenol Extra Strength] 1,000 mg PO TID 05/22/21 14:14 Polyvinyl Alcohol [LiquiTears 1.4% Ophth Soln] 0 ml EYEBOTH TID PRN 05/22/21 17:30 Potassium Chloride [Klor-Con 10] 10 meq PO BIDMEALS 05/22/21 20:00 Donepezil [Aricept] 5 mg PO BEDTIME Insulin Glarg,Human.Rec.Analog [LantUS] 11 unit SUBCUT BID Nystatin [Nystop] 0 gm TOP BID atorvaSTATin [Lipitor] 10 mg PO BEDTIME 05/23/21 00:43 Codeine/Promethazine [Phenergan with Codeine] 5 - 10 ml PO Q6H PRN 05/23/21 08:00 Aspirin [Halfprin] 81 mg PO DAILY Levothyroxine 125 mcg PO DAILY 05/23/21 09:18 Dextrose 50% in Water 50 ml IVPUSH ASDIRECTED PRN Glucagon,Human Recombinant [GlucaGen] 1 mg IM ASDIRECTED PRN 05/23/21 12:00 Insulin Lispro [HumaLOG] See Protocol SUBCUT WITHMEALSANDBED 05/24/21 05:11 BASIC METABOLIC PANEL,BMP [CHEM] DAILY C-REACTIVE PROTEIN [CHEM] DAILY CBC WITH AUTO DIFF [HEME] DAILY PRO B-TYPE NATRIUR PEPT,BNPPRO [CHEM] Routine 05/25/21 05:11 BASIC METABOLIC PANEL,BMP [CHEM] DAILY C-REACTIVE PROTEIN [CHEM] DAILY CBC WITH AUTO DIFF [HEME] DAILY 05/26/21 05:11 BASIC METABOLIC PANEL,BMP [CHEM] DAILY C-REACTIVE PROTEIN [CHEM] DAILY CBC WITH AUTO DIFF [HEME] DAILY - Assessment Assessment:: RLL Pneumonia - Plan Plan:: Patient appears less toxic this am. Labs show some improvement, WBC down to 21.6. CRP 32.6. Lactic acid much improved at 1.3. Oxygen sats 90% on room air. Will continue with IV fluids cautiously, watch ProBNP. Hopefully will increase oral intake, reduce IV fluids as able. Continue IV Levaquin. Repeat labs in am.
[2021-05-23] MEDS: Levofloxacin/Dextrose 5%-Water 250 MG in Premix Bag 1 BAG IV SCH (11:31)
[2021-05-23] MEDS: Donepezil 5 MG Tab PO SCH (19:28)
[2021-05-23] MEDS: atorvaSTATin 10 MG Tab PO SCH (19:29)
[2021-05-24] MEDS: Aspirin 81 MG Tab.EC PO SCH (07:05)
[2021-05-24] MEDS: Potassium Chloride 10 MEQ Tab.ER PO SCH ×2 (07:05→17:29)
[2021-05-24] MEDS: Albuterol/Ipratropium 3.0-0.5 MG/3 ML Neb Soln NEB SCH ×4 (07:05→19:39)
[2021-05-24] MEDS: Acetaminophen 500 MG Tab PO SCH ×3 (07:05→19:38)
[2021-05-24] MEDS: Levothyroxine 125 MCG Tab PO SCH (07:05)
[2021-05-24] MEDS ORDERED: methylPREDNISolone Sodium Succinate 125 MG/2 ML SDV IVPUSH SCH (09:00)
[2021-05-24] MEDS: Insulin Glarg,Human.Rec.Analog 100 Unit/ML SUBCUT SCH ×2 (09:00→20:49)
[2021-05-24] MEDS: Insulin Lispro 100 Units/ML 3 ML Vial SUBCUT SCH ×4 (09:01→20:50)
--- NOTE | 2021-05-24 09:17 | PCM.PN ---
- General Info Date of Service: 05/24/21 Admission Dx/Problem (Free Text): RLL pneumonia RSV Subjective Update: Pat is up in chair this am, uncooperative with staff this am. Had been complaining of abdominal pain earlier to staff. Now had a large, incontinent BM with some relief. Sister has been staying here with patient, relates was able to get her to eat yesterday afternoon. Is taking fluids now. Spiked a temp of 101 yesterday afternoon. Blood pressure stable. Oxygen sats have been maintaining around 90% on room air. More alert per sister, conversing more yesterday afternoon. Is coughing more, loose in nature. Functional Status: Reports: Tolerating Diet, Ambulating - Review of Systems General: Reports: Fever, Weakness, Malaise, Other (ROS obtained more from sister as patient just states "no" over and over and "leave me alone") Pulmonary: Reports: Cough. Denies: Shortness of Breath Gastrointestinal: Denies: Nausea, Vomiting Skin: Reports: No Symptoms - Patient Data Vitals - Most Recent: Last Vital Signs Temp 97.5 F 05/24/21 04:00 Pulse 103 H 05/24/21 04:00 Resp 18 05/24/21 04:00 BP 152/49 H 05/24/21 04:00 Pulse Ox 90 L 05/24/21 04:00 Weight - Most Recent: 129 lb 1.6 oz I&O - Last 24 Hours: Intake & Output 05/23/21 05/24/21 05/24/21 23:59 06:59 14:59 Intake Total Balance Lab Results Last 24 Hours: Laboratory Results - last 24 hr 05/23/21 05/23/21 05/24/21 Range/Units 17:03 19:55 05:11 WBC 19.9 H (4.0-11.0) 10^3/uL RBC 3.81 L (4.00-5.50) x10^6/uL Hgb 12.7 (12.0-16.0) g/dL Hct 39.2 (37.0-47.0) % MCV 102.9 H (83.0-97.0) fL MCH 33.3 H (27.0-32.0) pg MCHC 32.4 (32.0-36.0) g/dL RDW Coeff of Dav 13.8 (11.0-15.0) % Plt Count 210 (150-400) 10^3/uL Immature Gran % (Auto) 1.5 (0.0-4.9) % Neut % (Auto) 84.4 H (41-71) % Lymph % (Auto) 7.7 L (24-44) % Drew % (Auto) 6.3 (0-10) % Eos % (Auto) 0.0 (0-6) % Baso % (Auto) 0.1 (0-1) % Neut # (Auto) 16.79 H (1.80-8.00) x10^3/uL Lymph # (Auto) 1.54 (0.60-5.00) 10^3/uL Drew # (Auto) 1.25 (0.00-1.50) 10^3/uL Eos # (Auto) 0.00 (0.00-1.50) 10^3/uL Baso # (Auto) 0.01 (0.00-0.50) 10^3/uL Immature Gran # (Auto) 0.29 (0.00-0.49) 10^3/uL Sodium (136-145) mEq/L Potassium (3.5-5.0) mEq/L Chloride (98-106) mEq/L Carbon Dioxide (21-32) mmol/L BUN (7-18) mg/dL Creatinine (0.6-1.0) mg/dL Est Cr Clr Drug Dosing mL/min Estimated GFR (MDRD) (>=60) mL/min Glucose (75-99) mg/dL POC Glucose 394 H 461 H* (75-105) mg/dL Calcium (8.4-10.1) mg/dL C-Reactive Protein (0.2-0.8) mg/dL NT-Pro-B Natriuret Pep (0-1000) pg/mL 05/24/21 Range/Units 05:11 WBC (4.0-11.0) 10^3/uL RBC (4.00-5.50) x10^6/uL Hgb (12.0-16.0) g/dL Hct (37.0-47.0) % MCV (83.0-97.0) fL MCH (27.0-32.0) pg MCHC (32.0-36.0) g/dL RDW Coeff of Dav (11.0-15.0) % Plt Count (150-400) 10^3/uL Immature Gran % (Auto) (0.0-4.9) % Neut % (Auto) (41-71) % Lymph % (Auto) (24-44) % Drew % (Auto) (0-10) % Eos % (Auto) (0-6) % Baso % (Auto) (0-1) % Neut # (Auto) (1.80-8.00) x10^3/uL Lymph # (Auto) (0.60-5.00) 10^3/uL Drew # (Auto) (0.00-1.50) 10^3/uL Eos # (Auto) (0.00-1.50) 10^3/uL Baso # (Auto) (0.00-0.50) 10^3/uL Immature Gran # (Auto) (0.00-0.49) 10^3/uL Sodium 141 (136-145) mEq/L Potassium 4.8 (3.5-5.0) mEq/L Chloride 106 (98-106) mEq/L Carbon Dioxide 26 (21-32) mmol/L BUN 12 (7-18) mg/dL Creatinine 1.2 H (0.6-1.0) mg/dL Est Cr Clr Drug Dosing 34.47 mL/min Estimated GFR (MDRD) 45 L (>=60) mL/min Glucose 362 H* (75-99) mg/dL POC Glucose (75-105) mg/dL Calcium 8.4 (8.4-10.1) mg/dL C-Reactive Protein 48.0 H (0.2-0.8) mg/dL NT-Pro-B Natriuret Pep 863 (0-1000) pg/mL Med Orders - Current: Current Medications Acetaminophen (Acetaminophen 325 Mg Tab) 650 mg PO Q4H PRN PRN Reason: Pain (Mild 1-3)/fever Acetaminophen (Acetaminophen 500 Mg Tab) 1,000 mg PO TID [facility] Last Admin: 05/24/21 07:05 Dose: 1,000 mg Documented by: Albuterol/Ipratropium (Albuterol/Ipratropium 3.0-0.5 Mg/3 Ml Neb Soln) 3 ml NEB QIDRT [facility] Last Admin: 05/24/21 07:05 Dose: 3 ml Documented by: Albuterol/Ipratropium (Albuterol/Ipratropium 3.0-0.5 Mg/3 Ml Neb Soln) 3 ml NEB Q4H PRN PRN Reason: Dyspnea Artificial Tears (Polyvinyl Alcohol 1.4% Ophth Soln 15 Ml Bottle) 0 ml EYEBOTH TID PRN PRN Reason: Dry Eyes Aspirin (Aspirin 81 Mg Tab.Ec) 81 mg PO DAILY [facility] Last Admin: 05/24/21 07:05 Dose: 81 mg Documented by: Atorvastatin Calcium (Atorvastatin 10 Mg Tab) 10 mg PO BEDTIME [facility] Last Admin: 05/23/21 19:29 Dose: 10 mg Documented by: Dextrose/Water (50% Dextrose In Water 50 Ml Syringe) 50 ml IVPUSH ASDIRECTED PRN PRN Reason: Hypoglycemia Donepezil HCl (Donepezil 5 Mg Tab) 5 mg PO BEDTIME [facility] Last Admin: 05/23/21 19:28 Dose: 5 mg Documented by: Enoxaparin Sodium (Enoxaparin 40 Mg/0.4 Ml Syringe) 40 mg SUBCUT Q24H [facility] Glucagon (Glucagon,Human Recombinant 1 Mg Vial) 1 mg IM ASDIRECTED PRN PRN Reason: Hypoglycemia Sodium Chloride (Normal Saline) 1,000 mls @ 75 mls/hr IV ASDIRECTED [facility] Last Admin: 05/23/21 15:32 Dose: 75 mls/hr Documented by: Levofloxacin/Dextrose 250 mg/ (Premix) 50 mls @ 50 mls/hr IV Q24H [facility] Last Admin: 05/23/21 11:31 Dose: 50 mls/hr Documented by: Insulin Glargine (Insulin Glarg,Human.Rec.Analog 100 Unit/Ml) 11 unit SUBCUT BID [facility] Last Admin: 05/24/21 09:00 Dose: 11 unit Documented by: Insulin Human Lispro (Insulin Lispro 100 Units/Ml 3 Ml Vial) 0 unit SUBCUT WITHMEALSANDBED [facility]; Protocol Last Admin: 05/24/21 09:01 Dose: 10 units Documented by: Levothyroxine Sodium (Levothyroxine 125 Mcg Tab) 125 mcg PO DAILY [facility] Last Admin: 05/24/21 07:05 Dose: 125 mcg Documented by: Methylprednisolone Sodium Succinate (Methylprednisolone Sodium Succinate 125 Mg/2 Ml Sdv) 62.5 mg IVPUSH Q12H [facility] Nystatin (Nystatin Topical Powder 15 Gm Bottle) 0 gm TOP BID [facility] Last Admin: 05/23/21 23:56 Dose: 0.1 gram Documented by: Nystatin (Nystatin Crm 30 Gm Tube) 0 gm TOP BID PRN PRN Reason: Rash Ondansetron HCl (Ondansetron 4 Mg/2 Ml Sdv) 4 mg IV Q4H PRN PRN Reason: Nausea/Vomiting Ondansetron HCl (Ondansetron 4 Mg Tab.Dis) 4 mg PO Q4H PRN PRN Reason: nausea, able to take PO Potassium Chloride (Potassium Chloride 10 Meq Tab.Er) 10 meq PO BIDMEALS [facility] Last Admin: 05/24/21 07:05 Dose: 10 meq Documented by: Promethazine HCl/Codeine (Codeine/Promethazine 10-6.25 Mg/5 Ml Syrup 5 Ml Ud Cup) 5 - 10 ml PO Q6H PRN PRN Reason: Cough Last Admin: 05/23/21 22:15 Dose: 10 ml Documented by: Sodium Chloride (Sodium Chloride 0.9% 10 Ml Syringe) 10 ml FLUSH ASDIRECTED PRN PRN Reason: Keep Vein Open Discontinued Medications Dextrose/Water (50% Dextrose In Water 50 Ml Syringe) 50 ml IVPUSH ASDIRECTED PRN PRN Reason: Hypoglycemia Glucagon (Glucagon,Human Recombinant 1 Mg Vial) 1 mg IM ASDIRECTED PRN PRN Reason: Hypoglycemia Insulin Human Lispro (Insulin Lispro 100 Units/Ml 3 Ml Vial) 0 unit SUBCUT WITHMEALSANDBED [facility]; Protocol Last Admin: 05/23/21 10:46 Dose: Not Given Documented by: Insulin Human Lispro (Insulin Lispro 100 Units/Ml 3 Ml Vial) 0 unit SUBCUT ONETIME ONE; Protocol Stop: 05/23/21 09:46 Last Admin: 05/23/21 10:02 Dose: Not Given Documented by: Iopamidol (Iopamidol 755 Mg/Ml 100 Ml Bottle) 100 ml IVPUSH ONETIME ONE Stop: 05/22/21 12:53 Last Admin: 05/22/21 14:57 Dose: 100 ml Documented by: - Exam General: Alert. No: Cooperative HEENT: Mucous Membr. Moist/[place] Neck: Supple Lungs: Decreased Breath Sounds, Crackles (bilateral lower lobe) Cardiovascular: Regular Rate, Regular Rhythm GI/Abdominal Exam: Normal Bowel Sounds, Soft, Non-Tender Extremities: Normal Inspection, No Pedal Edema, Other (hands and feet remain dusky but are warm with good capillary refill) Skin: Warm, Dry Neurological: No New Focal Deficit - Patient Data Lab Results Last 24 hrs: Laboratory Results - last 24 hr 05/23/21 05/23/21 05/24/21 Range/Units 17:03 19:55 05:11 WBC 19.9 H (4.0-11.0) 10^3/uL RBC 3.81 L (4.00-5.50) x10^6/uL Hgb 12.7 (12.0-16.0) g/dL Hct 39.2 (37.0-47.0) % MCV 102.9 H (83.0-97.0) fL MCH 33.3 H (27.0-32.0) pg MCHC 32.4 (32.0-36.0) g/dL RDW Coeff of Dav 13.8 (11.0-15.0) % Plt Count 210 (150-400) 10^3/uL Immature Gran % (Auto) 1.5 (0.0-4.9) % Neut % (Auto) 84.4 H (41-71) % Lymph % (Auto) 7.7 L (24-44) % Drew % (Auto) 6.3 (0-10) % Eos % (Auto) 0.0 (0-6) % Baso % (Auto) 0.1 (0-1) % Neut # (Auto) 16.79 H (1.80-8.00) x10^3/uL Lymph # (Auto) 1.54 (0.60-5.00) 10^3/uL Drew # (Auto) 1.25 (0.00-1.50) 10^3/uL Eos # (Auto) 0.00 (0.00-1.50) 10^3/uL Baso # (Auto) 0.01 (0.00-0.50) 10^3/uL Immature Gran # (Auto) 0.29 (0.00-0.49) 10^3/uL Sodium (136-145) mEq/L Potassium (3.5-5.0) mEq/L Chloride (98-106) mEq/L Carbon Dioxide (21-32) mmol/L BUN (7-18) mg/dL Creatinine (0.6-1.0) mg/dL Est Cr Clr Drug Dosing mL/min Estimated GFR (MDRD) (>=60) mL/min Glucose (75-99) mg/dL POC Glucose 394 H 461 H* (75-105) mg/dL Calcium (8.4-10.1) mg/dL C-Reactive Protein (0.2-0.8) mg/dL NT-Pro-B Natriuret Pep (0-1000) pg/mL 05/24/21 Range/Units 05:11 WBC (4.0-11.0) 10^3/uL RBC (4.00-5.50) x10^6/uL Hgb (12.0-16.0) g/dL Hct (37.0-47.0) % MCV (83.0-97.0) fL MCH (27.0-32.0) pg MCHC (32.0-36.0) g/dL RDW Coeff of Dav (11.0-15.0) % Plt Count (150-400) 10^3/uL Immature Gran % (Auto) (0.0-4.9) % Neut % (Auto) (41-71) % Lymph % (Auto) (24-44) % Drew % (Auto) (0-10) % Eos % (Auto) (0-6) % Baso % (Auto) (0-1) % Neut # (Auto) (1.80-8.00) x10^3/uL Lymph # (Auto) (0.60-5.00) 10^3/uL Drew # (Auto) (0.00-1.50) 10^3/uL Eos # (Auto) (0.00-1.50) 10^3/uL Baso # (Auto) (0.00-0.50) 10^3/uL Immature Gran # (Auto) (0.00-0.49) 10^3/uL Sodium 141 (136-145) mEq/L Potassium 4.8 (3.5-5.0) mEq/L Chloride 106 (98-106) mEq/L Carbon Dioxide 26 (21-32) mmol/L BUN 12 (7-18) mg/dL Creatinine 1.2 H (0.6-1.0) mg/dL Est Cr Clr Drug Dosing 34.47 mL/min Estimated GFR (MDRD) 45 L (>=60) mL/min Glucose 362 H* (75-99) mg/dL POC Glucose (75-105) mg/dL Calcium 8.4 (8.4-10.1) mg/dL C-Reactive Protein 48.0 H (0.2-0.8) mg/dL NT-Pro-B Natriuret Pep 863 (0-1000) pg/mL Result Diagrams: 05/24/21 05:11 05/24/21 05:11 Sepsis Event Note - Focused Exam Vital Signs: Vital Signs Temp Pulse Resp BP Pulse Ox 05/24/21 04:00 97.5 F 103 H 18 152/49 H 90 L - Problem List & Annotations (1) Pneumonia SNOMED Code(s): 182163218 Code(s): J18.9 - PNEUMONIA, UNSPECIFIED ORGANISM Status: Acute Priority: High Current Visit: Yes Qualifiers: Pneumonia type: due to other aerobic Gram-negative bacteria Laterality: rig ht Lung location: lower lobe of lung Qualified Code(s): J15.6 - Pneumonia due to other Gram-negative bacteria - Problem List Review Problem List Initiated/Reviewed/Updated: Yes - My Orders Last 24 Hours: My Active Orders 05/23/21 09:18 Dextrose 50% in Water 50 ml IVPUSH ASDIRECTED PRN Glucagon,Human Recombinant [GlucaGen] 1 mg IM ASDIRECTED PRN 05/23/21 12:00 Insulin Lispro [HumaLOG] See Protocol SUBCUT WITHMEALSANDBED 05/23/21 15:42 CULTURE SPUTUM + SMEAR [RM] Routine 05/24/21 09:15 methylPREDNISolone Sod Succ [Solu-MEDROL] 62.5 mg IVPUSH Q12H 05/24/21 12:00 Enoxaparin [Lovenox] 40 mg SUBCUT Q24H 05/25/21 05:11 BASIC METABOLIC PANEL,BMP [CHEM] DAILY C-REACTIVE PROTEIN [CHEM] DAILY CBC WITH AUTO DIFF [HEME] DAILY 05/26/21 05:11 BASIC METABOLIC PANEL,BMP [CHEM] DAILY C-REACTIVE PROTEIN [CHEM] DAILY CBC WITH AUTO DIFF [HEME] DAILY - Assessment Assessment:: RLL Pneumonia - Plan Plan:: Patient appears less toxic this am. Labs show some improvement, WBC down to 21.6. CRP 32.6. Lactic acid much improved at 1.3. Oxygen sats 90% on room air. Will continue with IV fluids cautiously, watch ProBNP. Hopefully will increase oral intake, reduce IV fluids as able. Continue IV Levaquin. Repeat labs in am. 05-24-2021 More alert today, has started eating better. Visiting more with sister yesterday afternoon. WBC down slightly to 19.9. CRP has increased to 48. Other labs essentially unchanged. Lung sounds more crackles noted today, coughing more, loose in nature. Will stop IV fluids. Continue levaquin. Start Solu Medrol. Increase humalog to high dose protocol, sugars already high and expect increasing more with steroids. Repeat labs in am.
[2021-05-24] MEDS: Nystatin Topical Powder 15 GM Bottle TOP SCH ×2 (09:22→20:51)
[2021-05-24] MEDS: Levofloxacin/Dextrose 5%-Water 250 MG in Premix Bag 1 BAG IV SCH (11:40)
[2021-05-24] MEDS: Enoxaparin 40 MG/0.4 ML Syringe SUBCUT SCH (12:01)
[2021-05-24] MEDS: atorvaSTATin 10 MG Tab PO SCH (19:38)
[2021-05-24] MEDS: methylPREDNISolone Sodium Succinate 125 MG/2 ML SDV IVPUSH SCH (19:39)
[2021-05-24] MEDS: Donepezil 5 MG Tab PO SCH (19:39)
[2021-05-25] MEDS: Codeine/Promethazine 10-6.25 MG/5 ML Syrup 5 ML UD Cup PO PRN (01:25)
[2021-05-25] MEDS: Albuterol/Ipratropium 3.0-0.5 MG/3 ML Neb Soln NEB SCH ×4 (07:40→19:22)
[2021-05-25] MEDS: methylPREDNISolone Sodium Succinate 125 MG/2 ML SDV IVPUSH SCH (07:42)
[2021-05-25] MEDS: Aspirin 81 MG Tab.EC PO SCH (07:48)
[2021-05-25] MEDS: Acetaminophen 500 MG Tab PO SCH ×3 (07:48→19:22)
[2021-05-25] MEDS: Levothyroxine 125 MCG Tab PO SCH (07:49)
[2021-05-25] MEDS: Potassium Chloride 10 MEQ Tab.ER PO SCH (07:49)
[2021-05-25] MEDS: Nystatin Topical Powder 15 GM Bottle TOP SCH ×2 (08:08→20:26)
[2021-05-25] MEDS: Insulin Lispro 100 Units/ML 3 ML Vial SUBCUT SCH ×4 (08:38→21:39)
[2021-05-25] MEDS: Insulin Glarg,Human.Rec.Analog 100 Unit/ML SUBCUT SCH ×2 (08:43→20:49)
[2021-05-25] MEDS ORDERED: Insulin Lispro 100 Units/ML 3 ML Vial SUBCUT ONE (08:44)
[2021-05-25] MEDS ORDERED: Glucagon,Human Recombinant 1 MG Vial IM PRN (08:44)
[2021-05-25] MEDS ORDERED: 50% Dextrose in Water 50 ML Syringe IVPUSH PRN (08:44)
[2021-05-25] MEDS: Levofloxacin/Dextrose 5%-Water 250 MG in Premix Bag 1 BAG IV SCH (11:25)
[2021-05-25] MEDS: Enoxaparin 40 MG/0.4 ML Syringe SUBCUT SCH (11:30)
--- NOTE | 2021-05-25 12:56 | PCM.PN ---
- General Info Date of Service: 05/25/21 Admission Dx/Problem (Free Text): RLL pneumonia RSV Subjective Update: Pat is up in chair this am, uncooperative with staff this am. Had been complaining of abdominal pain earlier to staff. Now had a large, incontinent BM with some relief. Sister has been staying here with patient, relates was able to get her to eat yesterday afternoon. Is taking fluids now. Spiked a temp of 101 yesterday afternoon. Blood pressure stable. Oxygen sats have been maintaining around 90% on room air. More alert per sister, conversing more yesterday afternoon. Is coughing more, loose in nature. 05/25/2021 Pat is sitting in the chair this morning. Sister is present who has been staying with her. States she is doing so much better today. Is active and appearing to be more like her normal self. She has been drinking fluids today. Has been incontinent with bowel movements and just had one prior to visiting with her. No fevers through out the night. Functional Status: Reports: Tolerating Diet, Ambulating. Denies: New Symptoms - Review of Systems General: Denies: Fever HEENT: Reports: No Symptoms Pulmonary: Reports: Cough Gastrointestinal: Reports: Diarrhea. Denies: Abdominal Pain, Nausea, Vomiting Genitourinary: Reports: No Symptoms Musculoskeletal: Reports: No Symptoms Skin: Reports: No Symptoms Neurological: Reports: Pre-Existing Deficit - Patient Data Vitals - Most Recent: Last Vital Signs Temp 98.1 F 05/25/21 12:00 Pulse 98 05/25/21 12:00 Resp 18 05/25/21 12:00 BP 130/52 L 05/25/21 12:00 Pulse Ox 95 05/25/21 12:00 Weight - Most Recent: 129 lb 1.6 oz I&O - Last 24 Hours: Intake & Output 05/24/21 05/25/21 05/25/21 22:59 06:59 14:59 Intake Total 800 300 Balance 800 300 Lab Results Last 24 Hours: Laboratory Results - last 24 hr 05/24/21 05/24/21 05/25/21 Range/Units 17:11 20:47 05:11 WBC 17.2 H (4.0-11.0) 10^3/uL RBC 3.73 L (4.00-5.50) x10^6/uL Hgb 12.5 (12.0-16.0) g/dL Hct 37.7 (37.0-47.0) % MCV 101.1 H (83.0-97.0) fL MCH 33.5 H (27.0-32.0) pg MCHC 33.2 (32.0-36.0) g/dL RDW Coeff of Dav 13.5 (11.0-15.0) % Plt Count 224 (150-400) 10^3/uL Immature Gran % (Auto) 1.7 (0.0-4.9) % Neut % (Auto) 92.1 H (41-71) % Lymph % (Auto) 4.8 L (24-44) % [place] % (Auto) 1.3 (0-10) % Eos % (Auto) 0.0 (0-6) % Baso % (Auto) 0.1 (0-1) % Neut # (Auto) 15.87 H (1.80-8.00) x10^3/uL Lymph # (Auto) 0.82 (0.60-5.00) 10^3/uL [place] # (Auto) 0.23 (0.00-1.50) 10^3/uL Eos # (Auto) 0.00 (0.00-1.50) 10^3/uL Baso # (Auto) 0.01 (0.00-0.50) 10^3/uL Immature Gran # (Auto) 0.29 (0.00-0.49) 10^3/uL Sodium (136-145) mEq/L Potassium (3.5-5.0) mEq/L Chloride (98-106) mEq/L Carbon Dioxide (21-32) mmol/L BUN (7-18) mg/dL Creatinine (0.6-1.0) mg/dL Est Cr Clr Drug Dosing mL/min Estimated GFR (MDRD) (>=60) mL/min Glucose (75-99) mg/dL POC Glucose 395 H 482 H* (75-105) mg/dL Calcium (8.4-10.1) mg/dL C-Reactive Protein (0.2-0.8) mg/dL 05/25/21 Range/Units 05:11 WBC (4.0-11.0) 10^3/uL RBC (4.00-5.50) x10^6/uL Hgb (12.0-16.0) g/dL Hct (37.0-47.0) % MCV (83.0-97.0) fL MCH (27.0-32.0) pg MCHC (32.0-36.0) g/dL RDW Coeff of Dav (11.0-15.0) % Plt Count (150-400) 10^3/uL Immature Gran % (Auto) (0.0-4.9) % Neut % (Auto) (41-71) % Lymph % (Auto) (24-44) % [place] % (Auto) (0-10) % Eos % (Auto) (0-6) % Baso % (Auto) (0-1) % Neut # (Auto) (1.80-8.00) x10^3/uL Lymph # (Auto) (0.60-5.00) 10^3/uL [place] # (Auto) (0.00-1.50) 10^3/uL Eos # (Auto) (0.00-1.50) 10^3/uL Baso # (Auto) (0.00-0.50) 10^3/uL Immature Gran # (Auto) (0.00-0.49) 10^3/uL Sodium 142 (136-145) mEq/L Potassium 5.4 H (3.5-5.0) mEq/L Chloride 106 (98-106) mEq/L Carbon Dioxide 26 (21-32) mmol/L BUN 17 (7-18) mg/dL Creatinine 1.0 (0.6-1.0) mg/dL Est Cr Clr Drug Dosing 41.36 mL/min Estimated GFR (MDRD) 56 L (>=60) mL/min Glucose 476 H* D (75-99) mg/dL POC Glucose (75-105) mg/dL Calcium 8.6 (8.4-10.1) mg/dL C-Reactive Protein 36.7 H (0.2-0.8) mg/dL Marco A Results Last 24 Hours: Microbiology 05/23/21 15:42 Gram Stain - Final Sputum - Expectorated Sputum Culture - Final Med Orders - Current: Current Medications Acetaminophen (Acetaminophen 325 Mg Tab) 650 mg PO Q4H PRN PRN Reason: Pain (Mild 1-3)/fever Acetaminophen (Acetaminophen 500 Mg Tab) 1,000 mg PO TID [facility] Last Admin: 05/25/21 07:48 Dose: 1,000 mg Documented by: Albuterol/Ipratropium (Albuterol/Ipratropium 3.0-0.5 Mg/3 Ml Neb Soln) 3 ml NEB QIDRT [facility] Last Admin: 05/25/21 11:30 Dose: 3 ml Documented by: Albuterol/Ipratropium (Albuterol/Ipratropium 3.0-0.5 Mg/3 Ml Neb Soln) 3 ml NEB Q4H PRN PRN Reason: Dyspnea Artificial Tears (Polyvinyl Alcohol 1.4% Ophth Soln 15 Ml Bottle) 0 ml EYEBOTH TID PRN PRN Reason: Dry Eyes Aspirin (Aspirin 81 Mg Tab.Ec) 81 mg PO DAILY [facility] Last Admin: 05/25/21 07:48 Dose: 81 mg Documented by: Atorvastatin Calcium (Atorvastatin 10 Mg Tab) 10 mg PO BEDTIME [facility] Last Admin: 05/24/21 19:38 Dose: 10 mg Documented by: Dextrose/Water (50% Dextrose In Water 50 Ml Syringe) 50 ml IVPUSH ASDIRECTED PRN PRN Reason: Hypoglycemia Dextrose/Water (50% Dextrose In Water 50 Ml Syringe) 50 ml IVPUSH ASDIRECTED PRN PRN Reason: Hypoglycemia Donepezil HCl (Donepezil 5 Mg Tab) 5 mg PO BEDTIME [facility] Last Admin: 05/24/21 19:39 Dose: 5 mg Documented by: Enoxaparin Sodium (Enoxaparin 40 Mg/0.4 Ml Syringe) 40 mg SUBCUT Q24H [facility] Last Admin: 05/25/21 11:30 Dose: 40 mg Documented by: Glucagon (Glucagon,Human Recombinant 1 Mg Vial) 1 mg IM ASDIRECTED PRN PRN Reason: Hypoglycemia Glucagon (Glucagon,Human Recombinant 1 Mg Vial) 1 mg IM ASDIRECTED PRN PRN Reason: Hypoglycemia Levofloxacin/Dextrose 250 mg/ (Premix) 50 mls @ 50 mls/hr IV Q24H [facility] Last Admin: 05/25/21 11:25 Dose: 50 mls/hr Documented by: Insulin Glargine (Insulin Glarg,Human.Rec.Analog 100 Unit/Ml) 11 unit SUBCUT BID [facility] Last Admin: 05/25/21 08:43 Dose: 11 unit Documented by: Insulin Human Lispro (Insulin Lispro 100 Units/Ml 3 Ml Vial) 0 unit SUBCUT WITHMEALSANDBED [facility]; Protocol Last Admin: 05/25/21 11:59 Dose: 20 units Documented by: Levothyroxine Sodium (Levothyroxine 125 Mcg Tab) 125 mcg PO DAILY [facility] Last Admin: 05/25/21 07:49 Dose: 125 mcg Documented by: Methylprednisolone Sodium Succinate (Methylprednisolone Sodium Succinate 125 Mg/2 Ml Sdv) 62.5 mg IVPUSH Q12H [facility] Last Admin: 05/25/21 07:42 Dose: 62.5 mg Documented by: Nystatin (Nystatin Topical Powder 15 Gm Bottle) 0 gm TOP BID [facility] Last Admin: 05/25/21 08:08 Dose: 1 gram Documented by: Nystatin (Nystatin Crm 30 Gm Tube) 0 gm TOP BID PRN PRN Reason: Rash Ondansetron HCl (Ondansetron 4 Mg/2 Ml Sdv) 4 mg IV Q4H PRN PRN Reason: Nausea/Vomiting Ondansetron HCl (Ondansetron 4 Mg Tab.Dis) 4 mg PO Q4H PRN PRN Reason: nausea, able to take PO Promethazine HCl/Codeine (Codeine/Promethazine 10-6.25 Mg/5 Ml Syrup 5 Ml Ud Cup) 5 - 10 ml PO Q6H PRN PRN Reason: Cough Last Admin: 05/25/21 01:25 Dose: 5 ml Documented by: Sodium Chloride (Sodium Chloride 0.9% 10 Ml Syringe) 10 ml FLUSH ASDIRECTED PRN PRN Reason: Keep Vein Open Discontinued Medications Dextrose/Water (50% Dextrose In Water 50 Ml Syringe) 50 ml IVPUSH ASDIRECTED PRN PRN Reason: Hypoglycemia Glucagon (Glucagon,Human Recombinant 1 Mg Vial) 1 mg IM ASDIRECTED PRN PRN Reason: Hypoglycemia Sodium Chloride (Normal Saline) 1,000 mls @ 75 mls/hr IV ASDIRECTED [facility] Last Admin: 05/23/21 15:32 Dose: 75 mls/hr Documented by: Insulin Human Lispro (Insulin Lispro 100 Units/Ml 3 Ml Vial) 0 unit SUBCUT WITHMEALSANDBED [facility]; Protocol Last Admin: 05/23/21 10:46 Dose: Not Given Documented by: Insulin Human Lispro (Insulin Lispro 100 Units/Ml 3 Ml Vial) 0 unit SUBCUT ON ETIME ONE; Protocol Stop: 05/23/21 09:46 Last Admin: 05/23/21 10:02 Dose: Not Given Documented by: Insulin Human Lispro (Insulin Lispro 100 Units/Ml 3 Ml Vial) 5 unit SUBCUT ONETIME ONE Stop: 05/25/21 08:45 Last Admin: 05/25/21 08:38 Dose: 5 units Documented by: Iopamidol (Iopamidol 755 Mg/Ml 100 Ml Bottle) 100 ml IVPUSH ONETIME ONE Stop: 05/22/21 12:53 Last Admin: 05/22/21 14:57 Dose: 100 ml Documented by: Methylprednisolone Sodium Succinate (Methylprednisolone Sodium Succinate 125 Mg/2 Ml Sdv) 62.5 mg IVPUSH Q12H [facility] Last Admin: 05/24/21 10:09 Dose: 62.5 mg Documented by: Potassium Chloride (Potassium Chloride 10 Meq Tab.Er) 10 meq PO BIDMEALS [facility] Last Admin: 05/25/21 07:49 Dose: 10 meq Documented by: - Exam Quality Assessment: No: Supplemental Oxygen General: Alert, Cooperative. No: Mild Distress, Moderate Distress, Severe Distress Lungs: Rhonchi. No: Decreased Breath Sounds, Wheezing Cardiovascular: Regular Rate, Regular Rhythm, No Murmurs GI/Abdominal Exam: Normal Bowel Sounds, Soft, Non-Tender Extremities: Normal Inspection, No Pedal Edema Skin: Warm, Dry, Intact Psy/Mental Status: Alert, Normal Affect, Normal Mood - Patient Data Lab Results Last 24 hrs: Laboratory Results - last 24 hr 05/24/21 05/24/21 05/25/21 Range/Units 17:11 20:47 05:11 WBC 17.2 H (4.0-11.0) 10^3/uL RBC 3.73 L (4.00-5.50) x10^6/uL Hgb 12.5 (12.0-16.0) g/dL Hct 37.7 (37.0-47.0) % MCV 101.1 H (83.0-97.0) fL MCH 33.5 H (27.0-32.0) pg MCHC 33.2 (32.0-36.0) g/dL RDW Coeff of Dav 13.5 (11.0-15.0) % Plt Count 224 (150-400) 10^3/uL Immature Gran % (Auto) 1.7 (0.0-4.9) % Neut % (Auto) 92.1 H (41-71) % Lymph % (Auto) 4.8 L (24-44) % [place] % (Auto) 1.3 (0-10) % Eos % (Auto) 0.0 (0-6) % Baso % (Auto) 0.1 (0-1) % Neut # (Auto) 15.87 H (1.80-8.00) x10^3/uL Lymph # (Auto) 0.82 (0.60-5.00) 10^3/uL [place] # (Auto) 0.23 (0.00-1.50) 10^3/uL Eos # (Auto) 0.00 (0.00-1.50) 10^3/uL Baso # (Auto) 0.01 (0.00-0.50) 10^3/uL Immature Gran # (Auto) 0.29 (0.00-0.49) 10^3/uL Sodium (136-145) mEq/L Potassium (3.5-5.0) mEq/L Chloride (98-106) mEq/L Carbon Dioxide (21-32) mmol/L BUN (7-18) mg/dL Creatinine (0.6-1.0) mg/dL Est Cr Clr Drug Dosing mL/min Estimated GFR (MDRD) (>=60) mL/min Glucose (75-99) mg/dL POC Glucose 395 H 482 H* (75-105) mg/dL Calcium (8.4-10.1) mg/dL C-Reactive Protein (0.2-0.8) mg/dL 05/25/21 Range/Units 05:11 WBC (4.0-11.0) 10^3/uL RBC (4.00-5.50) x10^6/uL Hgb (12.0-16.0) g/dL Hct (37.0-47.0) % MCV (83.0-97.0) fL MCH (27.0-32.0) pg MCHC (32.0-36.0) g/dL RDW Coeff of Dav (11.0-15.0) % Plt Count (150-400) 10^3/uL Immature Gran % (Auto) (0.0-4.9) % Neut % (Auto) (41-71) % Lymph % (Auto) (24-44) % [place] % (Auto) (0-10) % Eos % (Auto) (0-6) % Baso % (Auto) (0-1) % Neut # (Auto) (1.80-8.00) x10^3/uL Lymph # (Auto) (0.60-5.00) 10^3/uL [place] # (Auto) (0.00-1.50) 10^3/uL Eos # (Auto) (0.00-1.50) 10^3/uL Baso # (Auto) (0.00-0.50) 10^3/uL Immature Gran # (Auto) (0.00-0.49) 10^3/uL Sodium 142 (136-145) mEq/L Potassium 5.4 H (3.5-5.0) mEq/L Chloride 106 (98-106) mEq/L Carbon Dioxide 26 (21-32) mmol/L BUN 17 (7-18) mg/dL Creatinine 1.0 (0.6-1.0) mg/dL Est Cr Clr Drug Dosing 41.36 mL/min Estimated GFR (MDRD) 56 L (>=60) mL/min Glucose 476 H* D (75-99) mg/dL POC Glucose (75-105) mg/dL Calcium 8.6 (8.4-10.1) mg/dL C-Reactive Protein 36.7 H (0.2-0.8) mg/dL Result Diagrams: 05/25/21 05:11 05/25/21 05:11 Marco A Results Last 24 hrs: Microbiology 05/23/21 15:42 Gram Stain - Final Sputum - Expectorated Sputum Culture - Final Sepsis Event Note - Focused Exam Vital Signs: Vital Signs Temp Pulse Resp BP Pulse Ox 05/25/21 12:00 98.1 F 98 18 130/52 L 95 05/25/21 10:00 93 L 05/25/21 08:00 98.7 F 81 20 150/68 H 91 L - Problem List & Annotations (1) Pneumonia SNOMED Code(s): 378341900 Code(s): J18.9 - PNEUMONIA, UNSPECIFIED ORGANISM Status: Acute Priority: High Current Visit: Yes Qualifiers: Pneumonia type: due to other aerobic Gram-negative bacteria Laterality: right Lung location: lower lobe of lung Qualified Code(s): J15.6 - Pneumonia due to other Gram-negative bacteria (2) RSV infection SNOMED Code(s): 69891236 Code(s): B97.4 - RESPIRATORY SYNCYTIAL VIRUS CAUSING DISEASES CLASSD [id number] Status: Acute Current Visit: Yes - Problem List Review Problem List Initiated/Reviewed/Updated: Yes - My Orders Last 24 Hours: My Active Orders 05/25/21 08:44 Dextrose 50% in Water 50 ml IVPUSH ASDIRECTED PRN Glucagon,Human Recombinant [GlucaGen] 1 mg IM ASDIRECTED PRN - Assessment Assessment:: RLL Pneumonia - Plan Plan:: Patient appears less toxic this am. Labs show some improvement, WBC down to 21.6. CRP 32.6. Lactic acid much improved at 1.3. Oxygen sats 90% on room air. Will continue with IV fluids cautiously, watch ProBNP. Hopefully will increase oral intake, reduce IV fluids as able. Continue IV Levaquin. Repeat labs in am. 05-24-2021 More alert today, has started eating better. Visiting more with sister yesterday afternoon. WBC down slightly to 19.9. CRP has increased to 48. Other labs essentially unchanged. Lung sounds more crackles noted today, coughing more, loose in nature. Will stop IV fluids. Continue levaquin. Start Solu Medrol. Increase humalog to high dose protocol, sugars already high and expect increasing more with steroids. Repeat labs in am. 05/25/2201 Patient is showing improvement, sister again feels this is the best she has been since prior to getting sick. WBC down to 17.2 today. CRP is trending down as well. Potassium is elevated to 5.4, will d/c potassium supplementation. Continue IV antibiotics and d/c IV steroids. Sugars have been quite elevated. Overall, discussed with daughter possible discharge tomorrow if still showing improvement. Repeat labs in am.
[2021-05-25] MEDS: atorvaSTATin 10 MG Tab PO SCH (19:22)
[2021-05-25] MEDS: Donepezil 5 MG Tab PO SCH (19:22)
[2021-05-26] MEDS: Albuterol/Ipratropium 3.0-0.5 MG/3 ML Neb Soln NEB SCH ×2 (07:24→11:47)
[2021-05-26] MEDS: Nystatin Topical Powder 15 GM Bottle TOP SCH (07:32)
[2021-05-26] MEDS: Aspirin 81 MG Tab.EC PO SCH (07:36)
[2021-05-26] MEDS: Levothyroxine 125 MCG Tab PO SCH (07:36)
[2021-05-26] MEDS: Acetaminophen 500 MG Tab PO SCH ×2 (07:36→14:03)
[2021-05-26] MEDS: Insulin Lispro 100 Units/ML 3 ML Vial SUBCUT SCH ×2 (08:02→11:49)
[2021-05-26] MEDS: Insulin Glarg,Human.Rec.Analog 100 Unit/ML SUBCUT SCH (08:06)
[2021-05-26] MEDS: Levofloxacin/Dextrose 5%-Water 250 MG in Premix Bag 1 BAG IV SCH (11:43)
[2021-05-26] MEDS: Enoxaparin 40 MG/0.4 ML Syringe SUBCUT SCH (11:49)
--- NOTE | 2021-05-26 12:03 | DISCH ---
REASON FOR HOSPITALIZATION: Admission diagnoses: 1. Pneumonia. 2. Respiratory syncytial virus. 3. Down syndrome. 4. Hyperlipidemia. 5. Dementia. 6. Hypothyroidism. 7. Type 2 diabetes, requiring insulin. DISCHARGE DIAGNOSIS: 1. PNEUMONIA. 2. RESPIRATORY SYNCYTIAL VIRUS. 3. DOWN SYNDROME. 4. HYPERLIPIDEMIA. 5. DEMENTIA. 6. HYPOTHYROIDISM. 7. TYPE 2 DIABETES, REQUIRING INSULIN. HISTORY: The patient is a 65-year-old Down syndrome patient who presented with active cough, difficulty breathing, and shortness of breath. She had been having some fever. She resides at the [address] [place] [address]. Triny Robin evaluated her in the clinic. She had a positive RSV, was requiring O2, and a chest x-ray showed bibasilar infiltrates. She was admitted for appropriate cares. HOSPITAL COURSE: The patient did clinically well while here. She was put on appropriate nebulizer therapy, given supplemental oxygen and started on Levaquin. At the time of her admission, she had an elevated white count of 29,000, that is down to less than 16,000. Her COVID test was done and negative. She was given a little IV steroids, which did bump her sugars up, but she was given sliding scale insulin without any difficulty. CRP reached a nehemiah of 48, it is down to 20 on admit and she has been afebrile for over 2 days. She has tolerated the nebulizers well. She was weaned off O2 and clinically looks well. We are going to discharge her home on a finished course of oral Levaquin, q.i.d. nebs for a week, and she will follow up with her primary care provider, Daxa Henderson in the next week for recheck x-ray and lab. COMPLICATIONS: During her stay were none. CONSULTATIONS: None. DISPOSITION: Discharged to [address] [place] [address]. SAFIA/CAROL ANN /[id number]
[2021-05-26 16:57] VITALS: BP 118/54; PULSE 66
== END 2021-05-26 14:45 | disposition home or self-care (01) | DRG 195 ==
LOC: CC.FCMC 10:11 → UNDOADMIN 11:13 → CC.MS 11:13
PROVIDERS: ADMIT Physician Assistant Medical; ATTEND Family Medicine
DX: J18.9 Pneumonia, unspecified organism (principal); Q90.9 Down syndrome, unspecified; E78.5 Hyperlipidemia, unspecified; F03.90 Unspecified dementia, unspecified severity, without behavioral disturbance, psychotic disturbance, mood disturbance, and anxiety; E03.9 Hypothyroidism, unspecified; E11.9 Type 2 diabetes mellitus without complications; Z20.822 Contact with and (suspected) exposure to COVID-19; Z79.4 Long term (current) use of insulin; Z88.6 Allergy status to analgesic agent; Z88.8 Allergy status to other drugs, medicaments and biological substances; Z88.2 Allergy status to sulfonamides; Z88.1 Allergy status to other antibiotic agents; Z88.0 Allergy status to penicillin; Z79.82 Long term (current) use of aspirin; Z79.899 Other long term (current) drug therapy; B97.4 Respiratory syncytial virus as the cause of diseases classified elsewhere
CPT/HCPCS: 0241U; 36415; 71046; 71275; 80048; 80053; 82947; 83605; 83880; 85025; 85379; 86140; 87070; 87205; 94640; A9270-GY; J1650; J1815-GY; J1956; J2930; J7030; J7620-GY; Q9967

== ENCOUNTER 2021-06-04 13:19 | Inpatient (IN) | payer MEDICARE, MEDICAID ==
[2021-06-04 14:10] LABS: CHLORIDE,CL 104 mEq/L (98-106); SODIUM,NA 143 mEq/L (136-145)
[2021-06-04] MEDS ORDERED: Acetaminophen 325 MG Tab PO PRN (16:04)
[2021-06-04] MEDS ORDERED: Sodium Chloride 0.9% 10 ML Syringe FLUSH PRN (16:04)
[2021-06-04] MEDS ORDERED: Docusate Sodium 100 MG Cap PO PRN (16:04)
[2021-06-04] MEDS ORDERED: Nystatin Topical Powder 15 GM Bottle TOP PRN (16:27)
[2021-06-04] MEDS: Sodium Chloride 0.9% 1,000 ML IV SCH (16:31)
[2021-06-04] MEDS ORDERED: Polyvinyl Alcohol 1.4% Ophth Soln 15 ML Bottle EYEBOTH PRN (16:32)
[2021-06-04] MEDS: cefTRIAXone 1 GM Vial IVPUSH SCH (16:37)
[2021-06-04] MEDS: VANCOmycin 1 GM/200 ML 1 GM in Premix Bag 1 BAG IV SCH (16:59)
[2021-06-04] MEDS ORDERED: Insulin Lispro 100 Units/ML 3 ML Vial SUBCUT PRN (16:59)
[2021-06-04] MEDS: Potassium Chloride 10 MEQ Tab.ER PO SCH (17:01)
[2021-06-04] MEDS: Insulin Lispro 100 Units/ML 3 ML Vial SUBCUT SCH (17:17)
[2021-06-04] MEDS: Enoxaparin 30 MG/0.3 ML Syringe SUBCUT SCH (20:28)
[2021-06-04] MEDS: Acetaminophen 500 MG Tab PO SCH (20:30)
[2021-06-04] MEDS: Melatonin 3 MG Tab PO SCH (20:31)
[2021-06-04] MEDS: Donepezil 5 MG Tab PO SCH (20:32)
[2021-06-04] MEDS: Loratadine 10 MG Tab PO SCH (20:33)
[2021-06-04] MEDS: Gentian Violet 59 ML Bottle TOP SCH (20:34)
[2021-06-04] MEDS: Insulin Glarg,Human.Rec.Analog 100 Unit/ML SUBCUT SCH (20:57)
[2021-06-05] MEDS: Sodium Chloride 0.9% 1,000 ML IV SCH ×3 (01:40→18:44)
[2021-06-05] MEDS: Gentian Violet 59 ML Bottle TOP SCH ×3 (06:28→19:57)
[2021-06-05] MEDS: Levothyroxine 125 MCG Tab PO SCH (06:37)
[2021-06-05] MEDS: Acetaminophen 500 MG Tab PO SCH ×4 (08:09→20:06)
[2021-06-05] MEDS: Potassium Chloride 10 MEQ Tab.ER PO SCH ×2 (08:12→16:59)
[2021-06-05] MEDS: Aspirin 81 MG Tab.EC PO SCH (08:13)
[2021-06-05] MEDS: Insulin Lispro 100 Units/ML 3 ML Vial SUBCUT SCH ×3 (08:50→17:43)
[2021-06-05] MEDS: Insulin Glarg,Human.Rec.Analog 100 Unit/ML SUBCUT SCH ×2 (08:52→21:06)
--- NOTE | 2021-06-05 12:04 | PN ---
DATE: 06/05/2021 S: Ms. Dutton is a 65-year-old readmitted to our hospital for pneumonia. She came in with a right mid, and lower lobe pneumonia last week, responded well to IV Levaquin, and was discharged home. Unfortunately, she started having a decline in her status including confusion, increase in fevers, pulse rate, respiratory rate, and she was brought back with a worsening pneumonia. At the time Naveed saw her for admission, her white count was back up around 25,000. Her CRP is 32. I do not believe she was febrile at the time. She was admitted and after consultation due to bronchiectasis, we put her on IV vancomycin and Rocephin. O: GENERAL: On exam today, she is lying comfortably in her recliner. LUNGS: She is not breathing tachypneic and her breathing is quiet. She does have some basilar rales on the right, but overall pretty adequate air movement. No audible wheezing. CARDIAC: Tones are regular. ABDOMEN: Soft. EXTREMITIES: She has no peripheral edema. ASSESSMENT: 1. PNEUMONIA. 2. BRONCHIECTASIS VIA CT SCAN. 3. DOWN SYNDROME. 4. TYPE 2 DIABETES, REQUIRING INSULIN. 5. HYPOTHYROIDISM. 6. DEMENTIA. P: We will continue with IV antibiotics, routine lab every day for now, and we will continue to monitor closely. Family is present in the room and agree with all cares. SAFIA/CAROL ANN /[id number]
[2021-06-05] MEDS: VANCOmycin 1 GM/200 ML 1 GM in Premix Bag 1 BAG IV SCH (16:49)
[2021-06-05] MEDS: cefTRIAXone 1 GM Vial IVPUSH SCH (16:49)
[2021-06-05] MEDS: Nystatin Crm 30 GM Tube TOP SCH (19:56)
[2021-06-05] MEDS: Loratadine 10 MG Tab PO SCH (19:57)
[2021-06-05] MEDS: Donepezil 5 MG Tab PO SCH (19:57)
[2021-06-05] MEDS: Enoxaparin 30 MG/0.3 ML Syringe SUBCUT SCH (19:58)
[2021-06-05] MEDS: Melatonin 3 MG Tab PO SCH (19:58)
[2021-06-05] MEDS ORDERED: Acetaminophen 650 MG Supp RECTAL PRN (20:07)
[2021-06-06] MEDS ORDERED: diphenhydrAMINE 50 MG/ML SDV IVPUSH ONE (00:19)
[2021-06-06] MEDS: Sodium Chloride 0.9% 1,000 ML IV SCH ×2 (00:21→09:08)
[2021-06-06] MEDS ORDERED: diphenhydrAMINE 25 MG Cap ONE (00:22)
[2021-06-06] MEDS ORDERED: diphenhydrAMINE 50 MG/ML SDV ONE (00:36)
[2021-06-06] MEDS: Albuterol/Ipratropium 3.0-0.5 MG/3 ML Neb Soln INH PRN ×3 (00:53→19:30)
[2021-06-06] MEDS ORDERED: Codeine/Promethazine 10-6.25 MG/5 ML Syrup 5 ML UD Cup PO PRN (07:53)
[2021-06-06 08:23] LABS: CHLORIDE,CL 108 mEq/L (98-106); SODIUM,NA 143 mEq/L (136-145)
[2021-06-06] MEDS: Aspirin 81 MG Tab.EC PO SCH (08:28)
[2021-06-06] MEDS: Potassium Chloride 10 MEQ Tab.ER PO SCH ×2 (08:28→17:53)
[2021-06-06] MEDS: Acetaminophen 500 MG Tab PO SCH ×3 (08:28→19:31)
[2021-06-06] MEDS: Gentian Violet 59 ML Bottle TOP SCH ×2 (08:28→19:32)
[2021-06-06] MEDS: Levothyroxine 125 MCG Tab PO SCH (08:28)
[2021-06-06] MEDS: Nystatin Crm 30 GM Tube TOP SCH ×3 (08:29→20:51)
--- NOTE | 2021-06-06 08:34 | PCM.PN ---
- General Info Date of Service: 06/06/21 Admission Dx/Problem (Free Text): RML and RLL Pneumonia Brochiectasis Subjective Update: Patient up in recliner, has rested well since around 0300. Was given Benadryl as was restless, uncooperative prior to that. Sister had reported that she normally does get Tylenol PM at bedtime but had not been taking her meds. Is angry initially this am about the blood draw. Is eating her breakfast with help from sister, did take her meds. Has harsh barky cough. Spiked a temp of 100.1 last evening. Blood pressure stable. Oxygen sat around 90% but refuses to wear her oxygen. Is aware that if she eats and drinks better, may be able to discontinue the IV fluids. Functional Status: Reports: Pain Controlled, Tolerating Diet, Urinating. Denies: Ambulating - Review of Systems General: Reports: Fever, Weakness, Fatigue, Malaise HEENT: Reports: Rhinitis. Denies: Ear Pain Pulmonary: Reports: Cough, Sputum. Denies: Shortness of Breath Cardiovascular: Denies: Chest Pain Gastrointestinal: Denies: Abdominal Pain, Nausea, Vomiting Genitourinary: Reports: Incontinence Musculoskeletal: Reports: No Symptoms Skin: Reports: Other (chronic dusky appearance to hands and feet) Neurological: Reports: No Symptoms Psychiatric: Reports: Anxiety - Patient Data Vitals - Most Recent: Last Vital Signs Temp 98.2 F 06/05/21 22:12 Pulse 91 06/05/21 22:12 Resp 20 06/05/21 22:12 BP 118/54 L 06/05/21 22:12 Pulse Ox 90 L 06/05/21 22:12 Weight - Most Recent: 121 lb 6.4 oz I&O - Last 24 Hours: Intake & Output 06/05/21 06/06/21 06/06/21 22:59 06:59 14:59 Intake Total 1000 702 Balance 1000 702 Lab Results Last 24 Hours: Laboratory Results - last 24 hr 06/05/21 06/05/21 06/05/21 Range/Units 12:05 17:31 20:03 WBC (4.0-11.0) 10^3/uL RBC (4.00-5.50) x10^6/uL Hgb (12.0-16.0) g/dL Hct (37.0-47.0) % MCV (83.0-97.0) fL MCH (27.0-32.0) pg MCHC (32.0-36.0) g/dL RDW Coeff of Dav (11.0-15.0) % Plt Count (150-400) 10^3/uL Immature Gran % (Auto) (0.0-4.9) % Neut % (Auto) (41-71) % Lymph % (Auto) (24-44) % [place] % (Auto) (0-10) % Eos % (Auto) (0-6) % Baso % (Auto) (0-1) % Neut # (Auto) (1.80-8.00) x10^3/uL Lymph # (Auto) (0.60-5.00) 10^3/uL [place] # (Auto) (0.00-1.50) 10^3/uL Eos # (Auto) (0.00-1.50) 10^3/uL Baso # (Auto) (0.00-0.50) 10^3/uL Immature Gran # (Auto) (0.00-0.49) 10^3/uL POC Glucose 241 H 168 H 165 H (75-105) mg/dL 06/06/ Range/Units 08:00 WBC 20.5 H* (4.0-11.0) 10^3/uL RBC 3.51 L (4.00-5.50) x10^6/uL Hgb 11.4 L (12.0-16.0) g/dL Hct 35.1 L (37.0-47.0) % MCV 100.0 H (83.0-97.0) fL MCH 32.5 H (27.0-32.0) pg MCHC 32.5 (32.0-36.0) g/dL RDW Coeff of Dav 14.6 (11.0-15.0) % Plt Count 335 (150-400) 10^3/uL Immature Gran % (Auto) 0.7 (0.0-4.9) % Neut % (Auto) 91.0 H (41-71) % Lymph % (Auto) 4.5 L (24-44) % [place] % (Auto) 3.8 (0-10) % Eos % (Auto) 0.0 (0-6) % Baso % (Auto) 0.0 (0-1) % Neut # (Auto) 18.65 H (1.80-8.00) x10^3/uL Lymph # (Auto) 0.92 (0.60-5.00) 10^3/uL [place] # (Auto) 0.79 (0.00-1.50) 10^3/uL Eos # (Auto) 0.01 (0.00-1.50) 10^3/uL Baso # (Auto) 0.01 (0.00-0.50) 10^3/uL Immature Gran # (Auto) 0.15 (0.00-0.49) 10^3/uL POC Glucose (75-105) mg/dL Marco A Results Last 24 Hours: Microbiology 06/05/21 10:17 Wound Culture - Preliminary Wrist, Left NO GROWTH AFTER 1 DAY 06/04/21 16:35 Aerobic Blood Culture - Preliminary Blood - Venous NO GROWTH AFTER 1 DAY Anaerobic Blood Culture - Preliminary NO GROWTH AFTER 1 DAY 06/04/21 16:40 Aerobic Blood Culture - Preliminary Blood - Venous - Lab Draw NO GROWTH AFTER 1 DAY Anaerobic Blood Culture - Preliminary NO GROWTH AFTER 1 DAY 06/04/21 16:35 MRSA Culture - Final Nasal, Unspecified NO MRSA ISOLATED Med Orders - Current: Current Medications Acetaminophen (Acetaminophen 500 Mg Tab) 1,000 mg PO TID [facility] Last Admin: 06/05/21 20:06 Dose: Not Given Documented by: Acetaminophen (Acetaminophen 650 Mg Supp) 650 mg RECTAL Q6H PRN PRN Reason: Fever Albuterol/Ipratropium (Albuterol/Ipratropium 3.0-0.5 Mg/3 Ml Neb Soln) 3 ml INH QID PRN PRN Reason: Wheezing Last Admin: 06/06/21 00:53 Dose: 3 ml Documented by: Artificial Tears (Polyvinyl Alcohol 1.4% Ophth Soln 15 Ml Bottle) 0 ml EYEBOTH TID PRN PRN Reason: Dry Eyes Aspirin (Aspirin 81 Mg Tab.Ec) 81 mg PO DAILY [facility] Last Admin: 06/05/21 08:13 Dose: 81 mg Documented by: Ceftriaxone Sodium (Ceftriaxone 1 Gm Vial) 1 gm IVPUSH Q24H [facility] Last Admin: 06/05/21 16:49 Dose: 1 gm Documented by: Docusate Sodium (Docusate Sodium 100 Mg Cap) 100 mg PO BID PRN PRN Reason: Constipation Donepezil HCl (Donepezil 5 Mg Tab) 5 mg PO BEDTIME [facility] Last Admin: 06/05/21 19:57 Dose: Not Given Documented by: Enoxaparin Sodium (Enoxaparin 30 Mg/0.3 Ml Syringe) 30 mg SUBCUT Q24H [facility] Last Admin: 06/05/21 19:58 Dose: 30 mg Documented by: Gentian Yanely (Gentian Yanely 59 Ml Bottle) 0 ml TOP BID [facility] Stop: 06/11/21 20:01 Last Admin: 06/05/21 19:57 Dose: 1 swab Documented by: Sodium Chloride (Normal Saline) 1,000 mls @ 125 mls/hr IV ASDIRECTED [facility] Last Admin: 06/06/21 00:21 Dose: 125 mls/hr Documented by: Vancomycin HCl 1 gm/ Premix 200 mls @ 200 mls/hr IV Q24H [facility] Last Admin: 06/05/21 16:49 Dose: 200 mls/hr Documented by: Insulin Glargine (Insulin Glarg,Human.Rec.Analog 100 Unit/Ml) 11 unit SUBCUT BID [facility] Last Admin: 06/05/21 21:06 Dose: Not Given Documented by: Insulin Human Lispro (Insulin Lispro 100 Units/Ml 3 Ml Vial) 5 unit SUBCUT WITHBREAKFAST [facility] Last Admin: 06/05/21 08:50 Dose: 5 unit Documented by: Insulin Human Lispro (Insulin Lispro 100 Units/Ml 3 Ml Vial) 4 unit SUBCUT WITHLUNCH [facility] Last Admin: 06/05/21 12:19 Dose: 4 unit Documented by: Insulin Human Lispro (Insulin Lispro 100 Units/Ml 3 Ml Vial) 4 unit SUBCUT WITHDINNER [facility] Last Admin: 06/05/21 17:43 Dose: Not Given Documented by: Insulin Human Lispro (Insulin Lispro 100 Units/Ml 3 Ml Vial) 4 unit SUBCUT ASDIRECTED PRN PRN Reason: Blood Glucose Levothyroxine Sodium (Levothyroxine 125 Mcg Tab) 125 mcg PO ACBREAKFAST [facility] Last Admin: 06/05/21 06:37 Dose: 125 mcg Documented by: Loratadine (Loratadine 10 Mg Tab) 10 mg PO BEDTIME [facility] Last Admin: 06/05/21 19:57 Dose: Not Given Documented by: Melatonin (Melatonin 3 Mg Tab) 9 mg PO BEDTIME [facility] Last Admin: 06/05/21 19:58 Dose: Not Given Documented by: Nystatin (Nystatin Topical Powder 15 Gm Bottle) 0 gm TOP BID PRN PRN Reason: Wound Care Nystatin (Nystatin Crm 30 Gm Tube) 1 gm TOP TID [facility] Last Admin: 06/05/21 19:56 Dose: 1 applic Documented by: Potassium Chloride (Potassium Chloride 10 Meq Tab.Er) 10 meq PO BIDMEALS [facility] Last Admin: 06/05/21 16:59 Dose: 10 meq Documented by: Promethazine HCl/Codeine (Codeine/Promethazine 10-6.25 Mg/5 Ml Syrup 5 Ml Ud Cup) 10 ml PO Q6H PRN PRN Reason: Cough Sodium Chloride (Sodium Chloride 0.9% 10 Ml Syringe) 10 ml FLUSH ASDIRECTED PRN PRN Reason: Keep Vein Open Discontinued Medications Acetaminophen (Acetaminophen 325 Mg Tab) 650 mg PO Q4H PRN PRN Reason: Pain (Mild 1-3)/fever Diphenhydramine HCl (Diphenhydramine 25 Mg Cap) Confirm Administered Dose 25 mg .ROUTE .STK-MED ONE Stop: 06/06/21 00:23 Last Admin: 06/06/21 00:20 Dose: Not Given Documented by: Diphenhydramine HCl (Diphenhydramine 50 Mg/Ml Sdv) Confirm Administered Dose 50 mg .ROUTE .STK-MED ONE Stop: 06/06/21 00:37 Last Admin: 06/06/21 00:20 Dose: Not Given Documented by: Diphenhydramine HCl (Diphenhydramine 50 Mg/Ml Sdv) 25 mg IVPUSH ONETIME ONE Stop: 06/06/21 00:20 Last Admin: 06/06/21 00:28 Dose: 25 mg Documented by: - Exam General: Alert, Other (uncooperative at times) HEENT: Mucous Membr. Moist/[place] Neck: Supple Lungs: Decreased Breath Sounds, Crackles (RLL) Cardiovascular: Regular Rate, Regular Rhythm GI/Abdominal Exam: Normal Bowel Sounds, Soft, Non-Tender Extremities: Other (hands and feet are dusky but warm) Skin: Warm, Dry Neurological: No New Focal Deficit - Patient Data Lab Results Last 24 hrs: Laboratory Results - last 24 hr 06/05/21 06/05/21 06/05/21 Range/Units 12:05 17:31 20:03 WBC (4.0-11.0) 10^3/uL RBC (4.00-5.50) x10^6/uL Hgb (12.0-16.0) g/dL Hct (37.0-47.0) % MCV (83.0-97.0) fL MCH (27.0-32.0) pg MCHC (32.0-36.0) g/dL RDW Coeff of Dav (11.0-15.0) % Plt Count (150-400) 10^3/uL Immature Gran % (Auto) (0.0-4.9) % Neut % (Auto) (41-71) % Lymph % (Auto) (24-44) % [place] % (Auto) (0-10) % Eos % (Auto) (0-6) % Baso % (Auto) (0-1) % Neut # (Auto) (1.80-8.00) x10^3/uL Lymph # (Auto) (0.60-5.00) 10^3/uL [place] # (Auto) (0.00-1.50) 10^3/uL Eos # (Auto) (0.00-1.50) 10^3/uL Baso # (Auto) (0.00-0.50) 10^3/uL Immature Gran # (Auto) (0.00-0.49) 10^3/uL POC Glucose 241 H 168 H 165 H (75-105) mg/dL 06/06/21 Range/Units 08:00 WBC 20.5 H* (4.0-11.0) 10^3/uL RBC 3.51 L (4.00-5.50) x10^6/uL Hgb 11.4 L (12.0-16.0) g/dL Hct 35.1 L (37.0-47.0) % MCV 100.0 H (83.0-97.0) fL MCH 32.5 H (27.0-32.0) pg MCHC 32.5 (32.0-36.0) g/dL RDW Coeff of Dav 14.6 (11.0-15.0) % Plt Count 335 (150-400) 10^3/uL Immature Gran % (Auto) 0.7 (0.0-4.9) % Neut % (Auto) 91.0 H (41-71) % Lymph % (Auto) 4.5 L (24-44) % [place] % (Auto) 3.8 (0-10) % Eos % (Auto) 0.0 (0-6) % Baso % (Auto) 0.0 (0-1) % Neut # (Auto) 18.65 H (1.80-8.00) x10^3/uL Lymph # (Auto) 0.92 (0.60-5.00) 10^3/uL [place] # (Auto) 0.79 (0.00-1.50) 10^3/uL Eos # (Auto) 0.01 (0.00-1.50) 10^3/uL Baso # (Auto) 0.01 (0.00-0.50) 10^3/uL Immature Gran # (Auto) 0.15 (0.00-0.49) 10^3/uL POC Glucose (75-105) mg/dL Result Diagrams: 06/06/21 08:00 06/06/21 08:00 Marco A Results Last 24 hrs: Microbiology 06/05/21 10:17 Wound Culture - Preliminary Wrist, Left NO GROWTH AFTER 1 DAY 06/04/21 16:35 Aerobic Blood Culture - Preliminary Blood - Venous NO GROWTH AFTER 1 DAY Anaerobic Blood Culture - Preliminary NO GROWTH AFTER 1 DAY 06/04/21 16:40 Aerobic Blood Culture - Preliminary Blood - Venous - Lab Draw NO GROWTH AFTER 1 DAY Anaerobic Blood Culture - Preliminary NO GROWTH AFTER 1 DAY 06/04/21 16:35 MRSA Culture - Final Nasal, Unspecified NO MRSA ISOLATED Sepsis Event Note - Evaluation Sepsis Screening Result: No Definite Risk - Focused Exam Vital Signs: Vital Signs Temp Pulse Resp BP Pulse Ox 06/05/21 22:12 98.2 F 91 20 118/54 L 90 L - Problem List & Annotations (1) Pneumonia SNOMED Code(s): 229631078 Code(s): J18.9 - PNEUMONIA, UNSPECIFIED ORGANISM Status: Acute Priority: High Current Visit: Yes Qualifiers: Pneumonia type: due to other aerobic Gram-negative bacteria Laterality: right Lung location: lower lobe of lung Qualified Code(s): J15.6 - Pneumonia due to other Gram-negative bacteria (2) Generalized weakness SNOMED Code(s): 91767989 Code(s): R53.1 - WEAKNESS Status: Acute Priority: High Current Visit: Yes (3) Diabetes mellitus type 2 SNOMED Code(s): 42235708 Code(s): E11.9 - TYPE 2 DIABETES MELLITUS WITHOUT COMPLICATIONS Status: Chronic Priority: Medium Current Visit: Yes - Problem List Review Problem List Initiated/Reviewed/Updated: Yes - My Orders Last 24 Hours: My Active Orders 06/05/21 20:00 Nystatin [Nystatin Crm] 1 gm TOP TID 06/06/21 07:53 Codeine/Promethazine [Phenergan with Codeine] 10 ml PO Q6H PRN - Assessment Assessment:: RML and RLL pneumonia Type 2 DM - Plan Plan:: Patient alert, eating today. WBC down to 20, CRP slightly improved at 25. Does continue to have persistent cough. Continue to try to obtain good sputum specimen. Decrease IV fluids to 50 ml/hr as is now taking oral fluids. continue IV vancomycin and rocephin. Repeat labs in am.
[2021-06-06] MEDS: Insulin Glarg,Human.Rec.Analog 100 Unit/ML SUBCUT SCH ×2 (08:36→20:22)
[2021-06-06] MEDS: Insulin Lispro 100 Units/ML 3 ML Vial SUBCUT SCH ×4 (08:36→17:53)
[2021-06-06] MEDS: cefTRIAXone 1 GM Vial IVPUSH SCH (16:10)
[2021-06-06] MEDS: VANCOmycin 1 GM/200 ML 1 GM in Premix Bag 1 BAG IV SCH (16:10)
[2021-06-06] MEDS: Enoxaparin 30 MG/0.3 ML Syringe SUBCUT SCH (19:30)
[2021-06-06] MEDS: Donepezil 5 MG Tab PO SCH (19:31)
[2021-06-06] MEDS: Loratadine 10 MG Tab PO SCH (19:31)
[2021-06-06] MEDS: Melatonin 3 MG Tab PO SCH (20:22)
[2021-06-07 07:25] LABS: CHLORIDE,CL 103 mEq/L (98-106); SODIUM,NA 138 mEq/L (136-145)
[2021-06-07 07:44] VITALS: BP 147/66; PULSE 74
[2021-06-07] MEDS: Gentian Violet 59 ML Bottle TOP SCH (08:01)
[2021-06-07] MEDS: Acetaminophen 500 MG Tab PO SCH (08:02)
[2021-06-07] MEDS: Aspirin 81 MG Tab.EC PO SCH (08:02)
[2021-06-07] MEDS: Potassium Chloride 10 MEQ Tab.ER PO SCH (08:03)
[2021-06-07] MEDS: Levothyroxine 125 MCG Tab PO SCH (08:03)
[2021-06-07] MEDS: Insulin Lispro 100 Units/ML 3 ML Vial SUBCUT SCH (08:03)
[2021-06-07] MEDS: Nystatin Crm 30 GM Tube TOP SCH (08:03)
[2021-06-07] MEDS: Insulin Glarg,Human.Rec.Analog 100 Unit/ML SUBCUT SCH (08:54)
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
== END 2021-06-07 11:10 | DRG 178 ==
LOC: CC.FCMC 13:19 → CC.MS 13:19 → UNDOADMIN 15:59 → CC.MS 15:59
PROVIDERS: ADMIT Physician Assistant Medical; ATTEND Family Medicine
DX: J15.6 Pneumonia due to other Gram-negative bacteria (principal); B37.0 Candidal stomatitis; J47.9 Bronchiectasis, uncomplicated; R53.1 Weakness; E11.9 Type 2 diabetes mellitus without complications; Z79.4 Long term (current) use of insulin; E03.9 Hypothyroidism, unspecified; F41.9 Anxiety disorder, unspecified; K21.9 Gastro-esophageal reflux disease without esophagitis; Z20.822 Contact with and (suspected) exposure to COVID-19; F03.90 Unspecified dementia, unspecified severity, without behavioral disturbance, psychotic disturbance, mood disturbance, and anxiety; E78.00 Pure hypercholesterolemia, unspecified; G47.00 Insomnia, unspecified; Z88.8 Allergy status to other drugs, medicaments and biological substances; Z88.1 Allergy status to other antibiotic agents; Z88.0 Allergy status to penicillin; Z87.440 Personal history of urinary (tract) infections; Q90.9 Down syndrome, unspecified
CPT/HCPCS: 36415; 71046; 80048; 80053; 82150; 82947; 83605; 83690; 85025; 85651; 86140; 87040; 87070; A9270-GY; J0696; J1200; J1650; J1815-GY; J3370; J7030; J7620-GY; U0002

== ENCOUNTER 2021-06-07 11:08 | Inpatient (IN) | payer MEDICARE, MEDICAID ==
[2021-06-07] MEDS ORDERED: Polyvinyl Alcohol 1.4% Ophth Soln 15 ML Bottle EYEBOTH PRN (12:08)
[2021-06-07] MEDS ORDERED: Nystatin Topical Powder 15 GM Bottle TOP PRN (12:08)
[2021-06-07] MEDS ORDERED: 50% Dextrose in Water 50 ML Syringe IVPUSH PRN (12:08)
[2021-06-07] MEDS ORDERED: Codeine/Promethazine 10-6.25 MG/5 ML Syrup 5 ML UD Cup PO PRN (12:08)
[2021-06-07] MEDS ORDERED: Sodium Chloride 0.9% 10 ML Syringe FLUSH PRN ×2 (12:08)
[2021-06-07] MEDS ORDERED: Docusate Sodium 100 MG Cap PO PRN (12:08)
[2021-06-07] MEDS ORDERED: Insulin Lispro 100 Units/ML 3 ML Vial SUBCUT PRN (12:08)
[2021-06-07] MEDS: Insulin Lispro 100 Units/ML 3 ML Vial SUBCUT SCH ×2 (12:15→17:30)
[2021-06-07] MEDS: Albuterol/Ipratropium 3.0-0.5 MG/3 ML Neb Soln INH PRN ×2 (14:44→21:17)
[2021-06-07] MEDS: Nystatin Crm 30 GM Tube TOP SCH ×2 (14:44→21:15)
[2021-06-07] MEDS: Acetaminophen 500 MG Tab PO SCH ×2 (14:44→21:16)
[2021-06-07] MEDS ORDERED: VANCOmycin 1 GM/200 ML 1 GM in Premix Bag 1 BAG IV SCH ×2 (16:00→16:30)
[2021-06-07] MEDS: cefTRIAXone 1 GM Vial IVPUSH SCH (16:26)
[2021-06-07] MEDS: Potassium Chloride 10 MEQ Tab.ER PO SCH (17:30)
[2021-06-07] MEDS ORDERED: Menthol/Zinc Oxide Ointment 113 GM Tube TOP ONE (21:07)
[2021-06-07] MEDS: Gentian Violet 59 ML Bottle TOP SCH (21:13)
[2021-06-07] MEDS: Donepezil 5 MG Tab PO SCH (21:13)
[2021-06-07] MEDS: Loratadine 10 MG Tab PO SCH (21:13)
[2021-06-07] MEDS: Insulin Glarg,Human.Rec.Analog 100 Unit/ML SUBCUT SCH (21:14)
[2021-06-07] MEDS: Melatonin 3 MG Tab PO SCH (21:15)
[2021-06-07] MEDS: Enoxaparin 40 MG/0.4 ML Syringe SUBCUT SCH (21:15)
[2021-06-07] MEDS ORDERED: Menthol/Zinc Oxide Ointment 113 GM Tube TOP PRN (21:17)
[2021-06-08] MEDS: Nystatin Crm 30 GM Tube TOP SCH ×3 (07:54→21:20)
[2021-06-08] MEDS: Levothyroxine 125 MCG Tab PO SCH (07:55)
[2021-06-08] MEDS: Aspirin 81 MG Tab.EC PO SCH (07:55)
[2021-06-08] MEDS: Potassium Chloride 10 MEQ Tab.ER PO SCH ×2 (07:55→17:23)
[2021-06-08] MEDS: Acetaminophen 500 MG Tab PO SCH ×3 (07:55→20:42)
[2021-06-08] MEDS: Insulin Lispro 100 Units/ML 3 ML Vial SUBCUT SCH ×3 (07:57→17:30)
[2021-06-08] MEDS: Insulin Glarg,Human.Rec.Analog 100 Unit/ML SUBCUT SCH ×2 (07:58→21:21)
[2021-06-08] MEDS: VANCOmycin 1 GM/200 ML 1 GM in Premix Bag 1 BAG IV SCH ×2 (07:58→21:20)
[2021-06-08] MEDS: Gentian Violet 59 ML Bottle TOP SCH ×2 (07:59→21:22)
[2021-06-08] MEDS: cefTRIAXone 1 GM Vial IVPUSH SCH (15:40)
[2021-06-08] MEDS: risperiDONE 0.25 MG Tab PO SCH (20:42)
[2021-06-08] MEDS: Melatonin 3 MG Tab PO SCH (20:42)
[2021-06-08] MEDS: Enoxaparin 40 MG/0.4 ML Syringe SUBCUT SCH (20:43)
[2021-06-08] MEDS: Donepezil 5 MG Tab PO SCH (20:43)
[2021-06-08] MEDS: Loratadine 10 MG Tab PO SCH (20:43)
[2021-06-09] MEDS: Aspirin 81 MG Tab.EC PO SCH (08:27)
[2021-06-09] MEDS: Potassium Chloride 10 MEQ Tab.ER PO SCH (08:28)
[2021-06-09] MEDS: Levothyroxine 125 MCG Tab PO SCH (08:28)
[2021-06-09] MEDS: Acetaminophen 500 MG Tab PO SCH ×3 (08:28→19:44)
[2021-06-09] MEDS: risperiDONE 0.25 MG Tab PO SCH ×2 (08:28→19:44)
[2021-06-09] MEDS: Gentian Violet 59 ML Bottle TOP SCH ×2 (08:29→19:49)
[2021-06-09] MEDS: Insulin Lispro 100 Units/ML 3 ML Vial SUBCUT SCH ×3 (08:30→17:52)
[2021-06-09] MEDS: Insulin Glarg,Human.Rec.Analog 100 Unit/ML SUBCUT SCH ×2 (08:32→19:47)
[2021-06-09] MEDS: Nystatin Crm 30 GM Tube TOP SCH ×3 (08:32→19:40)
[2021-06-09] MEDS: VANCOmycin 1 GM/200 ML 1 GM in Premix Bag 1 BAG IV SCH ×2 (10:51→19:51)
[2021-06-09] MEDS: cefTRIAXone 1 GM Vial IVPUSH SCH (15:02)
[2021-06-09] MEDS: Enoxaparin 40 MG/0.4 ML Syringe SUBCUT SCH (19:38)
[2021-06-09] MEDS: Melatonin 3 MG Tab PO SCH (19:38)
[2021-06-09] MEDS: Donepezil 5 MG Tab PO SCH (19:46)
[2021-06-09] MEDS: Loratadine 10 MG Tab PO SCH (19:47)
[2021-06-10] MEDS: Levothyroxine 125 MCG Tab PO SCH (08:24)
[2021-06-10] MEDS: risperiDONE 0.25 MG Tab PO SCH ×3 (08:24→22:48)
[2021-06-10] MEDS: Aspirin 81 MG Tab.EC PO SCH (08:24)
[2021-06-10] MEDS: Gentian Violet 59 ML Bottle TOP SCH ×2 (08:25→09:19)
[2021-06-10] MEDS: Insulin Lispro 100 Units/ML 3 ML Vial SUBCUT SCH ×3 (08:26→17:51)
[2021-06-10] MEDS: Insulin Glarg,Human.Rec.Analog 100 Unit/ML SUBCUT SCH ×2 (08:27→20:58)
[2021-06-10] MEDS: Nystatin Crm 30 GM Tube TOP SCH ×3 (08:27→19:34)
[2021-06-10] MEDS: Potassium Chloride 10 MEQ Tab.ER PO SCH (08:29)
[2021-06-10] MEDS: Acetaminophen 500 MG Tab PO SCH ×3 (08:45→21:05)
[2021-06-10] MEDS: VANCOmycin 1 GM/200 ML 1 GM in Premix Bag 1 BAG IV SCH (09:19)
[2021-06-10] MEDS: cefTRIAXone 1 GM Vial IVPUSH SCH (17:13)
[2021-06-10] MEDS: Enoxaparin 40 MG/0.4 ML Syringe SUBCUT SCH (19:39)
[2021-06-10] MEDS: Loratadine 10 MG Tab PO SCH ×2 (20:47→22:49)
[2021-06-10] MEDS: Melatonin 3 MG Tab PO SCH ×2 (20:47→22:49)
[2021-06-10] MEDS: Donepezil 5 MG Tab PO SCH (20:48)
[2021-06-11] MEDS: Acetaminophen 500 MG Tab PO SCH ×5 (08:17→20:59)
[2021-06-11] MEDS: Levothyroxine 125 MCG Tab PO SCH (08:17)
[2021-06-11] MEDS: Aspirin 81 MG Tab.EC PO SCH (08:18)
[2021-06-11] MEDS: risperiDONE 0.25 MG Tab PO SCH ×2 (08:18→19:39)
[2021-06-11] MEDS: Insulin Lispro 100 Units/ML 3 ML Vial SUBCUT SCH ×3 (08:18→18:03)
[2021-06-11 08:22] LABS: CHLORIDE,CL 99 mEq/L (98-106); SODIUM,NA 135 mEq/L (136-145)
[2021-06-11] MEDS: Nystatin Crm 30 GM Tube TOP SCH ×3 (08:44→19:40)
[2021-06-11] MEDS: Insulin Glarg,Human.Rec.Analog 100 Unit/ML SUBCUT SCH ×2 (12:01→20:37)
[2021-06-11] MEDS: cefTRIAXone 1 GM Vial IVPUSH SCH (15:41)
[2021-06-11] MEDS: Enoxaparin 40 MG/0.4 ML Syringe SUBCUT SCH (19:31)
[2021-06-11] MEDS: Donepezil 5 MG Tab PO SCH (19:38)
[2021-06-11] MEDS: Melatonin 3 MG Tab PO SCH (19:38)
[2021-06-11] MEDS: Loratadine 10 MG Tab PO SCH (19:39)
[2021-06-12] MEDS: Aspirin 81 MG Tab.EC PO SCH (08:03)
[2021-06-12] MEDS: Acetaminophen 500 MG Tab PO SCH ×3 (08:04→19:37)
[2021-06-12] MEDS: risperiDONE 0.25 MG Tab PO SCH ×2 (08:04→19:38)
[2021-06-12] MEDS: Levothyroxine 125 MCG Tab PO SCH (08:05)
[2021-06-12] MEDS: Nystatin Crm 30 GM Tube TOP SCH ×3 (08:52→19:39)
[2021-06-12] MEDS ORDERED: Glucagon,Human Recombinant 1 MG Vial IM PRN (09:50)
[2021-06-12] MEDS ORDERED: 50% Dextrose in Water 50 ML Syringe IVPUSH PRN (09:50)
[2021-06-12] MEDS: Dextrose 5%-0.45% NaCl 1,000 ML IV SCH (10:44)
[2021-06-12 10:53] LABS: CHLORIDE,CL 105 mEq/L (98-106); SODIUM,NA 145 mEq/L (136-145)
[2021-06-12] MEDS: Insulin Glarg,Human.Rec.Analog 100 Unit/ML SUBCUT SCH ×2 (11:42→20:38)
[2021-06-12] MEDS: Insulin Lispro 100 Units/ML 3 ML Vial SUBCUT SCH ×4 (11:42→20:36)
[2021-06-12] MEDS: cefTRIAXone 1 GM Vial IVPUSH SCH (17:46)
[2021-06-12] MEDS: Enoxaparin 40 MG/0.4 ML Syringe SUBCUT SCH (19:36)
[2021-06-12] MEDS: Loratadine 10 MG Tab PO SCH (19:38)
[2021-06-12] MEDS: Donepezil 5 MG Tab PO SCH (19:38)
[2021-06-12] MEDS: Melatonin 3 MG Tab PO SCH (19:38)
[2021-06-12] MEDS ORDERED: Sodium Chloride 0.9% 250 ML ONE (20:00)
[2021-06-13] MEDS: Dextrose 5%-0.45% NaCl 1,000 ML IV SCH ×2 (02:10→17:53)
[2021-06-13] MEDS ORDERED: Sodium Chloride 0.9% 250 ML ONE ×2 (06:59→19:19)
[2021-06-13] MEDS: Acetaminophen 500 MG Tab PO SCH ×3 (08:13→20:36)
[2021-06-13] MEDS: risperiDONE 0.25 MG Tab PO SCH ×2 (08:14→21:19)
[2021-06-13] MEDS: Levothyroxine 125 MCG Tab PO SCH (08:15)
[2021-06-13] MEDS: Aspirin 81 MG Tab.EC PO SCH (08:15)
[2021-06-13] MEDS: Potassium Chloride 10 MEQ Tab.ER PO SCH (08:16)
[2021-06-13] MEDS: Nystatin Crm 30 GM Tube TOP SCH ×3 (08:17→20:35)
[2021-06-13] MEDS: Insulin Lispro 100 Units/ML 3 ML Vial SUBCUT SCH ×4 (08:30→21:20)
[2021-06-13] MEDS: Insulin Glarg,Human.Rec.Analog 100 Unit/ML SUBCUT SCH ×2 (08:31→21:19)
[2021-06-13] MEDS: cefTRIAXone 1 GM Vial IVPUSH SCH (16:17)
[2021-06-13] MEDS: Enoxaparin 40 MG/0.4 ML Syringe SUBCUT SCH (20:34)
[2021-06-13] MEDS: Donepezil 5 MG Tab PO SCH (20:35)
[2021-06-13] MEDS: Loratadine 10 MG Tab PO SCH (20:35)
[2021-06-13] MEDS: Melatonin 3 MG Tab PO SCH (20:35)
[2021-06-14] MEDS ORDERED: Sodium Chloride 0.9% 250 ML ONE ×2 (07:00→19:54)
[2021-06-14] MEDS: Dextrose 5%-0.45% NaCl 1,000 ML IV SCH (08:11)
[2021-06-14] MEDS: Potassium Chloride 10 MEQ Tab.ER PO SCH (08:17)
[2021-06-14] MEDS: Acetaminophen 500 MG Tab PO SCH ×4 (08:17→19:43)
[2021-06-14] MEDS: Levothyroxine 125 MCG Tab PO SCH (08:18)
[2021-06-14] MEDS: Aspirin 81 MG Tab.EC PO SCH (08:18)
[2021-06-14] MEDS: risperiDONE 0.25 MG Tab PO SCH ×2 (08:18→19:43)
[2021-06-14] MEDS: Insulin Glarg,Human.Rec.Analog 100 Unit/ML SUBCUT SCH ×2 (08:20→19:54)
[2021-06-14] MEDS: Insulin Lispro 100 Units/ML 3 ML Vial SUBCUT SCH ×4 (08:21→21:45)
[2021-06-14] MEDS: Nystatin Crm 30 GM Tube TOP SCH ×3 (09:56→19:55)
--- NOTE | 2021-06-14 11:40 | PCM.PN ---
- General Info Date of Service: 06/13/21 Admission Dx/Problem (Free Text): Pneumonia Subjective Update: Patient resting quietly. Sister preeti did not sleep much at all last night. Has been restless at times. Still is resistant to cares when awake. Staff reports does not seem different since starting the Risperdal. Has been more lethargic. Not eating and drinking well so was restarted on IV fluids yesterday to see if "would perk her up" per sister. Vitals have remained stable. Still has harsh cough at times. Sister keven did have conference with halfway, unable to take her back due to medical concerns. [facility] was informed. Sister is unsure what she "would like done in regards to fluids as knows she would never tolerate a feeding tube either". Functional Status: Denies: Tolerating Diet, Ambulating - Review of Systems General: Reports: Weakness, Fatigue, Malaise HEENT: Reports: Rhinitis Pulmonary: Reports: Cough Gastrointestinal: Reports: Decreased Appetite Genitourinary: Reports: Incontinence Skin: Reports: Bruising Neurological: Reports: Weakness - Patient Data Vitals - Most Recent: Last Vital Signs Temp 98 F 06/14/21 08:00 Pulse 88 06/14/21 08:00 Resp 20 06/14/21 08:00 BP 156/69 H 06/14/21 08:00 Pulse Ox 91 L 06/14/21 08:00 Weight - Most Recent: 136 lb 1.6 oz I&O - Last 24 Hours: Intake & Output 06/13/21 06/14/21 06/14/21 22:59 06:59 14:59 Intake Total 1000 1000 Balance 1000 1000 Lab Results Last 24 Hours: Laboratory Results - last 24 hr 06/13/21 06/13/21 06/13/21 Range/Units 11:49 17:15 20:45 POC Glucose 288 H 166 H 108 H (75-105) mg/dL 06/14/21 Range/Units 07:47 POC Glucose 320 H (75-105) mg/dL Med Orders - Current: Current Medications Acetaminophen (Acetaminophen 500 Mg Tab) 1,000 mg PO TID [facility] Last Admin: 06/14/21 08:17 Dose: 1,000 mg Documented by: Acetaminophen (Acetaminophen 650 Mg Supp) 650 mg RECTAL Q6H PRN PRN Reason: Fever Albuterol/Ipratropium (Albuterol/Ipratropium 3.0-0.5 Mg/3 Ml Neb Soln) 3 ml INH QID PRN PRN Reason: Wheezing Last Admin: 06/07/21 21:17 Dose: 3 ml Documented by: Artificial Tears (Polyvinyl Alcohol 1.4% Ophth Soln 15 Ml Bottle) 0 ml EYEBOTH TID PRN PRN Reason: Dry Eyes Aspirin (Aspirin 81 Mg Tab.Ec) 81 mg PO DAILY [facility] Last Admin: 06/14/21 08:18 Dose: 81 mg Documented by: Calamine/Phenol (Menthol/Zinc Oxide Ointment 113 Gm Tube) 1 gm TOP Q2H PRN PRN Reason: Other Ceftriaxone Sodium (Ceftriaxone 1 Gm Vial) 1 gm IVPUSH Q24H [facility] Last Admin: 06/13/21 16:17 Dose: 1 gm Documented by: Dextrose/Water (50% Dextrose In Water 50 Ml Syringe) 50 ml IVPUSH ASDIRECTED PRN PRN Reason: Hypoglycemia Docusate Sodium (Docusate Sodium 100 Mg Cap) 100 mg PO BID PRN PRN Reason: Constipation Donepezil HCl (Donepezil 5 Mg Tab) 5 mg PO BEDTIME [facility] Last Admin: 06/13/21 20:35 Dose: Not Given Documented by: Enoxaparin Sodium (Enoxaparin 40 Mg/0.4 Ml Syringe) 40 mg SUBCUT Q24H [facility] Last Admin: 06/13/21 20:34 Dose: 40 mg Documented by: Glucagon (Glucagon,Human Recombinant 1 Mg Vial) 1 mg IM ASDIRECTED PRN PRN Reason: Hypoglycemia Vancomycin HCl 750 mg/ Sodium (Chloride) 250 mls @ 250 mls/hr IV Q12H [facility] Stop: 06/14/21 22:00 Last Admin: 06/14/21 08:18 Dose: 250 mls/hr Documented by: Dextrose/Sodium Chloride (Dextrose 5%-1/2 Ns) 1,000 mls @ 75 mls/hr IV ASDIRECTED [facility] Last Admin: 06/14/21 08:11 Dose: 75 mls/hr Documented by: Insulin Glargine (Insulin Glarg,Human.Rec.Analog 100 Unit/Ml) 11 unit SUBCUT BID [facility] Last Admin: 06/14/21 08:20 Dose: 11 units Documented by: Insulin Human Lispro (Insulin Lispro 100 Units/Ml 3 Ml Vial) 4 unit SUBCUT WITHLUNCH [facility] Last Admin: 06/11/21 12:13 Dose: Not Given Documented by: Insulin Human Lispro (Insulin Lispro 100 Units/Ml 3 Ml Vial) 4 unit SUBCUT WITHDINNER [facility] Last Admin: 06/11/21 18:03 Dose: Not Given Documented by: Insulin Human Lispro (Insulin Lispro 100 Units/Ml 3 Ml Vial) 4 unit SUBCUT ASDIRECTED PRN PRN Reason: Blood Glucose Insulin Human Lispro (Insulin Lispro 100 Units/Ml 3 Ml Vial) 5 unit SUBCUT WITHBREAKFAST [facility] Last Admin: 06/12/21 11:42 Dose: Not Given Documented by: Insulin Human Lispro (Insulin Lispro 100 Units/Ml 3 Ml Vial) 0 unit SUBCUT WI THMEALSANDBED [facility]; Protocol Last Admin: 06/14/21 08:21 Dose: 8 units Documented by: Levothyroxine Sodium (Levothyroxine 125 Mcg Tab) 125 mcg PO ACBREAKFAST [facility] Last Admin: 06/14/21 08:18 Dose: 125 mcg Documented by: Loratadine (Loratadine 10 Mg Tab) 10 mg PO BEDTIME [facility] Last Admin: 06/13/21 20:35 Dose: Not Given Documented by: Melatonin (Melatonin 3 Mg Tab) 9 mg PO BEDTIME [facility] Last Admin: 06/13/21 20:35 Dose: Not Given Documented by: Nystatin (Nystatin Topical Powder 15 Gm Bottle) 0 gm TOP BID PRN PRN Reason: Wound Care Nystatin (Nystatin Crm 30 Gm Tube) 0 gm TOP TID [facility] Last Admin: 06/13/21 20:35 Dose: 1 applic Documented by: Potassium Chloride (Potassium Chloride 10 Meq Tab.Er) 10 meq PO DAILY [facility] Last Admin: 06/14/21 08:17 Dose: 10 meq Documented by: Promethazine HCl/Codeine (Codeine/Promethazine 10-6.25 Mg/5 Ml Syrup 5 Ml Ud Cup) 10 ml PO Q6H PRN PRN Reason: Cough Last Admin: 06/07/21 21:17 Dose: 10 ml Documented by: Risperidone (Risperidone 0.25 Mg Tab) 0.25 mg PO BID [facility] Last Admin: 06/14/21 08:18 Dose: 0.25 mg Documented by: Sodium Chloride (Sodium Chloride 0.9% 10 Ml Syringe) 10 ml FLUSH ASDIRECTED PRN PRN Reason: Keep Vein Open Sodium Chloride (Sodium Chloride 0.9% 10 Ml Syringe) 10 ml FLUSH ASDIRECTED PRN PRN Reason: Keep Vein Open Vancomycin HCl (Pharmacy To Dose - Vancomycin) 1 dose .XX ASDIRECTED KAYLEE Discontinued Medications Calamine/Phenol (Menthol/Zinc Oxide Ointment 113 Gm Tube) Confirm Administered Dose 113 gm TOP .STK-MED ONE Stop: 06/07/21 21:08 Last Admin: 06/07/21 21:16 Dose: Not Given Documented by: Dextrose/Water (50% Dextrose In Water 50 Ml Syringe) 50 ml IVPUSH ASDIRECTED PRN PRN Reason: Hypoglycemia Gentian Yanely (Gentian Yanely 59 Ml Bottle) 0 ml TOP BID KAYLEE Stop: 06/11/21 20:01 Last Admin: 06/10/21 09:19 Dose: Not Given Documented by: Glucagon (Glucagon,Human Recombinant 1 Mg Vial) 1 mg IM ASDIRECTED PRN PRN Reason: Hypoglycemia Vancomycin HCl 1 gm/ Premix 200 mls @ 200 mls/hr IV Q24H [facility] Last Admin: 06/07/21 16:33 Dose: Not Given Documented by: Vancomycin HCl 1 gm/ Premix 200 mls @ 200 mls/hr IV Q12H [facility] Last Admin: 06/07/21 16:25 Dose: 200 mls/hr Documented by: Vancomycin HCl 1 gm/ Premix 200 mls @ 200 mls/hr IV Q12H [facility] Last Admin: 06/10/21 09:19 Dose: Not Given Documented by: Sodium Chloride (Normal Saline Advbag) Confirm Administered Dose 250 mls @ as directed .ROUTE .STK-MED ONE Stop: 06/12/21 20:01 Last Admin: 06/12/21 20:31 Dose: Not Given Documented by: Sodium Chloride (Normal Saline Advbag) Confirm Administered Dose 250 mls @ as directed .ROUTE .STK-MED ONE Stop: 06/13/21 07:00 Last Admin: 06/13/21 06:48 Dose: Not Given Documented by: Sodium Chloride (Normal Saline Advbag) Confirm Administered Dose 250 mls @ as directed .ROUTE .STK-MED ONE Stop: 06/13/21 19:20 Last Admin: 06/14/21 01:32 Dose: Not Given Documented by: Sodium Chloride (Normal Saline Advbag) Confirm Administered Dose 250 mls @ as directed .ROUTE .STK-MED ONE Stop: 06/14/21 07:01 Last Admin: 06/14/21 08:21 Dose: Not Given Documented by: Potassium Chloride (Potassium Chloride 10 Meq Tab.Er) 10 meq PO BIDMEALS KAYLEE Last Admin: 06/09/21 08:28 Dose: 10 meq Documented by: - Exam General: Lethargic HEENT: Other (mucous membranes dry) Neck: Supple Lungs: Decreased Breath Sounds, Rhonchi Cardiovascular: Regular Rate, Regular Rhythm GI/Abdominal Exam: Normal Bowel Sounds, Soft Extremities: Normal Inspection, No Pedal Edema Skin: Warm, Dry Neurological: No New Focal Deficit - Patient Data Lab Results Last 24 hrs: Laboratory Results - last 24 hr 06/13/21 06/13/21 06/13/21 Range/Units 11:49 17:15 20:45 POC Glucose 288 H 166 H 108 H (75-105) mg/dL 06/14/21 Range/Units 07:47 POC Glucose 320 H (75-105) mg/dL Result Diagrams: 06/09/21 17:33 06/12/21 09:43 Sepsis Event Note - Evaluation Sepsis Screening Result: No Definite Risk - Focused Exam Vital Signs: Vital Signs Temp Pulse Resp BP Pulse Ox 06/14/21 08:00 98 F 88 20 156/69 H 91 L - Problem List & Annotations (1) Pneumonia SNOMED Code(s): 826670111 Code(s): J18.9 - PNEUMONIA, UNSPECIFIED ORGANISM Status: Acute Priority: High Current Visit: Yes Qualifiers: (2) Diabetes mellitus SNOMED Code(s): 70880274 Code(s): E11.9 - TYPE 2 DIABETES MELLITUS WITHOUT COMPLICATIONS Status: Acute Priority: High Current Visit: Yes (3) Generalized weakness SNOMED Code(s): 66547296 Code(s): R53.1 - WEAKNESS Status: Acute Priority: High Current Visit: Yes - Problem List Review Problem List Initiated/Reviewed/Updated: Yes - Assessment Assessment:: Pneumonia Weakness DM Type 2 - Plan Plan:: Patient is resting quietly. Did not eat breakfast this am. Blood sugars have been variable with the D51/2NS, requiring insulin at times but also down to 100 if does not eat at all. Will continue fluids due to anorexia until Tuesday unless opt to change dependent on blood sugars. Repeat labs on Tuesday per Dr. St's order. Social service consult about further discharge plan.
[2021-06-14] MEDS: cefTRIAXone 1 GM Vial IVPUSH SCH (16:35)
[2021-06-14] MEDS: Loratadine 10 MG Tab PO SCH (19:43)
[2021-06-14] MEDS: Enoxaparin 40 MG/0.4 ML Syringe SUBCUT SCH (19:43)
[2021-06-14] MEDS: Donepezil 5 MG Tab PO SCH (19:43)
[2021-06-14] MEDS: Melatonin 3 MG Tab PO SCH (21:44)
[2021-06-15] MEDS: Dextrose 5%-0.45% NaCl 1,000 ML IV SCH ×2 (00:43→14:36)
[2021-06-15] MEDS: Levothyroxine 125 MCG Tab PO SCH (06:30)
[2021-06-15] MEDS: Nystatin Crm 30 GM Tube TOP SCH ×3 (07:51→20:58)
[2021-06-15] MEDS: Potassium Chloride 10 MEQ Tab.ER PO SCH (07:52)
[2021-06-15] MEDS: Aspirin 81 MG Tab.EC PO SCH (07:53)
[2021-06-15] MEDS: Acetaminophen 500 MG Tab PO SCH ×4 (07:53→20:10)
[2021-06-15] MEDS: risperiDONE 0.25 MG Tab PO SCH ×2 (07:53→20:10)
[2021-06-15] MEDS: Insulin Lispro 100 Units/ML 3 ML Vial SUBCUT SCH ×4 (08:18→20:45)
[2021-06-15] MEDS: Insulin Glarg,Human.Rec.Analog 100 Unit/ML SUBCUT SCH ×2 (08:20→20:45)
--- NOTE | 2021-06-15 10:26 | PN ---
DATE: 06/15/2021 S: Juliane has finished 10 days of Rocephin and vancomycin. Her white count is normal. She has been afebrile and her CRP is almost completely resolved. She, however, continues to aspirate and cough at times. She had not been eating well. She has been on IV fluids over the weekend which have kind of perked her up and family have decided they are basically going to make her a code 3 and she cannot go back to [facility] and looks like we are going to place her at the [facility]. O: GENERAL: Her exam today shows her much more alert. She actually talks to me. She answers questions and looks at her sister and does know her name. NECK: At this time is supple. Her veins are flat. LUNGS: Remain rhonchus in the bases, but otherwise clear. No expiratory wheezing. CARDIAC: Tones are regular. ABDOMEN: Soft. EXTREMITIES: No peripheral edema seen. ASSESSMENT: 1. PERSISTENT PNEUMONIA. 2. RECURRENT ASPIRATION. 3. BRONCHIECTASIS. 4. DOWN SYNDROME. P: We are going to plan placement, stop antibiotics at this time. Hopefully, she will continue to improve and start eating. Otherwise, no changes. SAFIA/CAROL ANN /[id number]
[2021-06-15] MEDS: Loratadine 10 MG Tab PO SCH (20:09)
[2021-06-15] MEDS: Donepezil 5 MG Tab PO SCH (20:09)
[2021-06-15] MEDS: Melatonin 3 MG Tab PO SCH (20:10)
[2021-06-15] MEDS: Enoxaparin 40 MG/0.4 ML Syringe SUBCUT SCH (20:54)
[2021-06-16] MEDS: Dextrose 5%-0.45% NaCl 1,000 ML IV SCH (03:39)
[2021-06-16] MEDS: Aspirin 81 MG Tab.EC PO SCH (07:50)
[2021-06-16] MEDS: Potassium Chloride 10 MEQ Tab.ER PO SCH ×2 (07:50→09:00)
[2021-06-16] MEDS: Acetaminophen 500 MG Tab PO SCH ×4 (07:50→19:41)
[2021-06-16] MEDS: Levothyroxine 125 MCG Tab PO SCH (07:51)
[2021-06-16] MEDS: Nystatin Crm 30 GM Tube TOP SCH ×3 (07:51→19:58)
[2021-06-16] MEDS: risperiDONE 0.25 MG Tab PO SCH ×2 (07:51→19:41)
[2021-06-16] MEDS: Insulin Lispro 100 Units/ML 3 ML Vial SUBCUT SCH ×4 (08:24→21:20)
[2021-06-16] MEDS: Insulin Glarg,Human.Rec.Analog 100 Unit/ML SUBCUT SCH ×2 (08:28→19:51)
--- NOTE | 2021-06-16 10:39 | PN ---
DATE: 06/16/2021 S: Jade is continuing to be up and down. She has moments where she is pretty lucid and then times when it is very hard to arouse her. She continues to cough. She is having some aspiration at times. Her chest x-ray yesterday actually looked a little bit worse in both bases. Her proBNP was fine and her lab work has shown improvement, although her CRP remains elevated at 8.1. I did have a long conversation with her sister and her sister has been in contact with all their family members. At this time, they want her to essentially remain a code level 2 and comfort measures. They want all IV antibiotics discontinued. No further aggressive measures for nutrition including G-tube placement. We did have a conversation about her poor oral intake and right now she is getting some D5 half normal. They want that discontinued as well. ASSESSMENT: 1. PERSISTENT PNEUMONIA. 2. DOWN SYNDROME. 3. DEMENTIA. 4. TYPE 2 DIABETES, REQUIRING INSULIN, LABILE. 5. HYPOTHYROIDISM. P: We switched her over to code 2 with comfort measure orders made. We will continue oral medications at this time and insulin of course and we are waiting for placement at this point. SAFIA/CAROL ANN /[id number]
[2021-06-16] MEDS: Loratadine 10 MG Tab PO SCH (19:41)
[2021-06-16] MEDS: Melatonin 3 MG Tab PO SCH (19:41)
[2021-06-16] MEDS: Enoxaparin 40 MG/0.4 ML Syringe SUBCUT SCH (19:41)
[2021-06-16] MEDS: Donepezil 5 MG Tab PO SCH (19:41)
[2021-06-17] MEDS: Levothyroxine 125 MCG Tab PO SCH (06:27)
[2021-06-17] MEDS: Acetaminophen 500 MG Tab PO SCH ×3 (07:54→19:46)
[2021-06-17] MEDS: Nystatin Crm 30 GM Tube TOP SCH ×3 (07:54→19:48)
[2021-06-17] MEDS: Potassium Chloride 10 MEQ Tab.ER PO SCH (07:54)
[2021-06-17] MEDS: risperiDONE 0.25 MG Tab PO SCH ×2 (07:54→19:46)
[2021-06-17] MEDS: Aspirin 81 MG Tab.EC PO SCH (07:54)
[2021-06-17] MEDS: Insulin Glarg,Human.Rec.Analog 100 Unit/ML SUBCUT SCH ×2 (07:55→19:45)
[2021-06-17] MEDS: Insulin Lispro 100 Units/ML 3 ML Vial SUBCUT SCH ×4 (07:58→20:19)
[2021-06-17] MEDS: Enoxaparin 40 MG/0.4 ML Syringe SUBCUT SCH (19:45)
[2021-06-17] MEDS: Melatonin 3 MG Tab PO SCH (19:46)
[2021-06-17] MEDS: Loratadine 10 MG Tab PO SCH (19:46)
[2021-06-17] MEDS: Donepezil 5 MG Tab PO SCH (19:47)
[2021-06-18] MEDS: Levothyroxine 125 MCG Tab PO SCH (06:00)
[2021-06-18] MEDS: Aspirin 81 MG Tab.EC PO SCH (07:42)
[2021-06-18] MEDS: Acetaminophen 500 MG Tab PO SCH ×4 (07:42→19:19)
[2021-06-18] MEDS: risperiDONE 0.25 MG Tab PO SCH ×2 (07:42→19:20)
[2021-06-18] MEDS: Potassium Chloride 10 MEQ Tab.ER PO SCH ×2 (07:42→09:41)
[2021-06-18] MEDS: Nystatin Crm 30 GM Tube TOP SCH ×3 (07:46→19:47)
[2021-06-18] MEDS: Insulin Lispro 100 Units/ML 3 ML Vial SUBCUT SCH ×4 (07:46→21:25)
[2021-06-18] MEDS: Insulin Glarg,Human.Rec.Analog 100 Unit/ML SUBCUT SCH ×2 (07:46→19:40)
[2021-06-18] MEDS: Loratadine 10 MG Tab PO SCH (19:20)
[2021-06-18] MEDS: Melatonin 3 MG Tab PO SCH (19:20)
[2021-06-18] MEDS: Donepezil 5 MG Tab PO SCH (19:20)
[2021-06-18] MEDS: Enoxaparin 40 MG/0.4 ML Syringe SUBCUT SCH (19:21)
[2021-06-19] MEDS: Levothyroxine 125 MCG Tab PO SCH (06:37)
[2021-06-19] MEDS: risperiDONE 0.25 MG Tab PO SCH ×2 (08:16→19:56)
[2021-06-19] MEDS: Potassium Chloride 10 MEQ Tab.ER PO SCH (08:16)
[2021-06-19] MEDS: Acetaminophen 500 MG Tab PO SCH ×3 (08:16→19:56)
[2021-06-19] MEDS: Aspirin 81 MG Tab.EC PO SCH (08:17)
[2021-06-19] MEDS: Insulin Lispro 100 Units/ML 3 ML Vial SUBCUT SCH ×4 (08:17→20:51)
[2021-06-19] MEDS: Insulin Glarg,Human.Rec.Analog 100 Unit/ML SUBCUT SCH ×2 (09:10→20:47)
[2021-06-19] MEDS: Nystatin Crm 30 GM Tube TOP SCH ×3 (12:04→19:59)
[2021-06-19] MEDS: Melatonin 3 MG Tab PO SCH (19:55)
[2021-06-19] MEDS: Donepezil 5 MG Tab PO SCH (19:55)
[2021-06-19] MEDS: Loratadine 10 MG Tab PO SCH (19:55)
[2021-06-19] MEDS: Enoxaparin 40 MG/0.4 ML Syringe SUBCUT SCH (19:57)
[2021-06-20] MEDS: Levothyroxine 125 MCG Tab PO SCH (06:48)
[2021-06-20] MEDS: Nystatin Crm 30 GM Tube TOP SCH ×3 (08:15→19:49)
[2021-06-20] MEDS: Aspirin 81 MG Tab.EC PO SCH (08:24)
[2021-06-20] MEDS: Potassium Chloride 10 MEQ Tab.ER PO SCH (08:24)
[2021-06-20] MEDS: Insulin Lispro 100 Units/ML 3 ML Vial SUBCUT SCH ×4 (08:25→20:29)
[2021-06-20] MEDS: Acetaminophen 500 MG Tab PO SCH ×3 (08:25→19:44)
[2021-06-20] MEDS: risperiDONE 0.25 MG Tab PO SCH ×2 (08:25→19:44)
[2021-06-20] MEDS: Insulin Glarg,Human.Rec.Analog 100 Unit/ML SUBCUT SCH ×2 (08:27→19:55)
[2021-06-20] MEDS: Loratadine 10 MG Tab PO SCH (19:41)
[2021-06-20] MEDS: Donepezil 5 MG Tab PO SCH (19:41)
[2021-06-20] MEDS: Melatonin 3 MG Tab PO SCH (19:43)
[2021-06-20] MEDS: Enoxaparin 40 MG/0.4 ML Syringe SUBCUT SCH (19:43)
[2021-06-21] MEDS: Levothyroxine 125 MCG Tab PO SCH (06:40)
[2021-06-21] MEDS: Aspirin 81 MG Tab.EC PO SCH (08:01)
[2021-06-21] MEDS: risperiDONE 0.25 MG Tab PO SCH ×2 (08:01→19:53)
[2021-06-21] MEDS: Insulin Lispro 100 Units/ML 3 ML Vial SUBCUT SCH ×4 (08:01→20:55)
[2021-06-21] MEDS: Acetaminophen 500 MG Tab PO SCH ×3 (08:01→19:52)
[2021-06-21] MEDS: Potassium Chloride 10 MEQ Tab.ER PO SCH (08:01)
[2021-06-21] MEDS: Nystatin Crm 30 GM Tube TOP SCH ×3 (08:01→19:51)
[2021-06-21] MEDS: Insulin Glarg,Human.Rec.Analog 100 Unit/ML SUBCUT SCH ×2 (08:51→20:54)
[2021-06-21] MEDS: Donepezil 5 MG Tab PO SCH (19:48)
[2021-06-21] MEDS: Enoxaparin 40 MG/0.4 ML Syringe SUBCUT SCH (19:49)
[2021-06-21] MEDS: Melatonin 3 MG Tab PO SCH (19:50)
[2021-06-21] MEDS: Loratadine 10 MG Tab PO SCH (19:54)
[2021-06-22] MEDS: Glucagon,Human Recombinant 1 MG Vial IM PRN (01:41)
[2021-06-22] MEDS: Levothyroxine 125 MCG Tab PO SCH (06:25)
[2021-06-22] MEDS: Insulin Lispro 100 Units/ML 3 ML Vial SUBCUT SCH ×4 (07:30→20:34)
[2021-06-22] MEDS: Insulin Glarg,Human.Rec.Analog 100 Unit/ML SUBCUT SCH ×2 (07:30→20:32)
[2021-06-22] MEDS: Acetaminophen 500 MG Tab PO SCH ×3 (07:37→20:39)
[2021-06-22] MEDS: Potassium Chloride 10 MEQ Tab.ER PO SCH (07:37)
[2021-06-22] MEDS: Aspirin 81 MG Tab.EC PO SCH (07:37)
[2021-06-22] MEDS: Nystatin Crm 30 GM Tube TOP SCH ×3 (07:38→19:40)
[2021-06-22] MEDS: risperiDONE 0.25 MG Tab PO SCH ×2 (07:38→19:39)
[2021-06-22] MEDS: Melatonin 3 MG Tab PO SCH (19:38)
[2021-06-22] MEDS: Loratadine 10 MG Tab PO SCH (19:39)
[2021-06-22] MEDS: Enoxaparin 40 MG/0.4 ML Syringe SUBCUT SCH (19:39)
[2021-06-22] MEDS: Donepezil 5 MG Tab PO SCH (19:39)
[2021-06-22] MEDS ORDERED: Insulin Lispro 100 Units/ML 3 ML Vial SUBCUT ONE (22:03)
[2021-06-23] MEDS: Levothyroxine 125 MCG Tab PO SCH (06:49)
[2021-06-23] MEDS: Nystatin Crm 30 GM Tube TOP SCH ×3 (07:31→19:48)
[2021-06-23] MEDS: Acetaminophen 500 MG Tab PO SCH ×4 (07:31→19:48)
[2021-06-23] MEDS: Aspirin 81 MG Tab.EC PO SCH (07:32)
[2021-06-23] MEDS: Potassium Chloride 10 MEQ Tab.ER PO SCH (07:32)
[2021-06-23] MEDS: risperiDONE 0.25 MG Tab PO SCH ×2 (07:32→19:48)
[2021-06-23] MEDS: Insulin Glarg,Human.Rec.Analog 100 Unit/ML SUBCUT SCH ×2 (08:17→19:53)
[2021-06-23] MEDS: Insulin Lispro 100 Units/ML 3 ML Vial SUBCUT SCH ×5 (08:19→22:33)
--- NOTE | 2021-06-23 11:15 | PN ---
DATE: 06/23/2021 S: Juliane has been doing okay. She is drinking and eating certainly less than she had been. Her behaviors have been improved. I had a long talk with her sister who was present at her side. She is not requiring any supplemental O2, having minimal to no cough. Unfortunately, both nursing homes in the area have not been able to accept her due to lack of staffing. She has been made basically a code 3 with no further diagnostic or aggressive measures. She is not cooperative with PT and so at this point she is not skilled in our facility. O: GENERAL: She is pleasant and cooperative today. She does not answer questions appropriately, does point at her sister, but does not say her name. HEENT: Grossly benign. NECK: Veins are flat. LUNGS: Sounds are improved in both bases, still a little rhonchus. CARDIAC: Tones are regular. She has no abdominal pain. No peripheral edema. ASSESSMENT: 1. BIBASILAR PNEUMONIA, IMPROVED. 2. DOWN SYNDROME. 3. DEMENTIA WITH BEHAVIORS. 4. POOR INTAKE. 5. INSULIN-DEPENDENT DIABETES. P: We will continue with sliding scale only. She bottoms out very easily, and with her poor intake, we are not giving her any scheduled insulin. We will continue to attempt to find placement. Family's desire is for to go to the [facility] and so I will attempt to call them again. SAFIA/CAROL ANN /[id number]
[2021-06-23] MEDS: Glucagon,Human Recombinant 1 MG Vial IM PRN (14:42)
[2021-06-23] MEDS: Donepezil 5 MG Tab PO SCH (19:46)
[2021-06-23] MEDS: Melatonin 3 MG Tab PO SCH (19:47)
[2021-06-23] MEDS: Enoxaparin 40 MG/0.4 ML Syringe SUBCUT SCH (19:47)
[2021-06-23] MEDS: Loratadine 10 MG Tab PO SCH (19:47)
[2021-06-24] MEDS: Levothyroxine 125 MCG Tab PO SCH (07:13)
[2021-06-24] MEDS: Acetaminophen 500 MG Tab PO SCH ×4 (07:14→20:57)
[2021-06-24] MEDS: Aspirin 81 MG Tab.EC PO SCH (07:14)
[2021-06-24] MEDS: Potassium Chloride 10 MEQ Tab.ER PO SCH (07:15)
[2021-06-24] MEDS: risperiDONE 0.25 MG Tab PO SCH ×2 (07:15→19:50)
[2021-06-24] MEDS: Insulin Lispro 100 Units/ML 3 ML Vial SUBCUT SCH ×4 (08:15→20:48)
[2021-06-24] MEDS: Nystatin Crm 30 GM Tube TOP SCH ×3 (08:41→19:50)
[2021-06-24] MEDS: Loratadine 10 MG Tab PO SCH (19:49)
[2021-06-24] MEDS: Donepezil 5 MG Tab PO SCH (19:49)
[2021-06-24] MEDS: Enoxaparin 40 MG/0.4 ML Syringe SUBCUT SCH (19:50)
[2021-06-24] MEDS: Melatonin 3 MG Tab PO SCH (19:50)
[2021-06-25] MEDS: Levothyroxine 125 MCG Tab PO SCH (06:28)
[2021-06-25] MEDS: Potassium Chloride 10 MEQ Tab.ER PO SCH (08:05)
[2021-06-25] MEDS: risperiDONE 0.25 MG Tab PO SCH ×2 (08:05→21:56)
[2021-06-25] MEDS: Acetaminophen 500 MG Tab PO SCH ×2 (08:05→14:53)
[2021-06-25] MEDS: Nystatin Crm 30 GM Tube TOP SCH ×2 (08:05→15:05)
[2021-06-25] MEDS: Aspirin 81 MG Tab.EC PO SCH (08:05)
[2021-06-25] MEDS: Insulin Lispro 100 Units/ML 3 ML Vial SUBCUT SCH ×5 (12:49→23:12)
[2021-06-25] MEDS ORDERED: Acetaminophen 500 MG Tab PO PRN (14:55)
[2021-06-25] MEDS ORDERED: Nystatin Crm 30 GM Tube TOP PRN (15:05)
[2021-06-25] MEDS: Enoxaparin 40 MG/0.4 ML Syringe SUBCUT SCH (20:28)
[2021-06-25] MEDS: Melatonin 3 MG Tab PO SCH (21:55)
[2021-06-25] MEDS: Donepezil 5 MG Tab PO SCH (21:55)
[2021-06-25] MEDS: Loratadine 10 MG Tab PO SCH (21:55)
[2021-06-26] MEDS: Levothyroxine 125 MCG Tab PO SCH (06:33)
[2021-06-26] MEDS: risperiDONE 0.25 MG Tab PO SCH ×2 (07:44→19:24)
[2021-06-26] MEDS: Aspirin 81 MG Tab.EC PO SCH (07:44)
[2021-06-26] MEDS: Potassium Chloride 10 MEQ Tab.ER PO SCH (07:44)
[2021-06-26] MEDS: Insulin Lispro 100 Units/ML 3 ML Vial SUBCUT SCH ×4 (07:48→23:15)
[2021-06-26] MEDS: Enoxaparin 40 MG/0.4 ML Syringe SUBCUT SCH (19:24)
[2021-06-26] MEDS: Melatonin 3 MG Tab PO SCH (19:24)
[2021-06-26] MEDS: Donepezil 5 MG Tab PO SCH (19:24)
[2021-06-26] MEDS: Loratadine 10 MG Tab PO SCH (19:24)
[2021-06-26] MEDS ORDERED: Insulin Lispro 100 Units/ML 3 ML Vial SUBCUT ONE (22:58)
[2021-06-27] MEDS: Levothyroxine 125 MCG Tab PO SCH (06:52)
[2021-06-27] MEDS: risperiDONE 0.25 MG Tab PO SCH ×2 (07:51→19:43)
[2021-06-27] MEDS: Potassium Chloride 10 MEQ Tab.ER PO SCH (07:51)
[2021-06-27] MEDS: Aspirin 81 MG Tab.EC PO SCH (07:51)
[2021-06-27] MEDS: Insulin Lispro 100 Units/ML 3 ML Vial SUBCUT SCH ×4 (08:20→21:00)
[2021-06-27] MEDS: Donepezil 5 MG Tab PO SCH (19:43)
[2021-06-27] MEDS: Loratadine 10 MG Tab PO SCH (19:43)
[2021-06-27] MEDS: Melatonin 3 MG Tab PO SCH (19:43)
[2021-06-27] MEDS: Enoxaparin 40 MG/0.4 ML Syringe SUBCUT SCH (19:43)
[2021-06-28] MEDS: Aspirin 81 MG Tab.EC PO SCH (07:50)
[2021-06-28] MEDS: Levothyroxine 125 MCG Tab PO SCH (07:50)
[2021-06-28] MEDS: Potassium Chloride 10 MEQ Tab.ER PO SCH ×2 (07:51→09:03)
[2021-06-28] MEDS: risperiDONE 0.25 MG Tab PO SCH ×2 (07:51→19:37)
[2021-06-28] MEDS: Acetaminophen 650 MG Supp RECTAL PRN ×3 (07:55→22:08)
[2021-06-28] MEDS: Insulin Lispro 100 Units/ML 3 ML Vial SUBCUT SCH ×4 (07:56→20:54)
[2021-06-28] MEDS: Enoxaparin 40 MG/0.4 ML Syringe SUBCUT SCH (19:36)
[2021-06-28] MEDS: Melatonin 3 MG Tab PO SCH (19:37)
[2021-06-28] MEDS: Loratadine 10 MG Tab PO SCH (19:37)
[2021-06-28] MEDS: Donepezil 5 MG Tab PO SCH (19:37)
[2021-06-29] MEDS: Acetaminophen 650 MG Supp RECTAL PRN ×2 (03:00→08:24)
[2021-06-29] MEDS ORDERED: Clopidogrel 75 MG Tab PO SCH (08:00)
[2021-06-29 08:02] VITALS: BP 131/48; PULSE 113
[2021-06-29] MEDS: Insulin Lispro 100 Units/ML 3 ML Vial SUBCUT SCH (08:12)
--- NOTE | 2021-06-29 13:10 | DISCH ---
This is a discharge from swing bed. ADMISSION DIAGNOSES: 1. Recurrent pneumonia. 2. Type 2 diabetes, requiring insulin, labile. 3. Down syndrome. 4. Weakness. DISCHARGE DIAGNOSIS: 1. RECURRENT PNEUMONIA WITH ASPIRATION. 2. BRONCHIECTASIS. 3. DOWN SYNDROME. 4. LABILE DIABETES REQUIRING INSULIN. HISTORY: The patient is a 65-year-old female who was ultimately admitted to acute care with recurrent pneumonia. She has been aspirating with intake and she has been on antibiotics for quite some time. We elected to put her into the hospital. She got 10 days of Rocephin and vancomycin and ultimately still was having ongoing symptoms. We put her in swing bed where we stopped her IV and gave her some strengthening. Family was present including her sister who is a nurse. HOSPITAL COURSE: The patient was continuing to wax and wane in our swing bed facility. We did give her some IV fluids for time as her intake was very poor. She had a little bit of improvement in her symptoms, but for the most part, she continued to have cough. She was aspirating and coughing with meals. Family were very consistent with lack of desire for a feeding tube, current or ongoing IV antibiotics, or IV fluids and ultimately made her a code level 3, and we have been keeping her in swing bed until she can have placement. She has previously been a [address] [place] [address] resident due to her Down syndrome and inability to care for herself. At this time, the patient has been having very poor oral intake. Family have asked that we stop all oral medications, and we will do that. She has been getting sliding scale insulin as she is a very labile diabetic and we will [facility] that at the [facility] as well. The patient will essentially be made comfort cares. Family wants nothing given other than things to keep her comfortable including control of her blood sugars as best as possible. Her appetite remains tenuous and her intake is poor, and I expect her longevity is minimal at this point. COMPLICATIONS: During swing bed stay are none. CONSULTATIONS: None. DISPOSITION: Discharged to [facility] for comfort measures via family request. SAFIA/CAROL ANN /[id number]
== END 2021-06-29 11:00 | DRG 178 ==
LOC: CC.MS 11:08 → UNDOADMIN 11:30 → CC.MS 11:30
PROVIDERS: ADMIT Physician Assistant Medical; ATTEND Family Medicine
DX: J69.0 Pneumonitis due to inhalation of food and vomit (principal); F03.91 Unspecified dementia, unspecified severity, with behavioral disturbance; J47.9 Bronchiectasis, uncomplicated; E11.9 Type 2 diabetes mellitus without complications; E03.9 Hypothyroidism, unspecified; Z51.5 Encounter for palliative care; Z79.82 Long term (current) use of aspirin; Z79.4 Long term (current) use of insulin; Z79.890 Hormone replacement therapy; Z79.899 Other long term (current) drug therapy; Q90.9 Down syndrome, unspecified
CPT/HCPCS: 36415; 71045; 80048; 80202; 82947; 83880; 85025; 86140; 97110-GP; 97161-GP; 97530-GP; A9270-GY; J0696; J1610; J1650; J1815-GY; J3370; J7042; J7050; J7620-GY